=== PATIENT | female | born 1985 | race Caucasian/White ===

== ENCOUNTER 2016-12-03 14:30 | Inpatient (IN) | payer OTHER ==
[2016-12-03 14:42] VITALS: BMI 39.6
[2016-12-03] MEDS ORDERED: Sodium Chloride 0.9% 500 ML IV ONE (17:12)
[2016-12-03 18:02] LABS: BASO # 0.1 K/uL (0.0-0.2); BASO % 0.8 % (0.0-2.0); EOS # 0.1 K/uL (0.0-0.7); EOS % 1.2 % (0.0-4.0); HEMATOCRIT 30.5 % (34.0-47.0); LYMPH # 1.5 K/uL (1.0-4.3); MEAN CELL VOLUME 90.2 fL (81.0-99.0); MEAN CORPUSCULAR HGB CONC 31.1 g/dL (33.0-37.0); MEAN PLATELET VOLUME 8.2 fL (7.2-11.7); MONO # 0.7 K/uL (0.0-0.8); MONO % 6.9 % (0.0-10.0); RED CELL DISTRIBUTION WIDTH 25.4 % (11.5-14.5); WHITE BLOOD COUNT 9.8 K/uL (4.8-10.8)
[2016-12-03] MEDS ORDERED: Sodium Chloride 0.9% 1,000 ML ONE (18:02)
[2016-12-03 18:12] LABS: CHLORIDE 100 mmol/L (98-107); INR 1.5; POTASSIUM 3.5 mmol/L (3.6-5.2); SODIUM 137 mmol/L (132-148)
[2016-12-03 18:14] LABS: AST/SGOT 278 U/L (14-36); BILIRUBIN,TOTAL 4.9 mg/dL (0.2-1.3); CARBON DIOXIDE 27 mmol/L (22-30); GFR AFRICAN-AMERICAN > 60
[2016-12-03 18:15] LABS: ALB/GLOB RATIO 0.6 (1.0-2.1); ALKALINE PHOSPHATASE 516 U/L (38-126); ALT/SGPT 38 U/L (9-52); BLOOD UREA NITROGEN 3 mg/dL (7-17); CALCIUM 7.1 mg/dl (8.6-10.4); GLUCOSE,RANDOM 95 mg/dL (65-105); TOTAL PROTEIN 7.3 g/dL (6.3-8.3)
[2016-12-03 18:16] LABS: ALCOHOL SERUM 144 mg/dl (0-10)
[2016-12-03 19:23] LABS: RBC URINE 14 /hpf (0-3); URINE BACTERIA MOD (<OCC); URINE BILIRUBIN 2+ (NEGATIVE); URINE BLOOD 2+ (NEGATIVE); URINE COLOR Amber (YELLOW); URINE GLUCOSE (UA) 1+ mg/dL (Normal); URINE KETONE TRACE mg/dL (NEGATIVE); URINE PROTEIN 1+ mg/dL (NEGATIVE); WBC URINE 6 /hpf (0-5)
[2016-12-03 19:25] LABS: URINE LEUKOCYTE ESTERASE 1+ Leu/uL (Negative)
[2016-12-03] MEDS ORDERED: Iohexol 240 (50 ml) PO STA (19:55)
[2016-12-03] MEDS ORDERED: Multivitamin (MVI) 10 ML, Thiamine 100 MG, Folic Acid 1 MG in Sodium Chloride 0.9% 1,00... IV STA (19:56)
[2016-12-03] MEDS ORDERED: Iohexol 240 (50 ml) ONE (20:05)
[2016-12-03] MEDS ORDERED: Iohexol 350mg/ml 100 ML ONE (23:00)
--- NOTE | 2016-12-03 23:15 | CT ---
EXAM: CT Abdomen and Pelvis With Intravenous Contrast CLINICAL HISTORY: 31 years old, female; Pain; Abdominal pain; Epigastric; Additional info: Abd pain, alcohol abuse. H/o gastric sleeve? TECHNIQUE: Axial computed tomography images of the abdomen and pelvis with intravenous contrast. This CT exam was performed using one or more of the following dose reduction techniques: automated exposure control, adjustment of the mA and/or kV according to patient size, and/or use of iterative reconstruction technique. Coronal and sagittal reformatted images were created and reviewed. CONTRAST: 100 mL of omnipaque 350 administered intravenously. EXAM DATE/TIME: 12/03/2016 7:55 PM COMPARISON: There are no prior studies for comparison. FINDINGS: Lower thorax: Heart size is normal. There are atelectatic changes at the lung bases. There is patchy airspace disease at the lung bases. ABDOMEN: Liver: The liver is enlarged. There is fatty infiltration of the liver. Gallbladder and bile ducts: Gallbladder is distended. Common bile duct is poorly visualized. Pancreas: unremarkable Spleen: The spleen is enlarged. Adrenals: unremarkable Kidneys and ureters: unremarkable Stomach and bowel: There are postsurgical changes of gastric bypass. There is no obstruction. There is a small bowel intussusception in the mid abdomen without obstruction. There is a small bowel intussusception in the right abdomen without obstruction. There is mild distal small bowel fold thickening and spiculation. Terminal ileum and cecum are incompletely opacified. Appendix is not identified.Colon is incompletely distended which limits evaluation.There is diverticulosis. Appendix: See stomach and bowel PELVIS: Bladder: Bladder is almost empty. Reproductive: Uterus and adnexal structures are unremarkable. ABDOMEN and PELVIS: Intraperitoneal space: There is ascites in the abdomen and pelvis. There is anasarca.There is no There are degenerative changes in the osseus structures. Soft tissues: There is anasarca. Vasculature: unremarkable Lymph nodes: Vascular structures are unremarkable.There are nodular opacities in the retroperitoneum, varices versus nodes. IMPRESSION: Enlarged fatty liver and splenomegaly; ascites possibly due to liver disease; gastric bypass without obstruction; nonobstructing small bowel intussusceptions; possible enteritis; diverticulosis Additional findings as described above.
--- NOTE | 2016-12-04 00:07 | C.PDOC ---
Time Seen by Provider: 12/03/16 16:54 Chief Complaint (Nursing): Abdominal Pain History Per: Patient, Family Onset/Duration Of Symptoms: Days Current Symptoms Are (Timing): Still Present Context: Other (Alcohol abuse) Severity: Moderate Location Of Pain/Discomfort: RUQ, Epigastric, LUQ Quality Of Discomfort: Unable To Describe Associated Symptoms: Nausea Alleviating Factors: None Additional History Per: Prior Records Past Medical History Reviewed: Historical Data, Nursing Documentation, Vital Signs Vital Signs: Last Vital Signs Temp 100.4 F H 12/03/16 21:01 Pulse 107 H 12/03/16 21:01 Resp 22 12/03/16 21:01 BP 107/71 12/03/16 21:01 Pulse Ox 98 12/03/16 21:01 - Medical History PMH: Anemia, Anxiety, Back Problems Surgical History: Tonsillectomy Other Surgeries: Gastric bypass Family History: States: Unknown Family Hx - Social History Hx Tobacco Use: Yes Hx Alcohol Use: Yes Hx Substance Use: No - Immunization History Hx Tetanus Toxoid Vaccination: No Hx Influenza Vaccination: Yes Hx Pneumococcal Vaccination: No Review Of Systems Except As Marked, All Systems Reviewed And Found Negative. Constitutional: Positive for: Malaise Cardiovascular: Positive for: Edema. Negative for: Chest Pain Respiratory: Negative for: Shortness of Breath Gastrointestinal: Positive for: Abdominal Pain. Negative for: Vomiting, Diarrhea Musculoskeletal: Negative for: Neck Pain Skin: Positive for: Jaundice Neurological: Negative for: Weakness, Numbness, Seizures, Altered Mental Status Physical Exam - Physical Exam Appears: Chronically Ill Skin: Warm, Dry, Jaundice Head: Atraumatic Eye(s): bilateral: PERRL, EOMI, Scleral Icterus Neck: Normal ROM, Supple Cardiovascular: Rhythm Regular Respiratory: Normal Breath Sounds, No Accessory Muscle Use Gastrointestinal/Abdominal: Soft, Tenderness (nonspecific upper), Ascites Back: No CVA Tenderness Extremity: Normal ROM, Pedal Edema Neurological/Psych: Oriented x3, Normal Motor, Normal Sensation ED Course And Treatment - Laboratory Results Result Diagrams: 12/03/16 17:56 12/03/16 17:56 Lab Interpretation: Abnormal Interpretation Of Abnormal: Jaundice. Abnormal LFTs. Urine POC: Negative O2 Sat by Pulse Oximetry: 98 Pulse Ox Interpretation: Normal - Radiology CXR: Interpreted by Me, Viewed By Me CXR Interpretation: Yes: No Acute Disease - CT Scan/US CT abd/pelv. Other Rad Studies (CT/US): Read By Radiologist, Radiology Report Reviewed CT/US Interpretation: IMPRESSION: Enlarged fatty liver and splenomegaly; ascites possibly due to. liver disease; gastric bypass without obstruction; nonobstructing small bowel. intussusceptions; possible enteritis; diverticulosis. . Additional findings as described above. Progress - Interventions Interventions:: Observation, Intravenous fluid - Medications Administered Intravenous: Antiemetic, Other (PPI) - Data Reviewed Data Reviewed: Lab, Diagnostic imaging, Old records - Patient Status Patient status: Partially improved - Continuity of Care Discussed patient case with:: Patient, Family-HIPPA compliant, ED Nurse, Covering for PMD - Patient Plan Patient Plan: Admission Disposition Discussed With : Zachary Chung Comment: He accepted pt on his service. Doctor Will See Patient In The: Hospital Counseled Patient/Family Regarding: Studies Performed, Diagnosis - Disposition Disposition: HOSPITALIZED Disposition Time: 00:10 Condition: GUARDED - Clinical Impression Clinical Impression: Ascites, Hepatosplenomegaly, Jaundice, Alcohol abuse, Intussusception of small intestine
[2016-12-04] MEDS ORDERED: Ciprofloxacin 400mg/200ml D5W 400 MG/200 ML BAG IVPB STA (00:55)
[2016-12-04] MEDS ORDERED: Ciprofloxacin 400mg/200ml D5W 400 MG/200 ML BAG IVPB ONE (01:08)
[2016-12-04] MEDS ORDERED: Sodium Chloride 0.9% 1,000 ML IV SCH ×2 (13:00→15:08)
[2016-12-04] MEDS: Ciprofloxacin 400mg/200ml D5W 400 MG/200 ML BAG IVPB SCH (13:15)
--- NOTE | 2016-12-04 15:00 | RAD ---
HISTORY: Fever COMPARISON: None available. TECHNIQUE: Chest, one view. FINDINGS: Examination limited by habitus and hypoinflation. LUNGS: No focal consolidation. Central vascular congestion. Please note that chest x-ray has limited sensitivity for the detection of pulmonary masses. PLEURA: No significant pleural effusion identified. No definite pneumothorax . CARDIOVASCULAR: Heart size appears within normal limits. OSSEOUS STRUCTURES: Degenerative changes of the spine. VISUALIZED UPPER ABDOMEN: Mild elevation of the right hemidiaphragm. OTHER FINDINGS: None. IMPRESSION: Hypoinflation. Central vascular congestion.
--- NOTE | 2016-12-04 15:46 | PCM.PSYCH ---
Initial Psychiatric Evaluation - Initial Psychiatric Evaluation Type of Admission: Voluntary Legal Status: Capacity Chief Complaint (in patient's own words): I came in to get help." History of Present Illness and Precipitating Events: This is a 31 y/o HF admitted at [facility] because of abdominal pain. Today patient was consulted because of history of depression and alcohol abuse. Patient reports of a long history of alcohol abuse and depression. However she denies any history of inpatient psychiatric hospitalization but reports history of follow-up with a psychiatrist. As per the patient she has been drinking more than 5-10 beers on a daily basis. Yesterday she was drinking when she started developing abdominal pain so she came to the hospital to get help. Patient reports withdrawal symptoms including sweating, anxiety and headaches and shakes. However patient denies any feelings of hopelessness or helplessness or worthlessness. Patient denies any auditory or visual hallucinations or any psychotic symptoms. Denies any suicidal ideation or homicidal ideation. Denies any manic symptoms. Denies any other substance abuse. Past medical history None reported Current Medications: Active Medications Generic Name Dose Route Start Last Admin Trade Name Freq PRN Reason Stop Dose Admin Acetaminophen 650 mg 12/04/16 01:27 12/04/16 01:30 Tylenol 325mg Tab PO 650 mg Q6 PRN Administration Fever >100.4 F Chlordiazepoxide 25 mg 12/04/16 12:54 12/04/16 13:14 Librium PO 25 mg Q8 PRN Administration Anxiety Folic Acid 1 mg 12/04/16 13:00 12/04/16 13:14 Folic Acid PO 1 mg DAILY GERONIMO Administration Ciprofloxacin 400 mg in 200 mls @ 133 mls/hr 12/04/16 13:00 12/04/16 13:15 Cipro 400mg/200ml Dsw IVPB 133 mls/hr Q12H GERONIMO Administration Sodium Chloride 1,000 mls @ 70 mls/hr 12/04/16 15:08 Sodium Chloride 0.9% IV .[id number] GERONIMO Pantoprazole Sodium 40 mg 12/04/16 10:00 12/04/16 11:32 Protonix Inj IVP 40 mg DAILY GERONIMO Administration Thiamine HCl 100 mg 12/04/16 13:00 12/04/16 13:14 Vitamin B1 Tab PO 100 mg DAILY GERONIMO Administration Past Psychiatric History - Past Psychiatric History Previous Treatment History: Inpatient Pertinent Medical Hx (Current Medical&Sleep Prob, Allergies): Allergies Allergy/AdvReac Type Severity Reaction Status Date / Time Penicillins Allergy Severe ANAPHYLAXIS Verified 12/03/16 14:41 No Known Home Med 12/03/16 Review of Systems - Review of Systems All systems: reviewed and no additional remarkable complaints except - Psychiatric Psychiatric: Anxiety, Depression, Irritability. absent: Auditory Hallucinations , Suicidal Ideation Mental Status Examination - Personal Presentation Personal Presentation: Looks stated age - Affect Affect: Constricted, Depressed - Motor Activity Motor Activity: Calm - Reliability in Providing Information Reliability in Providing Information: Good - Speech Speech: Organized - Mood Mood: Depressed, Anxious - Formal Thought Process Formal Thought Process: No Impairment - Obsessions/Compulsions Obsessions: No Compulsions: No - Cognitive Functions Orientation: Person, Place, Situation, Time Sensorium: Alert Attention/Concentration: Attentive Abstract Thinking: [place] Estimate of Intelligence: Below average Judgement: Imparied, as evidence by: Poor judgement, Intact, as evidence by: Insight regarding need for hospitalization - Risk Risk: Withdrawal, Diminished functioning - Strength & Assets Inventory Strength & Assets Inventory: Family support DSM 5 DX - DSM 5 DSM 5 Diagnosis: Alcohol use disorder severe Alcohol withdrawal uncomplicated Major depressive disorder recurrrent moderate - Recommended/Plan of Treatment Treatment Recommendations and Plan of Treatment: Alcohol use disorder severe CBT Psychoeducation Supportive therapy, individual therapy Use MO for abstinence Alcohol withdrawal uncomplicated CBT Psychoeducation Supportive therapy, individual therapy Atrivan when necessary Atvan taper Start folic acid/thiamine/multivitamin Major depressive disorder recurrrent moderate CBT Psychoeducation Supportive therapy, group therapy, individual therapy Zoloft 50 mg PO Daily Trazodone 50 mg by mouth daily at bedtime
[2016-12-04 16:25] LABS: CHLORIDE 102 mmol/L (98-107); POTASSIUM 3.4 mmol/L (3.6-5.2); SODIUM 135 mmol/L (132-148)
[2016-12-04 16:28] LABS: CARBON DIOXIDE 26 mmol/L (22-30); GFR AFRICAN-AMERICAN > 60
[2016-12-04 16:29] LABS: BLOOD UREA NITROGEN 2 mg/dL (7-17); GLUCOSE,RANDOM 87 mg/dL (65-105)
--- NOTE | 2016-12-04 16:57 | CP.PCM.CON ---
<Rell Hutchinson - Last Filed: 12/04/16 16:51> History of Present Illness - History of Present Illness History of Present Illness: Gen Sx Consult: Dr Padron Pt is a 31F with PMH of gastric bypass and EtOH abuse. Pt presents with a 1month history of vague abdominal pain, 4/10, cramping in nature. Pt states she has had intermittent nausea, but only spits up saliva. Intermittently she will have streaks of blood. Also complains of excessive vaginal bleeding during her menstrual cycle. Pt admits to not taking bariatric vitamins regularly. Originally admitted for detox for EtOH abuse. CT abd performed due to abdominal pain, and read as concerning for intussussception. Review of Systems - Review of Systems All systems: reviewed and no additional remarkable complaints except (as per hpi ) Past Patient History - Past Medical History & Family History Past Medical History?: Yes - Past Social History Smoking Status: Quit 3 mos - CARDIAC Hx Cardiac Disorders: No - PULMONARY Hx Respiratory Disorders: No - NEUROLOGICAL Hx Neurological Disorder: No - HEENT Hx HEENT Problems: No - RENAL Hx Chronic Kidney Disease: No - ENDOCRINE/METABOLIC Hx Endocrine Disorders: No - HEMATOLOGICAL/ONCOLOGICAL Hx Blood Disorders: Yes Hx Anemia: Yes - INTEGUMENTARY Hx Dermatological Problems: No - MUSCULOSKELETAL/RHEUMATOLOGICAL Hx Musculoskeletal Disorders: No Hx Falls: No - GASTROINTESTINAL Hx Gastrointestinal Disorders: No - GENITOURINARY/GYNECOLOGICAL Hx Genitourinary Disorders: No - PSYCHIATRIC Hx Psychophysiologic Disorder: Yes Hx Anxiety: Yes Hx Substance Use: No - SURGICAL HISTORY Hx Surgeries: Yes Hx Tonsillectomy: Yes - ANESTHESIA Hx Anesthesia: Yes Hx Anesthesia Reactions: No Meds Allergies/Adverse Reactions: Allergies Allergy/AdvReac Type Severity Reaction Status Date / Time Penicillins Allergy Severe ANAPHYLAXIS Verified 12/03/16 14:41 - Medications Medications: Current Medications Folic Acid (Folic Acid) 1 mg PO DAILY [facility] Last Admin: 12/04/16 13:14 Dose: 1 mg Ciprofloxacin (Cipro 400mg/200ml Dsw) 400 mg in 200 mls @ 133 mls/hr IVPB Q12H [facility] Last Admin: 12/04/16 13:15 Dose: 133 mls/hr Sodium Chloride (Sodium Chloride 0.9%) 1,000 mls @ 70 mls/hr IV .[id number] [facility] Lorazepam (Ativan) 1 mg PO Q4H PRN PRN Reason: Symptoms of alcohol withdrawl Lorazepam (Ativan) 1 mg PO Q4 GERONIMO PRN Reason: Taper Stop: 12/09/16 15:59 Pantoprazole Sodium (Protonix Inj) 40 mg IVP DAILY [facility] Last Admin: 12/04/16 11:32 Dose: 40 mg Thiamine HCl (Vitamin B1 Tab) 100 mg PO DAILY [facility] Last Admin: 12/04/16 13:14 Dose: 100 mg Physical Exam - Constitutional Appears: Non-toxic, No Acute Distress - Head Exam Head Exam: NORMOCEPHALIC - ENT Exam ENT Exam: Normal Exam - Respiratory Exam Respiratory Exam: absent: Accessory Muscle Use, Respiratory Distress - Cardiovascular Exam Cardiovascular Exam: REGULAR RHYTHM - GI/Abdominal Exam GI & Abdominal Exam: Normal Bowel Sounds, Soft, Tenderness (LUQ). absent: Distended, Firm, Guarding, Hernia - Neurological Exam Neurological exam: Alert, Oriented x3 - Psychiatric Exam Psychiatric exam: Normal Affect, Normal Mood - Skin Skin Exam: Normal Color, Warm Results - Vital Signs Recent Vital Signs: Last Vital Signs Temp 98.7 F 12/04/16 16:00 Pulse 95 H 12/04/16 16:00 Resp 20 12/04/16 16:00 BP 113/73 12/04/16 16:00 Pulse Ox 99 12/04/16 16:00 - Labs Result Diagrams: 12/03/16 17:56 12/04/16 16:08 Labs: Laboratory Results - last 24 hr 12/04/16 12/04/16 13:57 16:08 Sodium 135 Potassium 3.4 L Chloride 102 Carbon Dioxide 26 Anion Gap 10 BUN 2 L Creatinine 0.5 L Est GFR ( Amer) > 60 Est GFR (Non-Af Amer) > 60 Random Glucose 87 Calcium 7.0 L Ammonia 19 Assessment & Plan - Assessment and Plan (Free Text) Assessment: 31F with gastric bypass and EtOH abuse; surgery consulted eval for intussussception Plan: abdominal exam benign at this time can continue regular diet pt would be poor candidate given cirrhosis intussussception likely incidental finding recommend GI consult for endoscopy r/o esophageal varices will d/w Dr Vito Hutchinson, PGY2 - Date & Time Date: 12/04/16 Time: 17:01 <Peyman Padron - Last Filed: 12/07/16 14:11> Meds - Medications Medications: Current Medications Folic Acid (Folic Acid) 1 mg PO DAILY [facility] Last Admin: 12/07/16 10:17 Dose: 1 mg Ciprofloxacin (Cipro 400mg/200ml Dsw) 400 mg in 200 mls @ 133 mls/hr IVPB Q12H [facility] Last Admin: 12/07/16 12:13 Dose: 133 mls/hr Metronidazole (Flagyl) 500 mg in 100 mls @ 100 mls/hr IVPB Q8H [facility] Last Admin: 12/07/16 11:22 Dose: 100 mls/hr Lorazepam (Ativan) 1 mg PO Q4H PRN PRN Reason: Symptoms of alcohol withdrawl Morphine Sulfate (Morphine) 2 mg IVP Q4 PRN PRN Reason: Pain, moderate (4-7) Last Admin: 12/07/16 01:40 Dose: 2 mg Pantoprazole Sodium (Protonix Inj) 40 mg IVP DAILY [facility] Last Admin: 12/07/16 10:12 Dose: 40 mg Potassium Chloride (Potassium Chloride Oral Soln) 40 meq PO Q4H GERONIMO Stop: 12/07/16 18:01 Sertraline HCl (Zoloft) 50 mg PO DAILY [facility] Last Admin: 12/07/16 10:17 Dose: 50 mg Sucralfate (Carafate Oral Susp) 1 gm PO ACBD [facility] Last Admin: 12/07/16 08:29 Dose: 1 gm Thiamine HCl (Vitamin B1 Tab) 100 mg PO DAILY [facility] Last Admin: 12/07/16 10:17 Dose: 100 mg Results - Vital Signs Recent Vital Signs: Last Vital Signs Temp 98.7 F 12/06/16 23:51 Pulse 97 H 12/06/16 23:51 Resp 20 12/06/16 23:51 BP 104/71 12/06/16 23:51 Pulse Ox 95 12/06/16 23:51 - Labs Result Diagrams: 12/07/16 12:39 12/07/16 12:39 Labs: Laboratory Results - last 24 hr 12/07/16 12/07/16 12:39 12:39 WBC 8.1 RBC 2.69 L Hgb 7.8 L Hct 24.5 L MCV 91.3 MCH 29.0 MCHC 31.7 L RDW 24.3 H Plt Count 214 MPV 8.6 Neut % (Auto) 74.0 Lymph % (Auto) 12.6 L [place] % (Auto) 11.4 H Eos % (Auto) 1.5 Baso % (Auto) 0.5 Neut # 6.0 Lymph # 1.0 [place] # 0.9 H Eos # 0.1 Baso # 0.0 Sodium 131 L Potassium 3.2 L Chloride 99 Carbon Dioxide 26 Anion Gap 9 L BUN < 2 L Creatinine 0.5 L Est GFR ( Amer) > 60 Est GFR (Non-Af Amer) > 60 Random Glucose 86 Calcium 6.6 L Total Bilirubin 3.9 H AST 141 H ALT 35 Alkaline Phosphatase 278 H Total Protein 5.6 L Albumin 1.7 L Globulin 3.8 Albumin/Globulin Ratio 0.4 L Attending/Attestation - Attestation I have personally seen and examined this patient.: Yes I have fully participated in the care of the patient.: Yes I have reviewed all pertinent clinical information: Yes Notes (Text): 12/07/16 14:10 Pt was seen and examined at bedside on 12/04/16 Agree with above note and assessment Pt with cirrhosis and Ascites and Abdominal pain CT scan findings of possible Intussusception Pt has mild abdominal tenderness No clinical evidence of intussusception IV antibiotics GI referral Plan d.w pt in detail Risk and benefit explained in detail.
--- NOTE | 2016-12-04 17:41 | CP.PCM.HP ---
Past Patient History - Past Medical History & Family History Past Medical History?: Yes - Past Social History Smoking Status: Quit 3 mos - CARDIAC Hx Cardiac Disorders: No - PULMONARY Hx Respiratory Disorders: No - NEUROLOGICAL Hx Neurological Disorder: No - HEENT Hx HEENT Problems: No - RENAL Hx Chronic Kidney Disease: No - ENDOCRINE/METABOLIC Hx Endocrine Disorders: No - HEMATOLOGICAL/ONCOLOGICAL Hx Blood Disorders: Yes Hx Anemia: Yes - INTEGUMENTARY Hx Dermatological Problems: No - MUSCULOSKELETAL/RHEUMATOLOGICAL Hx Musculoskeletal Disorders: No Hx Falls: No - GASTROINTESTINAL Hx Gastrointestinal Disorders: No - GENITOURINARY/GYNECOLOGICAL Hx Genitourinary Disorders: No - PSYCHIATRIC Hx Psychophysiologic Disorder: Yes Hx Anxiety: Yes Hx Substance Use: No - SURGICAL HISTORY Hx Surgeries: Yes Hx Tonsillectomy: Yes - ANESTHESIA Hx Anesthesia: Yes Hx Anesthesia Reactions: No Meds Allergies/Adverse Reactions: Allergies Allergy/AdvReac Type Severity Reaction Status Date / Time Penicillins Allergy Severe ANAPHYLAXIS Verified 12/03/16 14:41 Results - Vital Signs Recent Vital Signs: Last Vital Signs Temp 98.7 F 12/04/16 16:00 Pulse 95 H 12/04/16 16:00 Resp 20 12/04/16 16:00 BP 113/73 12/04/16 16:00 Pulse Ox 99 12/04/16 16:00 - Labs Result Diagrams: 12/03/16 17:56 12/04/16 16:08 Labs: Laboratory Results - last 24 hr 12/04/16 12/04/16 13:57 16:08 Sodium 135 Potassium 3.4 L Chloride 102 Carbon Dioxide 26 Anion Gap 10 BUN 2 L Creatinine 0.5 L Est GFR ( Amer) > 60 Est GFR (Non-Af Amer) > 60 Random Glucose 87 Calcium 7.0 L Ammonia 19
[2016-12-04] MEDS ORDERED: Potassium Chloride 20 mEq ER Tab PO ONE ×2 (18:00→20:30)
[2016-12-04] MEDS: metroNIDAZOLE IV 500 mg/100 ml 500 MG/100 ML BAG IVPB SCH (20:26)
[2016-12-05] MEDS: Ciprofloxacin 400mg/200ml D5W 400 MG/200 ML BAG IVPB SCH ×2 (00:29→12:11)
[2016-12-05] MEDS: metroNIDAZOLE IV 500 mg/100 ml 500 MG/100 ML BAG IVPB SCH ×3 (03:06→20:30)
[2016-12-05 08:12] LABS: BASO # 0.1 K/uL (0.0-0.2); BASO % 1.4 % (0.0-2.0); EOS # 0.3 K/uL (0.0-0.7); EOS % 3.3 % (0.0-4.0); HEMATOCRIT 27.2 % (34.0-47.0); LYMPH # 0.9 K/uL (1.0-4.3); LYMPH % 12.2 % (20.0-40.0); MEAN CELL VOLUME 90.2 fL (81.0-99.0); MEAN CORPUSCULAR HEMOGLOBIN 28.4 pg (27.0-31.0); MEAN CORPUSCULAR HGB CONC 31.4 g/dL (33.0-37.0); MEAN PLATELET VOLUME 8.5 fL (7.2-11.7); MONO # 0.5 K/uL (0.0-0.8); RED CELL DISTRIBUTION WIDTH 24.6 % (11.5-14.5); WHITE BLOOD COUNT 7.8 K/uL (4.8-10.8)
[2016-12-05 08:26] LABS: CHLORIDE 98 mmol/L (98-107)
[2016-12-05 08:27] LABS: POTASSIUM 3.1 mmol/L (3.6-5.2); SODIUM 131 mmol/L (132-148)
[2016-12-05 08:29] LABS: ALB/GLOB RATIO 0.4 (1.0-2.1); ALKALINE PHOSPHATASE 344 U/L (38-126); AST/SGOT 149 U/L (14-36); BILIRUBIN,TOTAL 4.2 mg/dL (0.2-1.3); CARBON DIOXIDE 25 mmol/L (22-30); CHOLESTEROL 72 mg/dL (0-199); GFR AFRICAN-AMERICAN > 60; TOTAL PROTEIN 5.9 g/dL (6.3-8.3)
[2016-12-05 08:30] LABS: ALT/SGPT 34 U/L (9-52); CALCIUM 6.7 mg/dl (8.6-10.4); GLUCOSE,RANDOM 90 mg/dL (65-105)
[2016-12-05 08:32] LABS: BLOOD UREA NITROGEN < 2 mg/dL (7-17)
[2016-12-05] MEDS: Potassium Chloride 20 mEq ER Tab PO SCH ×2 (11:15→13:42)
[2016-12-05] MEDS ORDERED: Phytonadione 10 mg/ml Inj (Adult) SC STA (11:31)
--- NOTE | 2016-12-05 13:24 | PN ---
DATE: 12/05/2016 LOCATION: 371, bed B. This is a 31-year-old female seen and examined in round today, seen on 12/04/16 for GI consultation a s requested by the admitting MD. The patient was admitted with underlying diagnosis of possible intu ssusception with a complaint of intermittent period of abdominal pain, generalized weakness and malai se with abnormal CAT scan of the abdomen and the pelvis. No reported nausea or vomiting and no repor stephon active bleeding. The entire chart is reviewed including, but not limited to most recent lab and radiology study results, current and the previous medication lists, current and the previous medical events as well as allergies to medication list and today's labs showed low hemoglobin of 8.6, hematoc rit 27.2 with normal platelet count and subsequent drop of sodium to 131, low potassium 3.1 with decr eased BUN and creatinine as well as low calcium of 6.7 with total bilirubin elevated to 4.2, increase d AST to 149, but normal ALT indicative of possible alcoholic liver disease with alkaline phosphatase 334 with albumin 1.8, total protein low at 5.7. Alcohol serum level was excessively increased to 144. PHYSICAL EXAMINATION: GENERAL: A 31-year-old female, appears to be restless and agitated. VITAL SIGNS: Afebrile with pulse of 104, blood pressure 108/68 with respiratory rate 20-22. HEENT: Showed pale, dry oral mucoid membrane with bilateral icteric sclerae. LUNGS: Few scattered crepitation, decreased air entry at bases. HEART: Positive S1 and S2 with increased rate. ABDOMEN: Soft with mild generalized tenderness. No mass or organomegaly. No rebound tenderness or guarding, with mild distention with excessive hyperactive bowel sounds. RECTAL: The patient refused. EXTREMITIES: With mild edematous changes. No clubbing or cyanosis. NEUROLOGIC: No reported new neurologic deficits, sensory or motor. IMPRESSION: 1. Abnormal CAT scan of the abdomen and pelvis with possible intussusception. 2. Alcoholic liver disease. 3. Abnormal liver function tests with jaundice secondary to above as well as fatty infiltrate of the liver. 4. Known history of status post gastric bypass surgery. 5. Known history of severe anxiety syndrome with chronic lower back pain syndrome. 6. Anemia, to rule out gastrointestinal bleeding, upper versus lower. 7. Electrolyte imbalance with hyponatremia, hypokalemia as well as hypocalcemia. 8. Malnutrition with severe hypoalbuminemia and hypoproteinemia. SUGGESTION: 1. Agree with your plan. 2. The patient will need albumin IV. 3. Correct any underlying coagulopathy. Surgical followup and close observation to follow. 4. Observe the patient for possible ____ DT with Ativan and/or Valium IV. 5. I prefer to transfer the patient at this point to the intensive care unit for close observation. 6. Flat and upright abdominal x-ray. 7. Further recommendation to follow and vitamin K subQ to be ordered. The patient also may benefit from endoscopic evaluation of the GI tract only when the patient is more stable clinically. Again, c lose observation with surgical followup should be kept in mind. Jeremy Reed MD cc: 14 TT: 12/05/2016 13:23:28 Confirmation # [id number] Dictation # [id number]
--- NOTE | 2016-12-05 14:40 | CP.PCM.PN ---
<Rell Hutchinson - Last Filed: 12/05/16 14:37> Subjective - Date & Time of Evaluation Date of Evaluation: 12/05/16 Time of Evaluation: 07:15 - Subjective Subjective: Gen Sx: Dr padron Pt S&E. NAEO. Resting comfortably. Denies pain at this time. Tolerating regular diet. Denies n/v, f/c. Having bowel movements Objective - Vital Signs/Intake and Output Vital Signs (last 24 hours): Temp Pulse Resp BP Pulse Ox 98.9 F 110 H 20 101/66 98 12/05/16 08:06 12/05/16 08:06 12/05/16 08:06 12/05/16 08:06 12/05/16 08:06 Intake and Output: 12/05/16 12/05/16 06:59 18:59 Intake Total 250 350 Balance 250 350 - Medications Medications: Current Medications Folic Acid (Folic Acid) 1 mg PO DAILY [facility] Last Admin: 12/05/16 11:13 Dose: 1 mg Ciprofloxacin (Cipro 400mg/200ml Dsw) 400 mg in 200 mls @ 133 mls/hr IVPB Q12H [facility] Last Admin: 12/05/16 12:11 Dose: 133 mls/hr Metronidazole (Flagyl) 500 mg in 100 mls @ 100 mls/hr IVPB Q8H [facility] Last Admin: 12/05/16 12:12 Dose: 100 mls/hr Lorazepam (Ativan) 1 mg PO Q4H PRN PRN Reason: Symptoms of alcohol withdrawl Lorazepam (Ativan) 1 mg PO Q4 [facility] PRN Reason: Taper Stop: 12/09/16 15:59 Last Admin: 12/05/16 12:09 Dose: 1 mg Morphine Sulfate (Morphine) 2 mg IVP Q4 PRN PRN Reason: Pain, moderate (4-7) Last Admin: 12/05/16 00:38 Dose: 2 mg Pantoprazole Sodium (Protonix Inj) 40 mg IVP DAILY [facility] Last Admin: 12/05/16 11:13 Dose: 40 mg Thiamine HCl (Vitamin B1 Tab) 100 mg PO DAILY [facility] Last Admin: 12/05/16 11:13 Dose: 100 mg - Labs Labs: 12/05/16 08:06 12/05/16 08:06 PT 16.9 SECONDS (9.7-12.2) H 12/03/16 17:56 INR 1.5 12/03/16 17:56 APTT 46 SECONDS (21-34) H 12/03/16 17:56 - Constitutional Appears: Non-toxic, No Acute Distress - Respiratory Exam Respiratory Exam: absent: Accessory Muscle Use, Respiratory Distress - Cardiovascular Exam Cardiovascular Exam: REGULAR RHYTHM - GI/Abdominal Exam GI & Abdominal Exam: Soft, Normal Bowel Sounds. 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 If symptoms persistent would recommend gastrograffin enema Recommend upper GI endoscopy to r/o varices anemia likely 2/2 to prolonged menstrual period d/w Dr Vito Hutchinson, PGY2 <Peyman Padron B - Last Filed: 12/07/16 14:16> Objective - Vital Signs/Intake and Output Vital Signs (last 24 hours): Temp Pulse Resp BP Pulse Ox 98.7 F 97 H 20 104/71 95 12/06/16 23:51 12/06/16 23:51 12/06/16 23:51 12/06/16 23:51 12/06/16 23:51 Intake and Output: 12/07/16 12/07/16 06:59 18:59 Intake Total 450 590 Balance 450 590 - Medications Medications: Current Medications Folic Acid (Folic Acid) 1 mg PO DAILY [facility] Last Admin: 12/07/16 10:17 Dose: 1 mg Ciprofloxacin (Cipro 400mg/200ml Dsw) 400 mg in 200 mls @ 133 mls/hr IVPB Q12H [facility] Last Admin: 12/07/16 12:13 Dose: 133 mls/hr Metronidazole (Flagyl) 500 mg in 100 mls @ 100 mls/hr IVPB Q8H [facility] Last Admin: 12/07/16 11:22 Dose: 100 mls/hr Lorazepam (Ativan) 1 mg PO Q4H PRN PRN Reason: Symptoms of alcohol withdrawl Morphine Sulfate (Morphine) 2 mg IVP Q4 PRN PRN Reason: Pain, moderate (4-7) Last Admin: 12/07/16 01:40 Dose: 2 mg Pantoprazole Sodium (Protonix Inj) 40 mg IVP DAILY [facility] Last Admin: 12/07/16 10:12 Dose: 40 mg Potassium Chloride (Potassium Chloride Oral Soln) 40 meq PO Q4H [facility] Stop: 12/07/16 18:01 Sertraline HCl (Zoloft) 50 mg PO DAILY [facility] Last Admin: 12/07/16 10:17 Dose: 50 mg Sucralfate (Carafate Oral Susp) 1 gm PO ACBD [facility] Last Admin: 12/07/16 08:29 Dose: 1 gm Thiamine HCl (Vitamin B1 Tab) 100 mg PO DAILY [facility] Last Admin: 12/07/16 10:17 Dose: 100 mg - Labs Labs: 12/07/16 12:39 12/07/16 12:39 PT 16.9 SECONDS (9.7-12.2) H 12/03/16 17:56 INR 1.5 12/03/16 17:56 APTT 46 SECONDS (21-34) H 12/03/16 17:56 Attending/Attestation - Attestation I have personally seen and examined this patient.: Yes I have fully participated in the care of the patient.: Yes I have reviewed all pertinent clinical information, including history, physical exam and plan: Yes Notes (Text): 12/07/16 14:15 Pt was seen and examined at bedside on 12/05/16 Agree with above note and assessment Pt with Cirrhosis and Ascites No clinical evidence of Intussusception We will f/u after EGD Plan d.w pt in detail Risk and benefit explained in detail
--- NOTE | 2016-12-05 16:37 | CP.PCM.PN ---
Subjective - Date & Time of Evaluation Date of Evaluation: 12/05/16 Time of Evaluation: 16:36 Objective - Vital Signs/Intake and Output Vital Signs (last 24 hours): Temp Pulse Resp BP Pulse Ox 98.9 F 110 H 20 101/66 98 12/05/16 08:06 12/05/16 08:06 12/05/16 08:06 12/05/16 08:06 12/05/16 08:06 Intake and Output: 12/05/16 12/05/16 06:59 18:59 Intake Total 250 350 Balance 250 350 - Medications Medications: Current Medications Folic Acid (Folic Acid) 1 mg PO DAILY [facility] Last Admin: 12/05/16 11:13 Dose: 1 mg Ciprofloxacin (Cipro 400mg/200ml Dsw) 400 mg in 200 mls @ 133 mls/hr IVPB Q12H [facility] Last Admin: 12/05/16 12:11 Dose: 133 mls/hr Metronidazole (Flagyl) 500 mg in 100 mls @ 100 mls/hr IVPB Q8H [facility] Last Admin: 12/05/16 12:12 Dose: 100 mls/hr Lorazepam (Ativan) 1 mg PO Q4H PRN PRN Reason: Symptoms of alcohol withdrawl Lorazepam (Ativan) 1 mg PO Q6 [facility] PRN Reason: Taper Stop: 12/09/16 15:59 Last Admin: 12/05/16 12:09 Dose: 1 mg Morphine Sulfate (Morphine) 2 mg IVP Q4 PRN PRN Reason: Pain, moderate (4-7) Last Admin: 12/05/16 00:38 Dose: 2 mg Pantoprazole Sodium (Protonix Inj) 40 mg IVP DAILY [facility] Last Admin: 12/05/16 11:13 Dose: 40 mg Thiamine HCl (Vitamin B1 Tab) 100 mg PO DAILY [facility] Last Admin: 12/05/16 11:13 Dose: 100 mg - Labs Labs: 12/05/16 08:06 12/05/16 08:06 PT 16.9 SECONDS (9.7-12.2) H 12/03/16 17:56 INR 1.5 12/03/16 17:56 APTT 46 SECONDS (21-34) H 12/03/16 17:56
[2016-12-06] MEDS: Ciprofloxacin 400mg/200ml D5W 400 MG/200 ML BAG IVPB SCH ×2 (00:09→13:52)
[2016-12-06] MEDS: metroNIDAZOLE IV 500 mg/100 ml 500 MG/100 ML BAG IVPB SCH ×3 (03:07→20:00)
[2016-12-06] MEDS ORDERED: Propofol 10 mg/ml Inj (20 ML) ONE (10:42)
--- NOTE | 2016-12-06 14:20 | CP.PCM.PN ---
<Rell Hutchinson Aracely - Last Filed: 12/06/16 14:15> Subjective - Date & Time of Evaluation Date of Evaluation: 12/06/16 Time of Evaluation: 14:16 - Subjective Subjective: Gen Sx: Dr Padron Pt S&E. CRISTOBALO. Denies pain. Tolerating diet, NPO @[place] for EGD. Having BMs/. Denies n/v, sob, f/c Objective - Vital Signs/Intake and Output Vital Signs (last 24 hours): Temp Pulse Resp BP Pulse Ox 97.8 F 91 H 26 H 107/53 L 100 12/06/16 11:21 12/06/16 11:21 12/06/16 11:21 12/06/16 11:21 12/06/16 11:21 Intake and Output: 12/06/16 12/06/16 06:59 18:59 Intake Total 770 450 Output Total 3 2 Balance 767 448 - Medications Medications: Current Medications Folic Acid (Folic Acid) 1 mg PO DAILY [facility] Last Admin: 12/06/16 10:32 Dose: Not Given Ciprofloxacin (Cipro 400mg/200ml Dsw) 400 mg in 200 mls @ 133 mls/hr IVPB Q12H [facility] Last Admin: 12/06/16 13:52 Dose: 133 mls/hr Metronidazole (Flagyl) 500 mg in 100 mls @ 100 mls/hr IVPB Q8H [facility] Last Admin: 12/06/16 12:23 Dose: 100 mls/hr Lorazepam (Ativan) 1 mg PO Q4H PRN PRN Reason: Symptoms of alcohol withdrawl Lorazepam (Ativan) 1 mg PO Q6 [facility] PRN Reason: Taper Stop: 12/09/16 15:59 Last Admin: 12/06/16 12:22 Dose: 1 mg Morphine Sulfate (Morphine) 2 mg IVP Q4 PRN PRN Reason: Pain, moderate (4-7) Last Admin: 12/06/16 12:31 Dose: 2 mg Pantoprazole Sodium (Protonix Inj) 40 mg IVP DAILY [facility] Last Admin: 12/06/16 10:36 Dose: 40 mg Sertraline HCl (Zoloft) 50 mg PO DAILY [facility] Last Admin: 12/06/16 10:24 Dose: Not Given Sucralfate (Carafate Oral Susp) 1 gm PO ACBD [facility] Thiamine HCl (Vitamin B1 Tab) 100 mg PO DAILY [facility] Last Admin: 12/06/16 10:36 Dose: Not Given - Labs Labs: 12/05/16 08:06 12/05/16 08:06 PT 16.9 SECONDS (9.7-12.2) H 12/03/16 17:56 INR 1.5 12/03/16 17:56 APTT 46 SECONDS (21-34) H 12/03/16 17:56 - Constitutional Appears: Non-toxic, No Acute Distress - Respiratory Exam Respiratory Exam: absent: Respiratory Distress - Cardiovascular Exam Cardiovascular Exam: REGULAR RHYTHM - GI/Abdominal Exam GI & Abdominal Exam: Soft, Normal Bowel Sounds. absent: Distended, Tenderness, Mass - Neurological Exam Neurological Exam: Alert, Awake, Oriented x3 - Psychiatric Exam Psychiatric exam: Normal Affect, Normal Mood - Skin Skin Exam: Normal Color, Warm Assessment and Plan - Assessment and Plan (Free Text) Assessment: 31F with abdominal pain which has resolved Plan: EGD per GI further mgmt per GI and primary Abdominal pain resolved - CT findings likely peristalsis No surgical intervention please reconsult if necessary d/w Dr Vito Hutchinson, PGY2 <Peyman Padron B - Last Filed: 12/07/16 14:22> Objective - Vital Signs/Intake and Output Vital Signs (last 24 hours): Temp Pulse Resp BP Pulse Ox 98.7 F 97 H 20 104/71 95 12/06/16 23:51 12/06/16 23:51 12/06/16 23:51 12/06/16 23:51 12/06/16 23:51 Intake and Output: 12/07/16 12/07/16 06:59 18:59 Intake Total 450 590 Balance 450 590 - Medications Medications: Current Medications Folic Acid (Folic Acid) 1 mg PO DAILY [facility] Last Admin: 12/07/16 10:17 Dose: 1 mg Ciprofloxacin (Cipro 400mg/200ml Dsw) 400 mg in 200 mls @ 133 mls/hr IVPB Q12H [facility] Last Admin: 12/07/16 12:13 Dose: 133 mls/hr Metronidazole (Flagyl) 500 mg in 100 mls @ 100 mls/hr IVPB Q8H [facility] Last Admin: 12/07/16 11:22 Dose: 100 mls/hr Lorazepam (Ativan) 1 mg PO Q4H PRN PRN Reason: Symptoms of alcohol withdrawl Morphine Sulfate (Morphine) 2 mg IVP Q4 PRN PRN Reason: Pain, moderate (4-7) Last Admin: 12/07/16 01:40 Dose: 2 mg Pantoprazole Sodium (Protonix Inj) 40 mg IVP DAILY [facility] Last Admin: 12/07/16 10:12 Dose: 40 mg Potassium Chloride (Potassium Chloride Oral Soln) 40 meq PO Q4H [facility] Stop: 12/07/16 18:01 Sertraline HCl (Zoloft) 50 mg PO DAILY [facility] Last Admin: 12/07/16 10:17 Dose: 50 mg Sucralfate (Carafate Oral Susp) 1 gm PO ACBD [facility] Last Admin: 12/07/16 08:29 Dose: 1 gm Thiamine HCl (Vitamin B1 Tab) 100 mg PO DAILY [facility] Last Admin: 12/07/16 10:17 Dose: 100 mg - Labs Labs: 12/07/16 12:39 12/07/16 12:39 PT 16.9 SECONDS (9.7-12.2) H 12/03/16 17:56 INR 1.5 12/03/16 17:56 APTT 46 SECONDS (21-34) H 12/03/16 17:56 Attending/Attestation - Attestation I have personally seen and examined this patient.: Yes I have fully participated in the care of the patient.: Yes I have reviewed all pertinent clinical information, including history, physical exam and plan: Yes Notes (Text): 12/07/16 14:20 Pt was seen and examined at bedside on 12/06/16 Agree with above note and assessment Pt with resolved abdominal pain EGD is suggestive of Esophagitis and varices Pt can be DC home f.U as out pt. Plan d.w pt in detail Risk and benefit explained in detail
[2016-12-06 16:20] VITALS: RESP 20
[2016-12-06] MEDS: Sucralfate 1 gm/10 ml Oral Susp UD PO SCH (17:13)
--- NOTE | 2016-12-06 18:57 | CP.PCM.PN ---
Subjective - Date & Time of Evaluation Date of Evaluation: 12/06/16 Objective - Vital Signs/Intake and Output Vital Signs (last 24 hours): Temp Pulse Resp BP Pulse Ox 99.0 F 108 H 20 102/57 L 93 L 12/06/16 16:00 12/06/16 16:00 12/06/16 16:00 12/06/16 16:00 12/06/16 16:00 Intake and Output: 12/06/16 12/06/16 06:59 18:59 Intake Total 770 450 Output Total 3 2 Balance 767 448 - Medications Medications: Current Medications Folic Acid (Folic Acid) 1 mg PO DAILY [facility] Last Admin: 12/06/16 10:32 Dose: Not Given Ciprofloxacin (Cipro 400mg/200ml Dsw) 400 mg in 200 mls @ 133 mls/hr IVPB Q12H [facility] Last Admin: 12/06/16 13:52 Dose: 133 mls/hr Metronidazole (Flagyl) 500 mg in 100 mls @ 100 mls/hr IVPB Q8H [facility] Last Admin: 12/06/16 12:23 Dose: 100 mls/hr Lorazepam (Ativan) 1 mg PO Q4H PRN PRN Reason: Symptoms of alcohol withdrawl Lorazepam (Ativan) 1 mg PO Q6 [facility] PRN Reason: Taper Stop: 12/09/16 15:59 Last Admin: 12/06/16 17:13 Dose: 1 mg Morphine Sulfate (Morphine) 2 mg IVP Q4 PRN PRN Reason: Pain, moderate (4-7) Last Admin: 12/06/16 17:19 Dose: 2 mg Pantoprazole Sodium (Protonix Inj) 40 mg IVP DAILY [facility] Last Admin: 12/06/16 10:36 Dose: 40 mg Sertraline HCl (Zoloft) 50 mg PO DAILY [facility] Last Admin: 12/06/16 10:24 Dose: Not Given Sucralfate (Carafate Oral Susp) 1 gm PO ACBD [facility] Last Admin: 12/06/16 17:13 Dose: 1 gm Thiamine HCl (Vitamin B1 Tab) 100 mg PO DAILY [facility] Last Admin: 12/06/16 10:36 Dose: Not Given - Labs Labs: 12/05/16 08:06 12/05/16 08:06 PT 16.9 SECONDS (9.7-12.2) H 12/03/16 17:56 INR 1.5 12/03/16 17:56 APTT 46 SECONDS (21-34) H 12/03/16 17:56
[2016-12-07] MEDS: Ciprofloxacin 400mg/200ml D5W 400 MG/200 ML BAG IVPB SCH ×2 (00:39→12:13)
[2016-12-07] MEDS: metroNIDAZOLE IV 500 mg/100 ml 500 MG/100 ML BAG IVPB SCH ×3 (03:33→19:10)
[2016-12-07] MEDS: Sucralfate 1 gm/10 ml Oral Susp UD PO SCH ×2 (08:29→16:30)
--- NOTE | 2016-12-07 10:45 | PN ---
DATE: 12/07/2016 LOCATION: 371, bed B. HISTORY OF PRESENT ILLNESS: This is a 31-year-old female seen and examined today without significant clinical changes. Awake, alert, oriented, tolerated oral intake. The entire chart is reviewed, including but not limited to most recent lab and radiology study result s, current and previous medication list, current and the previous medical events, and the latest bloo d workup showed hemoglobin of 8.6, hematocrit 27.2 with normal platelet count, but low sodium of 131, potassium 3.1 with decreased BUN and creatinine, as well as low calcium 6.7 with total bilirub in 4.2 and AST of 149, but normal ALT indicative of possible alcohol-induced abnormal liver function test. Her albumin is very low at 1.8 with low total protein 5.6. PHYSICAL EXAMINATION: GENERAL: A 31-year-old female. VITAL SIGNS: Afebrile with heart rate of 96, respiratory rate 20-22, blood pressure 108/74. HEENT: Showed pale, dry oral mucoid membrane. Mild icteric sclerae. LUNGS: Few scattered crepitation, decreased air entry at bases. HEART: Positive S1 and S2 with increased rate. ABDOMEN: Soft with mild distention and slight generalized tenderness. No mass or organomegaly. No rebound tenderness or guarding. RECTAL: The patient refused. EXTREMITIES: With edematous changes. No clubbing or cyanosis. NEUROLOGIC: No new reported neurological deficits, sensory or motor. It has to be mentioned that the patient has evidence of ascites with edematous changes also, mild ___ __ in the upper extremities. IMPRESSION: 1. Abnormal liver function test believed to be secondary to alcohol-induced. 2. Mild ascites. 3. Peptic ulcer disease. 4. Status post gastric bypass surgery. 5. Known history of severe anxiety syndrome. 6. Chronic lower back pain syndrome. 7. Anemia, which could be secondary to above. 8. Electrolyte imbalance. 9. Malnutrition with hypoalbuminemia, hypoproteinemia. SUGGESTION: 1. Agree with your plan. 2. Correct any underlying electrolyte imbalance before discharge home. 3. Albumin IV. 4. Follow up on cancer markers including CEA and CA-125. We will follow up closely with you. Jeremy Reed MD cc: 14 TT: 12/07/2016 10:45:00 Confirmation # [id number] Dictation # [id number] mn
--- NOTE | 2016-12-07 11:19 | CP.PCM.PN ---
Subjective - Date & Time of Evaluation Date of Evaluation: 12/07/16 Time of Evaluation: 11:18 Objective - Vital Signs/Intake and Output Vital Signs (last 24 hours): Temp Pulse Resp BP Pulse Ox 98.7 F 97 H 20 104/71 95 12/06/16 23:51 12/06/16 23:51 12/06/16 23:51 12/06/16 23:51 12/06/16 23:51 Intake and Output: 12/07/16 12/07/16 06:59 18:59 Intake Total 450 590 Balance 450 590 - Medications Medications: Current Medications Folic Acid (Folic Acid) 1 mg PO DAILY [facility] Last Admin: 12/07/16 10:17 Dose: 1 mg Ciprofloxacin (Cipro 400mg/200ml Dsw) 400 mg in 200 mls @ 133 mls/hr IVPB Q12H [facility] Last Admin: 12/07/16 00:39 Dose: 133 mls/hr Metronidazole (Flagyl) 500 mg in 100 mls @ 100 mls/hr IVPB Q8H [facility] Last Admin: 12/07/16 03:33 Dose: 100 mls/hr Lorazepam (Ativan) 1 mg PO Q4H PRN PRN Reason: Symptoms of alcohol withdrawl Lorazepam (Ativan) 1 mg PO Q6 [facility] PRN Reason: Taper Stop: 12/09/16 15:59 Last Admin: 12/07/16 06:06 Dose: 1 mg Morphine Sulfate (Morphine) 2 mg IVP Q4 PRN PRN Reason: Pain, moderate (4-7) Last Admin: 12/07/16 01:40 Dose: 2 mg Pantoprazole Sodium (Protonix Inj) 40 mg IVP DAILY [facility] Last Admin: 12/07/16 10:12 Dose: 40 mg Sertraline HCl (Zoloft) 50 mg PO DAILY [facility] Last Admin: 12/07/16 10:17 Dose: 50 mg Sucralfate (Carafate Oral Susp) 1 gm PO ACBD [facility] Last Admin: 12/07/16 08:29 Dose: 1 gm Thiamine HCl (Vitamin B1 Tab) 100 mg PO DAILY [facility] Last Admin: 12/07/16 10:17 Dose: 100 mg - Labs Labs: 12/05/16 08:06 12/05/16 08:06 PT 16.9 SECONDS (9.7-12.2) H 12/03/16 17:56 INR 1.5 12/03/16 17:56 APTT 46 SECONDS (21-34) H 12/03/16 17:56
[2016-12-07 12:44] LABS: BASO % 0.5 % (0.0-2.0); EOS # 0.1 K/uL (0.0-0.7); EOS % 1.5 % (0.0-4.0); HEMATOCRIT 24.5 % (34.0-47.0); LYMPH % 12.6 % (20.0-40.0); MEAN CELL VOLUME 91.3 fL (81.0-99.0); MEAN CORPUSCULAR HGB CONC 31.7 g/dL (33.0-37.0); MEAN PLATELET VOLUME 8.6 fL (7.2-11.7); MONO # 0.9 K/uL (0.0-0.8); MONO % 11.4 % (0.0-10.0); RED CELL DISTRIBUTION WIDTH 24.3 % (11.5-14.5); WHITE BLOOD COUNT 8.1 K/uL (4.8-10.8)
[2016-12-07 13:03] LABS: CHLORIDE 99 mmol/L (98-107); POTASSIUM 3.2 mmol/L (3.6-5.2); SODIUM 131 mmol/L (132-148)
[2016-12-07 13:05] LABS: AST/SGOT 141 U/L (14-36); BILIRUBIN,TOTAL 3.9 mg/dL (0.2-1.3); CARBON DIOXIDE 26 mmol/L (22-30); GFR AFRICAN-AMERICAN > 60; TOTAL PROTEIN 5.6 g/dL (6.3-8.3)
[2016-12-07 13:06] LABS: ALB/GLOB RATIO 0.4 (1.0-2.1); ALKALINE PHOSPHATASE 278 U/L (38-126); ALT/SGPT 35 U/L (9-52); BLOOD UREA NITROGEN < 2 mg/dL (7-17); CALCIUM 6.6 mg/dl (8.6-10.4); GLUCOSE,RANDOM 86 mg/dL (65-105)
[2016-12-07] MEDS: Potassium Chloride 20 mEq/15 ml LIQ UD PO SCH ×2 (14:22→18:07)
[2016-12-07 16:07] LABS: MAGNESIUM 1.5 mg/dL (1.6-2.3)
[2016-12-08] MEDS: Ciprofloxacin 400mg/200ml D5W 400 MG/200 ML BAG IVPB SCH ×2 (00:36→13:15)
[2016-12-08] MEDS: metroNIDAZOLE IV 500 mg/100 ml 500 MG/100 ML BAG IVPB SCH ×2 (04:15→11:52)
[2016-12-08] MEDS: Sucralfate 1 gm/10 ml Oral Susp UD PO SCH (08:03)
[2016-12-08 08:10] LABS: BASO # 0.1 K/uL (0.0-0.2); BASO % 0.6 % (0.0-2.0); EOS # 0.1 K/uL (0.0-0.7); EOS % 1.4 % (0.0-4.0); HEMATOCRIT 28.1 % (34.0-47.0); LYMPH # 1.2 K/uL (1.0-4.3); LYMPH % 14.1 % (20.0-40.0); MEAN CELL VOLUME 90.7 fL (81.0-99.0); MEAN CORPUSCULAR HEMOGLOBIN 29.1 pg (27.0-31.0); MEAN CORPUSCULAR HGB CONC 32.1 g/dL (33.0-37.0); MEAN PLATELET VOLUME 8.6 fL (7.2-11.7); MONO # 0.8 K/uL (0.0-0.8); MONO % 9.6 % (0.0-10.0); NRBC % 0.1 % (0.0-2.0); RED CELL DISTRIBUTION WIDTH 23.2 % (11.5-14.5); WHITE BLOOD COUNT 8.9 K/uL (4.8-10.8)
[2016-12-08 08:14] VITALS: BP 109/73; PULSE 99; TEMP 97.8; O2SAT 95
[2016-12-08 08:30] LABS: CHLORIDE 104 mmol/L (98-107); POTASSIUM 3.6 mmol/L (3.6-5.2); SODIUM 135 mmol/L (132-148)
[2016-12-08 08:33] LABS: CARBON DIOXIDE 26 mmol/L (22-30); GFR AFRICAN-AMERICAN > 60; GLUCOSE,RANDOM 87 mg/dL (65-105)
[2016-12-08 08:34] LABS: BLOOD UREA NITROGEN < 2 mg/dL (7-17); MAGNESIUM 1.7 mg/dL (1.6-2.3)
--- NOTE | 2016-12-08 10:54 | CON ---
DATE: 12/04/[address] Jeremy Reed to Dr. Zachary Chung. I was called for a GI consultation by the admitting MD. The patient was examined for GI consultation on 12/04/2016 as requested by the admitting medical team. The entire chart is reviewed, including b ut not limited to the most recent lab and radiology study results, current and the previous medicatio n lists, current and the previous medical events, allergies to medications list as well as all the av ailable current and the previous medical records. Case was discussed at length with the admitting hi dical team. HISTORY OF PRESENT ILLNESS: This is a 31-year-old female who was admitted to the hospital with sever e epigastric pain, right upper quadrant pain, left lower quadrant abdominal pain with postprandial ab dominal distension and recent change of bowel movement habit of unclear etiology with persistent naus ea and dyspepsia and episodes of vomiting before being admitted to the hospital. It has to be mentioned that the patient has a known history of alcohol abuse. PAST MEDICAL HISTORY: Including but not limited to: 1. Obesity with status post gastric bypass surgery. 2. Chronic lower back pain syndrome. 3. Severe anxiety syndrome. 4. Peptic ulcer disease. 5. Status post tonsillectomy. 6. Periods of anemia before, as per the patient's statement. FAMILY HISTORY: Unknown. SOCIAL HISTORY: Positive for cigarette smoking as well as excessive alcohol intake at times. CURRENT MEDICATIONS: Medication lists were reviewed. ALLERGY TO MEDICATIONS: Unclear. LABORATORY DATA: After being admitted to the hospital, initial blood workup showed hemoglobin low of 9.5 with hematocrit 30.5 with low potassium 3.5, low BUN and low creatinine. The patient had an abdominal ultrasound as well as CAT scan of the abdomen indicative of enlarged fat ty infiltrate of the liver with splenomegaly as well as ascites with questionable small bowel intussu sception versus severe enteritis. Also, it showed evidence of diverticulosis. PHYSICAL EXAMINATION: GENERAL: A 31-year-old female, appeared to be awake, alert, oriented, complaining of abdominal pain; however, patient stated that she had bowel movement since admission. VITAL SIGNS: The patient has a low-grade temperature of 100.1 with pulse of 102, respiratory rate 20 -22 with blood pressure of 116/74. HEENT: Showed pale, dry oral mucoid membrane. Nonicteric sclerae. LUNGS: Few scattered crepitations, decreased air entry at bases. LYMPH NODES: No lymphadenitis or lymphadenopathy. HEART: Positive S1 and S2 with increased rate. ABDOMEN: Soft with mild distention, obese with generalized tenderness. Bowel sounds are excessively hypoactive. No mass or organomegaly. No rebound tenderness or guarding. RECTAL: The patient refused. EXTREMITIES: Lower extremities edematous changes. NEUROLOGIC: No new reported neurological deficit, sensory or motor. It has to be mentioned that the physical examination showed also a small amount of ascites. Peripheral pulses are present. IMPRESSION: 1. Reexacerbation of peptic ulcer disease. 2. Abnormal CAT scan of the abdomen and pelvis, indicative of possible intussusception, less likely, versus enteritis. 3. Diverticulosis by CAT scan of the abdomen and the pelvis. 4. Anemia, most likely secondary to above. 5. Obesity with status post gastric bypass surgery. 6. Severe anxiety syndrome with chronic lower back pain by history. 7. Status post tonsillectomy by history. SUGGESTION: 1. Agree with your plan. 2. Correct any underlying electrolyte imbalance. 3. Reglan IV. 4. Surgical evaluation and reevaluation. 5. Guaiac all the stools daily x 3. 6. Proton pump inhibitors IV. 7. Endoscopic evaluation of the upper GI tract when the patient is more stable clinically. 8. Thiamine IV. 9. Psychiatric evaluation and reevaluation. 10. Lasix p.o. as well as Aldactone p.o. 11. Further recommendations to follow and hepatitis profile to be ordered. Thank you for letting me participate in your patient's case management. Will follow up closely with you. Jeremy Reed MD cc: 14 TT: 12/08/2016 10:53:37 Confirmation # [id number] Dictation # [id number] chiqui
--- NOTE | 2016-12-08 13:45 | PN ---
DATE: 12/08/2016 LOCATION: 371, bed B. This is a 31-year-old female seen and examined on rounds with intermittent periods of abdominal pain, received blood transfusion as reported. No reported actual nausea or vomiting and no reported hemat emesis. The entire chart is reviewed, including but not limited to the most recent lab and radiology study re sults, current and previous medication lists, current and the previous medical events, is discussed w ith the staff at length . Today's labs showed hemoglobin of 9.0, hematocrit 28.1, but normal white blood cells and normal plate let count with low BUN of less than 2 and low creatinine 0.5 with low calcium 7.0. The patient, charles muro, still has elevated total bilirubin 3.9 with AST 141, but normal ALT with alkaline phosphatase 27 8, very low albumin 1.7, indicative of alcoholic liver disease. PHYSICAL EXAMINATION: GENERAL: A 31-year-old female. VITAL SIGNS: Afebrile with pulse of 96, respiratory rate 20-22, blood pressure of 114/70. HEENT: Showed pale, dry oral mucoid membrane. Nonicteric sclerae. LUNGS: Few scattered crepitations, decreased air entry at bases. HEART: Positive S1, S2 with increased rate. ABDOMEN: Obese, distended with generalized tenderness. No mass or organomegaly. No rebound tendern ess or guarding. RECTAL: The patient refused. EXTREMITIES: Lower extremity edematous changes. No clubbing or cyanosis. NEUROLOGIC: No reported new neurological deficit, sensory or motor, or focal deficits. Peripheral pulses are present. IMPRESSION: 1. Status post gastric bypass surgery. 2. Gastritis. 3. Abnormal liver function test indicative of alcoholic liver disease. 4. Jaundice, most likely secondary to hepatocellular injury. 5. Known history of severe anxiety syndrome. 6. Chronic lower back pain by history. 7. Anemia secondary to above, patient may need more blood transfusion. 8. Electrolyte imbalance. 9. Malnutrition with severe hypoalbuminemia. SUGGESTION: 1. Continue current management. 2. IV albumin. 3. Peripheral hyperalimentation. 4. Correct any underlying electrolyte imbalance. 5. One more unit of blood transfusion due to the patient's severe anemia; however, repeat stool for occult blood should be kept in mind and if it tends to be positive, then colonoscopy to be scheduled. 6. Cancer markers including CEA. Thank you for letting me participate in your patient's case management. Further recommendations to caroline adames. Jeremy Reed MD cc: 14 TT: 12/08/2016 13:44:36 Confirmation # [id number] Dictation # [id number] rn
--- NOTE | 2016-12-08 17:22 | CP.PCM.PN ---
Subjective - Date & Time of Evaluation Date of Evaluation: 12/08/16 Time of Evaluation: 14:40 - Subjective Subjective: Pt seen and examined today, denies any abdominal pain, AN/V/D , tremors , tolerating diet without issues s/p EGD- gastritis ( see full report for details ) hgb improved after PRBC TRANSFUSION Objective - Vital Signs/Intake and Output Vital Signs (last 24 hours): Temp Pulse Resp BP Pulse Ox 97.8 F 99 H 20 109/73 95 12/08/16 08:13 12/08/16 08:13 12/08/16 08:13 12/08/16 08:13 12/08/16 08:13 Intake and Output: 12/08/16 12/08/16 06:59 18:59 Intake Total 2044 Balance 2044 - Labs Labs: 12/08/16 07:51 12/08/16 07:51 PT 16.9 SECONDS (9.7-12.2) H 12/03/16 17:56 INR 1.5 12/03/16 17:56 APTT 46 SECONDS (21-34) H 12/03/16 17:56 Assessment and Plan - Assessment and Plan (Free Text) Assessment: 31 Ascites, Hepatosplenomegaly, Jaundice, Alcohol withdrawl s/p paracentesis s/p EGD hgb improved after transfusion - 9 today D/W Dr. Chung, cleared for discharge home today and f/u with Dr. Hunt office in 1 week discharge plan dscussed with patient and at bed lisandro e, who understands and agree with plan Pt instructed to returns to ED if symptoms returns
== END 2016-12-08 15:40 | disposition home or self-care (01) | DRG 750 ==
LOC: C.ER 14:30 → C.3T 12-04 00:11
PROVIDERS: ADMIT Internal Medicine Critical Care Medicine; ATTEND Internal Medicine Critical Care Medicine
PROC: GZ56ZZZ Individual Psychotherapy, Supportive (ICD-10-PCS; 2016-12-04)
PROC: 0DB68ZX Excision of Stomach, Via Natural or Artificial Opening Endoscopic, Diagnostic (ICD-10-PCS; principal; 2016-12-06 10:44)
DX: F10.230 Alcohol dependence with withdrawal, uncomplicated (principal); E87.6 Hypokalemia; R18.8 Other ascites; K74.60 Unspecified cirrhosis of liver; F33.1 Major depressive disorder, recurrent, moderate; E66.01 Morbid (severe) obesity due to excess calories; R16.2 Hepatomegaly with splenomegaly, not elsewhere classified; K27.9 Peptic ulcer, site unspecified, unspecified as acute or chronic, without hemorrhage or perforation; F17.210 Nicotine dependence, cigarettes, uncomplicated; F41.9 Anxiety disorder, unspecified; G89.29 Other chronic pain; K29.70 Gastritis, unspecified, without bleeding; K57.90 Diverticulosis of intestine, part unspecified, without perforation or abscess without bleeding; Z98.84 Bariatric surgery status; D64.9 Anemia, unspecified; Z68.37 Body mass index [BMI] 37.0-37.9, adult; F10.229 Alcohol dependence with intoxication, unspecified; Y90.6 Blood alcohol level of 120-199 mg/100 ml; Z87.891 Personal history of nicotine dependence

== ENCOUNTER 2016-12-17 12:24 | Emergency (ER) | payer OTHER ==
[2016-12-17 12:25] VITALS: BMI 39.6
[2016-12-17 12:46] VITALS: O2SAT 99
--- NOTE | 2016-12-17 14:28 | RAD ---
HISTORY: Cough. Edema. COMPARISON: 12/03/2016. TECHNIQUE: Chest PA and lateral FINDINGS: LUNGS: There is bibasilar atelectasis. No focal consolidation. PLEURA: No significant pleural effusion identified. No pneumothorax apparent. CARDIOVASCULAR: Normal. OSSEOUS STRUCTURES: No significant abnormalities. VISUALIZED UPPER ABDOMEN: Normal. OTHER FINDINGS: None. IMPRESSION: No active pulmonary disease.
[2016-12-17 15:22] LABS: RBC URINE 5 /hpf (0-3); URINE BILIRUBIN NEGATIVE (NEGATIVE); URINE BLOOD 2+ (NEGATIVE); URINE COLOR Amber (YELLOW); URINE GLUCOSE (UA) NORMAL (Normal); URINE KETONE NEGATIVE (NEGATIVE); URINE LEUKOCYTE ESTERASE NEG Leu/uL (Negative); URINE PROTEIN NEGATIVE (NEGATIVE); URINE UROBILINOGEN NORMAL mg/dL (0.2-1.0); WBC URINE 2 /hpf (0-5)
[2016-12-17 15:54] LABS: BASO # 0.1 K/uL (0.0-0.2); BASO % 0.6 % (0.0-2.0); EOS # 0.2 K/uL (0.0-0.7); EOS % 2.1 % (0.0-4.0); HEMATOCRIT 29.4 % (34.0-47.0); LYMPH # 1.1 K/uL (1.0-4.3); LYMPH % 11.4 % (20.0-40.0); MEAN CELL VOLUME 90.5 fL (81.0-99.0); MEAN CORPUSCULAR HEMOGLOBIN 28.7 pg (27.0-31.0); MEAN CORPUSCULAR HGB CONC 31.8 g/dL (33.0-37.0); MEAN PLATELET VOLUME 9.1 fL (7.2-11.7); MONO # 0.7 K/uL (0.0-0.8); MONO % 7.7 % (0.0-10.0); NRBC % 0.1 % (0.0-2.0); RED CELL DISTRIBUTION WIDTH 21.4 % (11.5-14.5); WHITE BLOOD COUNT 9.7 K/uL (4.8-10.8)
[2016-12-17 16:01] LABS: INR 1.8
[2016-12-17 16:03] LABS: CHLORIDE 104 mmol/L (98-107); POTASSIUM 3.9 mmol/L (3.6-5.2); SODIUM 135 mmol/L (132-148)
[2016-12-17 16:05] LABS: AST/SGOT 179 U/L (14-36); BILIRUBIN,TOTAL 4.1 mg/dL (0.2-1.3); CARBON DIOXIDE 26 mmol/L (22-30); GFR AFRICAN-AMERICAN > 60
[2016-12-17 16:06] LABS: ALB/GLOB RATIO 0.5 (1.0-2.1); ALKALINE PHOSPHATASE 201 U/L (38-126); ALT/SGPT 28 U/L (9-52); BLOOD UREA NITROGEN 2 mg/dL (7-17); CALCIUM 7.2 mg/dl (8.6-10.4); GLUCOSE,RANDOM 106 mg/dL (65-105); MAGNESIUM 1.8 mg/dL (1.6-2.3); TOTAL PROTEIN 6.4 g/dL (6.3-8.3)
[2016-12-17 16:07] LABS: ALCOHOL SERUM < 10 mg/dl (0-10)
--- NOTE | 2016-12-17 17:43 | US ---
HISTORY: Ascites, Jaundice, abnormal LFTs COMPARISON: CT abdomen and pelvis with contrast performed 12/03/16 TECHNIQUE: Sonographic evaluation of the abdomen. FINDINGS: LIVER: Measures 25.2 cm in sagittal dimension. Echogenic liver may be seen in setting of hepatic parenchymal disease or fatty infiltration. Nodular hepatic contour. No focal hepatic mass identified. The main portal vein appears patent with normal directional flow. No intrahepatic bile duct dilatation. GALLBLADDER: No gallstones. Mild pericholecystic edema/ gallbladder-wall thickening measuring approximately 6 mm. Negative sonographic Zuniga's sign as assessed by the service center specialist. COMMON BILE DUCT: Measures 3 mm. PANCREAS: Not well visualized. RIGHT KIDNEY: Measures 10.9 x 5.1 x 6.2 cm. No obstructing calculus or hydronephrosis identified. LEFT KIDNEY: Measures 12.0 x 4.7 x 5.3 cm. No obstructing calculus or hydronephrosis identified. SPLEEN: Measures approximately 16.8 cm. AORTA: Limited views appear unremarkable. IVC: Limited views appear unremarkable. OTHER FINDINGS: Small ascites. Left pleural effusion. IMPRESSION: Limited study. Hepatomegaly. Echogenic liver may be seen in setting of hepatic parenchymal disease or fatty infiltration. Nodular hepatic contour consistent with cirrhosis ; correlate clinically. Ascites. Splenomegaly. Mild pericholecystic fluid edema/gallbladder-wall thickening. No gallstones are identified. Negative sonographic Zuniga's sign as assessed by the service center specialist. Correlate clinically. Incidental note is made of left-sided pleural effusion.
--- NOTE | 2016-12-17 18:11 | C.PDOC ---
History Of Present Illness Pt c/o edema. Time Seen by Provider: 12/17/16 13:29 Chief Complaint (Nursing): Abdominal Pain History Per: Patient, Family Onset/Duration Of Symptoms: Days Current Symptoms Are (Timing): Still Present Severity: Moderate Context: Liver failure Location: Generalized Quality: Edema Reports Recently: Hospitalized Additional History Per: Prior Records Past Medical History Reviewed: Historical Data, Nursing Documentation, Vital Signs Vital Signs: Last Vital Signs Temp 98.8 F 12/17/16 12:42 Pulse 98 H 12/17/16 12:42 Resp 18 12/17/16 12:42 BP 118/74 12/17/16 12:42 Pulse Ox 99 12/17/16 12:42 - Medical History PMH: Anemia, Anxiety, Arthritis, Back Problems Other PMH: Liver Cirrhosis Surgical History: Tonsillectomy - [facility] Procedures EXCISION OF STOMACH, ENDO, DIAGN (12/04/16) INDIVIDUAL PSYCHOTHERAPY, SUPPORTIVE (12/04/16) Family History: States: Unknown Family Hx - Social History Hx Tobacco Use: Yes Hx Alcohol Use: Yes (Pt states quit since admission) Hx Substance Use: No - Immunization History Hx Tetanus Toxoid Vaccination: No Hx Influenza Vaccination: Yes Hx Pneumococcal Vaccination: No Review Of Systems Except As Marked, All Systems Reviewed And Found Negative. Constitutional: Negative for: Fever Cardiovascular: Positive for: Edema. Negative for: Chest Pain Respiratory: Positive for: Cough. Negative for: Hemoptysis Gastrointestinal: Positive for: Abdominal Pain. Negative for: Vomiting Genitourinary: Negative for: Dysuria Musculoskeletal: Negative for: Neck Pain Skin: Positive for: Jaundice Neurological: Negative for: Weakness, Numbness, Seizures, Altered Mental Status Physical Exam - Physical Exam Appears: No Acute Distress, Chronically Ill Skin: Warm, Dry Head: Atraumatic, Normacephalic Eye(s): bilateral: PERRL, EOMI Neck: Normal ROM, Supple Cardiovascular: Rhythm Regular Respiratory: Normal Breath Sounds, No Accessory Muscle Use Gastrointestinal/Abdominal: Soft, No Tenderness, Ascites Back: No CVA Tenderness Extremity: Normal ROM, Pedal Edema Neurological/Psych: Oriented x3, Normal Motor, Normal Sensation ED Course And Treatment - Laboratory Results Result Diagrams: 12/17/16 15:56 12/17/16 13:43 Lab Interpretation: No Changes Compared To Prior Results Urine POC: Negative O2 Sat by Pulse Oximetry: 99 Pulse Ox Interpretation: Normal - Radiology CXR: Viewed By Me, Read By Radiologist CXR Interpretation: Yes: No Acute Disease - CT Scan/US Abdominal US Other Rad Studies (CT/US): Read By Radiologist, Radiology Report Reviewed CT/US Interpretation: IMPRESSION: Limited study. Hepatomegaly. Echogenic liver may be seen in setting of hepatic parenchymal disease or fatty infiltration. Nodular hepatic contour consistent with cirrhosis ; correlate clinically. Ascites. Splenomegaly. Mild pericholecystic fluid edema/ gallbladder-wall thickening. No gallstones are identified. Negative sonographic Zuniga's sign as assessed by the arcade technician. Correlate clinically. Incidental note is made of left-sided pleural effusion. Progress - Interventions Interventions:: Observation - Medications Administered Intravenous: Other (Albumin) - Data Reviewed Data Reviewed: Lab, Diagnostic imaging, Old records - Patient Status Patient status: Partially improved - Continuity of Care Discussed patient case with:: Patient, Family-HIPPA compliant, ED Nurse - Patient Plan Patient Plan: Discharge, F/U with PCP, Continue present meds Disposition Counseled Patient/Family Regarding: Studies Performed, Diagnosis, Need For Followup, Rx Given - Disposition Referrals: Hunter Hunt DO [Staff Provider] - Disposition: HOME/ ROUTINE Disposition Time: 18:12 Condition: FAIR Additional Instructions: Avoid any alcohol. Follow up with your doctor for further evaluation and treatment. Return to the ER if you develop worsening of symptoms or if you have any other concerns. Prescriptions: traMADol [Ultram] 50 mg PO TID PRN #15 tab PRN Reason: Pain, Moderate (4-7) Instructions: Cirrhosis (ED) - Clinical Impression Clinical Impression: Edema, Liver cirrhosis
[2016-12-17 18:23] VITALS: BP 109/70; PULSE 103; RESP 16; TEMP 99.1
== END 2016-12-17 18:28 | disposition home or self-care (01) ==
LOC: C.ER 12:24
DX: K74.60 Unspecified cirrhosis of liver (principal); R60.9 Edema, unspecified
CPT/HCPCS: 71020; 76700; 80053; 80320; 81001; 83690; 83735; 83880; 84484; 84703; 85025; 85610; 85730; 87086; 96365; 96375; 99284; C9113; J2765; P9047

== ENCOUNTER 2016-12-29 12:02 | Inpatient (IN) | payer OTHER ==
[2016-12-29 12:03] VITALS: BMI 39.6
--- NOTE | 2016-12-29 13:16 | C.PDOC ---
History Of Present Illness 31 yr old female with PMHx of alcohol abuse (quit 4 weeks ago), presents to the ER with complaints of worsening swelling from feet up to the lower abdomen, including the abdomen. Patient states she has been to this ED several times in last few weeks for similar complaints, reports compliance with medicines. Patient reports of pain due to excessive swelling and occasional vomiting and mild SOB. Patient denies fever, chest pain, nausea, weakness or numbness. Time Seen by Provider: 12/29/16 12:16 Chief Complaint (Nursing): Shortness Of Breath History Per: Patient History/Exam Limitations: no limitations Onset/Duration Of Symptoms: Persistent Past Medical History Reviewed: Historical Data, Nursing Documentation, Vital Signs Vital Signs: Last Vital Signs Temp 98.5 F 12/29/16 18:00 Pulse 95 H 12/29/16 18:00 Resp 18 12/29/16 18:00 BP 114/74 12/29/16 18:00 Pulse Ox 98 12/29/16 18:37 - Medical History PMH: Anemia, Anxiety, Arthritis, Back Problems Surgical History: Tonsillectomy - [facility] Procedures EXCISION OF STOMACH, ENDO, DIAGN (12/04/16) INDIVIDUAL PSYCHOTHERAPY, SUPPORTIVE (12/04/16) Family History: States: No Known Family Hx - Social History Hx Tobacco Use: Yes Hx Alcohol Use: No Hx Substance Use: No - Immunization History Hx Tetanus Toxoid Vaccination: No Hx Influenza Vaccination: Yes Hx Pneumococcal Vaccination: No Review Of Systems Constitutional: Negative for: Fever Respiratory: Positive for: Shortness of Breath (Mild) Gastrointestinal: Positive for: Vomiting (occasional). Negative for: Nausea Musculoskeletal: Positive for: Other ((+) Swelling from feet to lower back, including the abdomen. ) Neurological: Negative for: Weakness, Numbness Physical Exam - Physical Exam Appears: Non-toxic, No Acute Distress, Other ((+) Swollen face. ) Skin: Warm, Dry, Jaundice Head: Atraumatic, Normacephalic Oral Mucosa: Moist Neck: Normal ROM Chest: Symmetrical, No Tenderness Cardiovascular: Rhythm Regular, No Murmur Respiratory: Decreased Breath Sounds (At the bases, bilateral), No Stridor, No Wheezing Gastrointestinal/Abdominal: Soft, Tenderness (Lower abdomen wall tenderness, indurated skin with edema radiating to flanks. ), No Guarding, No Rebound Back: Other ((+) Edema to the lower back ) Extremity: Pedal Edema (+3 bilateral), No Calf Tenderness, Other ((+) +3 pitting edema to both lower extremity, feet to groin. ) Pulses: Left Dorsalis Pedis: Normal, Right Dorsalis Pedis: Normal Neurological/Psych: Oriented x3, Normal Speech, Normal Cognition ED Course And Treatment - Laboratory Results Result Diagrams: 12/29/16 13:37 12/29/16 13:37 ECG: Interpreted By Me, Viewed By Me ECG Rhythm: Sinus Rhythm Rate From EC (BPM) O2 Sat by Pulse Oximetry: 98 (RA) Pulse Ox Interpretation: Normal - Other Rad CXR X-Ray: Viewed By Me, Read By Radiologist Interpretation: HISTORY: Shortness of breath. Anasarca. COMPARISON: 2016. TECHNIQUE: Chest PA and lateral. FINDINGS: LUNGS: Mild venous congestion. Bilateral hilar prominence. Patchy increased markings at the lung bases; left greater than right. Question trace bilateral pleural effusions. PLEURA: As above. CARDIOVASCULAR: Cardiomegaly. OSSEOUS STRUCTURES: No significant abnormalities. VISUALIZED UPPER ABDOMEN: Normal. OTHER FINDINGS: None. IMPRESSION: Mild venous congestion. Bilateral hilar prominence. Patchy increased markings at the lung bases; left greater than right. Question trace bilateral pleural effusions. Medical Decision Making Medical Decision Making: PLAN: * CXR * EKG * CBC * CMP * BNP * Urinalysis * * 354 pm discussed iwth Dr Chung, who covers for Dr Hunt, will admit to his service. * * 5 pm Will admit to Dr Santino Ritchie, discussed with him. Disposition Discussed With : Edis Ritchie Doctor Will See Patient In The: Hospital - Disposition Disposition: HOSPITALIZED Disposition Time: 17:00 Condition: SERIOUS - Clinical Impression Clinical Impression: Ascites, Liver cirrhosis, Jaundice, Anasarca, Hypokalemia - PA / QUALITY LIAISON / Resident Statement MD/DO has reviewed & agrees with the documentation as recorded. - Scribe Statement The provider has reviewed the documentation as recorded by the Scribe Jackelyn Sesay All medical record entries made by the Scribe were at my direction and personally dictated by me. I have reviewed the chart and agree that the record accurately reflects my personal performance of the history, physical exam, medical decision making, and the department course for this patient. I have also personally directed, reviewed, and agree with the discharge instructions and disposition. Decision To Admit - Pt Status Changed To: Hospital Disposition Of: Inpatient - Admit Certification Admit to Inpatient:: After my assessment, the patient will require hospitalization for at least two midnights. This is because of the severity of symptoms shown, intensity of services needed, and/or the medical risk in this patient being treated as an outpatient. - InPatient: Physician Admission Certification: I certify that this patient requires 2 or more midnights of care for the following reason:: for diuresis, stabilization - . Bed Request Type: Regular Patient Diagnosis: Ascites, Liver cirrhosis, Jaundice, Anasarca, Hypokalemia
[2016-12-29 13:46] LABS: BASO % 0.3 % (0.0-2.0); EOS # 0.2 K/uL (0.0-0.7); EOS % 1.7 % (0.0-4.0); HEMOGLOBIN 9.3 g/dL (11.0-16.0); LYMPH # 1.3 K/uL (1.0-4.3); LYMPH % 13.5 % (20.0-40.0); MEAN CELL VOLUME 90.6 fL (81.0-99.0); MEAN CORPUSCULAR HEMOGLOBIN 28.6 pg (27.0-31.0); MEAN CORPUSCULAR HGB CONC 31.6 g/dL (33.0-37.0); MEAN PLATELET VOLUME 8.3 fL (7.2-11.7); MONO # 0.7 K/uL (0.0-0.8); MONO % 7.5 % (0.0-10.0); NEUT # 7.2 K/uL (1.8-7.0); NRBC % 0.1 % (0.0-2.0); RBC 3.27 Mil/uL (3.80-5.20); RED CELL DISTRIBUTION WIDTH 22.3 % (11.5-14.5); WHITE BLOOD COUNT 9.3 K/uL (4.8-10.8)
[2016-12-29 13:57] LABS: ALBUMIN 2.1 g/dL (3.5-5.0)
[2016-12-29 14:00] LABS: ALB/GLOB RATIO 0.5 (1.0-2.1); AST/SGOT 178 U/L (14-36); BLOOD UREA NITROGEN 5 mg/dL (7-17); GFR AFRICAN-AMERICAN > 60; GFR NON-AFRICAN AMERICAN > 60
[2016-12-29 14:01] LABS: ALT/SGPT 32 U/L (9-52); CALCIUM 6.5 mg/dl (8.6-10.4)
[2016-12-29 14:08] LABS: B-TYPE NATRIURETIC PEPTIDE 151 pg/mL (0-450)
[2016-12-29 14:48] LABS: SQUAMOUS EPITHIAL 25 /hpf (0-5); URINE BILIRUBIN NEGATIVE (NEGATIVE); URINE BLOOD 3+ (NEGATIVE); URINE CLARITY Hazy (Clear); URINE COLOR Amber (YELLOW); URINE GLUCOSE (UA) NORMAL (Normal); URINE LEUKOCYTE ESTERASE NEG Leu/uL (Negative); URINE NITRATE NEGATIVE (NEGATIVE); URINE PROTEIN NEGATIVE (NEGATIVE)
[2016-12-29 15:06] LABS: INR 1.7; PROTHROMBIN TIME 19.6 SECONDS (9.7-12.2)
[2016-12-29] MEDS ORDERED: Potassium Chloride 20 mEq ER Tab PO ONE (15:11)
--- NOTE | 2016-12-29 16:22 | RAD ---
HISTORY: Shortness of breath. Anasarca. COMPARISON: 12/17/2016 TECHNIQUE: Chest PA and lateral FINDINGS: LUNGS: Mild venous congestion. Bilateral hilar prominence. Patchy increased markings at the lung bases; left greater than right. Question trace bilateral pleural effusions. PLEURA: As above. CARDIOVASCULAR: Cardiomegaly. OSSEOUS STRUCTURES: No significant abnormalities. VISUALIZED UPPER ABDOMEN: Normal. OTHER FINDINGS: None. IMPRESSION: Mild venous congestion. Bilateral hilar prominence. Patchy increased markings at the lung bases; left greater than right. Question trace bilateral pleural effusions.
[2016-12-30] MEDS ORDERED: Albumin Human 25% (12.5 gm/50 ml) IV ONE (02:09)
[2016-12-30] MEDS ORDERED: Albumin Human 25% (12.5 gm/50 ml) IV SCH (06:00)
--- NOTE | 2016-12-30 08:11 | CP.PCM.CON ---
<Kaitlin Valencia - Last Filed: 12/30/16 09:12> History of Present Illness - History of Present Illness History of Present Illness: Gastroenterology Fellow/PGY5 Consult Note 31 year old female with history of Gastric bypass 7 years ago in [place], [place] and recently diagnosed alcohol cirrhosis 3 weeks ago presenting with vomiting, swelling, and abdominal pain. Patient describes presenting 3 weeks ago for detox and was diagnosed with cirrhosis with endorsed sobriety and medication compliance since discharge. She notes worsening leg swelling and feeling "8 months " with associated productive intractable cough leading to three clear phlegm vomitus episodes yesterday. She notes receiving one unit of pRBC last visit due to anemia. She admits to heavy menses for the last 1.5 months that has never happened before in the past. Notes irregular bowel habits with hard stools and straining due to low fiber diet. Associated heartburn, indigestion, heartburn, and acid reflux. ER visit 12/17/16 with Ultrasound performed showed no gallstones and no ascites noted. EGD performed last admission on 12/06/16 showed LAGB esophagitis, normal bypass anatomy, and Gastritis. No prior colonoscopy. Family- denies colon cancer, liver cancer, stomach cancer Social- prior 1/2-1 pint vodka daily for 7 years, quit 3 weeks ago; denies tobacco or illicit drug use Surgery- 2 C-sections, BTL, tonsillectomy Review of Systems - Review of Systems Review of Systems: A 12-point review of systems negative except for as above Past Patient History - Infectious Disease Hx of Infectious Diseases: None - Past Medical History & Family History Past Medical History?: Yes - Past Social History Smoking Status: Never Smoked - CARDIAC Hx Cardiac Disorders: No - PULMONARY Hx Respiratory Disorders: No - NEUROLOGICAL Hx Neurological Disorder: No - HEENT Hx HEENT Problems: No - RENAL Hx Chronic Kidney Disease: No - ENDOCRINE/METABOLIC Hx Endocrine Disorders: No - HEMATOLOGICAL/ONCOLOGICAL Hx Blood Disorders: Yes Hx Anemia: Yes - INTEGUMENTARY Hx Dermatological Problems: No - MUSCULOSKELETAL/RHEUMATOLOGICAL Hx Musculoskeletal Disorders: No Hx Falls: No - GASTROINTESTINAL Hx Gastrointestinal Disorders: Yes Other/Comment: Liver Cirrhosis. Generalized Edema - GENITOURINARY/GYNECOLOGICAL Hx Genitourinary Disorders: No - PSYCHIATRIC Hx Psychophysiologic Disorder: No Hx Substance Use: No - SURGICAL HISTORY Hx Surgeries: Yes Hx Section: Yes (x2) Hx Tonsillectomy: Yes - ANESTHESIA Hx Anesthesia: Yes Hx Anesthesia Reactions: No Hx Malignant Hyperthermia: No Has any member of the family had a problem w/ anesthesia?: No Meds Allergies/Adverse Reactions: Allergies Allergy/AdvReac Type Severity Reaction Status Date / Time Penicillins Allergy Severe ANAPHYLAXIS Verified 12/03/16 14:41 - Medications Medications: Current Medications Albumin Human (Albumin Human 25% (12.5 Gm/50 Ml)) 12.5 gm IV Q8H [facility] Last Admin: 12/30/16 06:29 Dose: 12.5 gm Enoxaparin Sodium (Lovenox) 30 mg SC DAILY [facility] Folic Acid (Folic Acid) 1 mg PO DAILY [facility] Furosemide (Lasix) 40 mg IVP DAILY [facility] Metolazone (Zaroxolyn) 5 mg PO DAILY [facility] Pantoprazole Sodium (Protonix Ec Tab) 40 mg PO DAILY [facility] Potassium Chloride (K-Dur 20 Meq Er Tab) 40 meq PO DAILY [facility] Last Admin: 12/29/16 15:12 Dose: 40 meq Sertraline HCl (Zoloft) 50 mg PO DAILY [facility] Thiamine HCl (Vitamin B1 Tab) 100 mg PO DAILY [facility] Tramadol HCl (Ultram) 50 mg PO Q6H PRN PRN Reason: Pain, moderate (4-7) Last Admin: 12/30/16 02:51 Dose: 50 mg Trazodone HCl (Desyrel) 50 mg PO HS [facility] Physical Exam - Constitutional Appears: Non-toxic, No Acute Distress - Head Exam Head Exam: ATRAUMATIC, NORMOCEPHALIC - Eye Exam Eye Exam: EOMI, PERRL Pupil Exam: PERRL. absent: Miosis, Mydriatic - ENT Exam ENT Exam: Mucous Membranes Moist, Normal Oropharynx - Neck Exam Neck exam: Positive for: Full Rom, Normal Inspection - Respiratory Exam Respiratory Exam: Clear to Auscultation Bilateral. absent: Rales, Rhonchi, Wheezes - Cardiovascular Exam Cardiovascular Exam: RRR, +S1, +S2. absent: Gallop, Rubs - GI/Abdominal Exam GI & Abdominal Exam: Distended, Normal Bowel Sounds, Organomegaly, Soft, Tenderness. absent: Firm, Guarding, Rebound, Rigid Additional comments: HSM, distended, diffuse tenderness to palpation - Extremities Exam Extremities exam: Positive for: normal inspection Additional comments: 2-3+ B/L LE pitting edema - Neurological Exam Neurological exam: Alert, Oriented x3 - Psychiatric Exam Psychiatric exam: Normal Affect, Normal Mood - Skin Skin Exam: Dry, Intact, Normal Color, Warm Results - Vital Signs Recent Vital Signs: Last Vital Signs Temp 98.1 F 12/30/16 00:15 Pulse 89 12/30/16 00:15 Resp 20 12/30/16 00:15 BP 110/60 12/30/16 00:15 Pulse Ox 96 12/30/16 00:15 - Labs Result Diagrams: 12/29/16 13:37 12/29/16 13:37 Assessment & Plan - Assessment and Plan (Free Text) Assessment: 31 year old female with history of Gastric bypass 7 years ago in [place], [place] and recently diagnosed alcohol cirrhosis 3 weeks ago presenting with vomiting, swelling, and abdominal pain. Active treatment of anasarca and alcoholic cirrhosis with concern for decompenasation. ER visit 12/17/16 with Ultrasound performed showed no gallstones and no ascites noted. EGD performed last admission on 12/06/16 showed LAGB esophagitis, normal bypass anatomy, and Gastritis. No prior colonoscopy. Plan: >MELD 19 >ordered Ultrasound to evaluate for increased ascites -if present, diagnostic and therapeutic paracentesis with fluid analysis >ordered Hepatitis panel and autoimmune workup >continue Lasix >strict I&Os >daily LFTs, INR >low salt diet >supportive care: anti-emetics, PPI >alcohol cessation counselling >will follow clinical course <Jono Kirkland - Last Filed: 12/30/16 11:00> Meds - Medications Medications: Current Medications Enoxaparin Sodium (Lovenox) 30 mg SC DAILY [facility] Last Admin: 12/30/16 09:50 Dose: 30 mg Folic Acid (Folic Acid) 1 mg PO DAILY [facility] Last Admin: 12/30/16 09:47 Dose: 1 mg Furosemide (Lasix) 40 mg IVP DAILY [facility] Albumin Human (Albumin Human 25% (12.5 Gm/50 Ml)) 50 mls @ 100 mls/hr IV Q8H [facility] Metolazone (Zaroxolyn) 5 mg PO DAILY [facility] Ondansetron HCl (Zofran Inj) 4 mg IVP Q8 PRN PRN Reason: GI distress Pantoprazole Sodium (Protonix Ec Tab) 40 mg PO DAILY [facility] Last Admin: 12/30/16 09:47 Dose: 40 mg Potassium Chloride (Potassium Chloride Oral Soln) 40 meq PO DAILY [facility] Sertraline HCl (Zoloft) 50 mg PO DAILY [facility] Last Admin: 12/30/16 09:50 Dose: 50 mg Thiamine HCl (Vitamin B1 Tab) 100 mg PO DAILY [facility] Last Admin: 12/30/16 09:47 Dose: 100 mg Tramadol HCl (Ultram) 50 mg PO Q6H PRN PRN Reason: Pain, moderate (4-7) Last Admin: 12/30/16 09:47 Dose: 50 mg Trazodone HCl (Desyrel) 50 mg PO HS [facility] Results - Vital Signs Recent Vital Signs: Last Vital Signs Temp 98.2 F 12/30/16 09:31 Pulse 92 H 12/30/16 09:31 Resp 20 12/30/16 09:31 BP 106/65 12/30/16 09:31 Pulse Ox 98 12/30/16 09:31 - Labs Result Diagrams: 12/29/16 13:37 12/29/16 13:37 Attending/Attestation - Attestation I have personally seen and examined this patient.: Yes I have fully participated in the care of the patient.: Yes I have reviewed all pertinent clinical information: Yes Notes (Text): 12/30/16 10:58 31 year old female with h/o Obesity s/p RNY Gastric bypass, recently diagnosed with alcoholic cirrhosis admitted with abdominal pain and edema. 1. Alcoholic cirrhosis 2. Ascites Plan: -Recommend US to assess if ascites is significant enough for paracentesis -evaluation for other chronic liver diseases was ordered -low sodium diet -continue diuretics -alcohol abstinence
[2016-12-30] MEDS: Pantoprazole 40 mg EC Tab PO SCH (09:47)
[2016-12-30] MEDS: Enoxaparin 30 mg Syringe SC SCH (09:50)
[2016-12-30] MEDS ORDERED: Potassium Chloride 20 mEq ER Tab PO SCH (10:00)
[2016-12-30] MEDS ORDERED: HYDROmorphone 1 mg/ml ISec IVP PRN (11:05)
[2016-12-30] MEDS: Potassium Chloride 20 mEq/15 ml LIQ UD PO SCH (11:20)
[2016-12-30 11:39] LABS: BASO # 0.1 K/uL (0.0-0.2); BASO % 1.2 % (0.0-2.0); EOS # 0.1 K/uL (0.0-0.7); EOS % 1.4 % (0.0-4.0); HEMOGLOBIN 9.5 g/dL (11.0-16.0); LYMPH # 1.3 K/uL (1.0-4.3); LYMPH % 13.7 % (20.0-40.0); MEAN CELL VOLUME 90.4 fL (81.0-99.0); MEAN CORPUSCULAR HEMOGLOBIN 28.4 pg (27.0-31.0); MEAN CORPUSCULAR HGB CONC 31.4 g/dL (33.0-37.0); MEAN PLATELET VOLUME 8.1 fL (7.2-11.7); MONO # 0.7 K/uL (0.0-0.8); MONO % 6.9 % (0.0-10.0); NEUT # 7.3 K/uL (1.8-7.0); NEUT % 76.8 % (50.0-75.0); RBC 3.34 Mil/uL (3.80-5.20); RED CELL DISTRIBUTION WIDTH 21.6 % (11.5-14.5); WHITE BLOOD COUNT 9.5 K/uL (4.8-10.8)
[2016-12-30 11:43] LABS: INR 1.7; PROTHROMBIN TIME 19.8 SECONDS (9.7-12.2)
[2016-12-30 11:51] LABS: ALBUMIN 2.1 g/dL (3.5-5.0)
[2016-12-30 11:54] LABS: ALB/GLOB RATIO 0.4 (1.0-2.1); ALT/SGPT 37 U/L (9-52); AST/SGOT 201 U/L (14-36); BILIRUBIN,DIRECT 3.3 mg/dL (0.0-0.4); BLOOD UREA NITROGEN 4 mg/dL (7-17); CALCIUM 7.1 mg/dl (8.6-10.4); GFR AFRICAN-AMERICAN > 60; GFR NON-AFRICAN AMERICAN > 60; IRON 33 ug/dL (37-170)
[2016-12-30 11:55] LABS: GAMMA GLUTAMYL TRANSPEPTIDASE 113 U/L (8-78)
[2016-12-30 12:03] LABS: IMMUNOGLOBULIN G 2607.1 mg/dL (700.0-1600.0); IMMUNOGLOBULIN M 371.2 mg/dL (40.0-230.0)
[2016-12-30 12:04] LABS: % IRON SATURATION 16 (20-55); TOTAL IRON BINDING CAPACITY 200 ug/dL (250-450)
[2016-12-30 12:30] LABS: FERRITIN 16.5 ng/mL
[2016-12-30] MEDS: metOLazone 5 MG TAB PO SCH (12:31)
[2016-12-30 12:52] LABS: IMMUNOGLOBULIN A 839.5 mg/dL (70.0-400.0)
[2016-12-30 13:01] LABS: FOLATE 13.9 ng/mL
--- NOTE | 2016-12-30 15:58 | US ---
Abdominal ultrasound History: Cirrhosis. Evaluate for ascites. Comparison: Ultrasound dated 12/17/2016. Technique: Real-time sonography was performed through the abdomen. Findings: Liver: Enlarged. 22.9 centimeters length. Diffuse increased echogenicity of the hepatic parenchymal cortex suggestive for fatty infiltration versus hepatic parenchymal disease. Clinical correlation. Perihepatic ascites noted. Gallbladder: Sludge noted in the gallbladder. Gallbladder wall thickening measuring up to 6.5 millimeters. Associated gallbladder wall edema and trace pericholecystic fluid. Common bile duct measures 5 millimeters, prominent. Visualized portions of pancreas are preserved. Pancreatic tail well visualized. Prominent spleen measuring 13.4 centimeters. Visualized aorta and IVC are preserved. Right kidney: 12.4 x 4.7 x 5.9 centimeters, within normal limits. Left Kidney: 12.0 x 5.5 x 4.4 centimeters, within normal limits. Impression: Enlarged liver with diffuse increased echogenicity of the hepatic parenchymal cortex suggestive for fatty infiltration versus hepatic parenchymal disease. Perihepatic ascites noted. Clinical correlation. Gallbladder sludge with associated prominent wall thickening measuring up to 6.5 millimeters. Associated wall edema and trace pericholecystic fluid. These findings are nonspecific however underlying cholecystitis cannot be excluded. Clinical correlation. Alternatively, correlation with nuclear medicine study may be helpful if clinically indicated. Prominent common bile duct measuring 5 millimeters. Prominent spleen measuring up to 13.4 centimeters. Small amount of abdominal ascites noted.
--- NOTE | 2016-12-30 16:11 | CP.PCM.CON ---
Past Patient History - Infectious Disease Hx of Infectious Diseases: None - Past Medical History & Family History Past Medical History?: Yes - Past Social History Smoking Status: Never Smoked - CARDIAC Hx Cardiac Disorders: No - PULMONARY Hx Respiratory Disorders: No - NEUROLOGICAL Hx Neurological Disorder: No - HEENT Hx HEENT Problems: No - RENAL Hx Chronic Kidney Disease: No - ENDOCRINE/METABOLIC Hx Endocrine Disorders: No - HEMATOLOGICAL/ONCOLOGICAL Hx Blood Disorders: Yes Hx Anemia: Yes - INTEGUMENTARY Hx Dermatological Problems: No - MUSCULOSKELETAL/RHEUMATOLOGICAL Hx Musculoskeletal Disorders: No Hx Falls: No - GASTROINTESTINAL Hx Gastrointestinal Disorders: Yes Other/Comment: Liver Cirrhosis. Generalized Edema - GENITOURINARY/GYNECOLOGICAL Hx Genitourinary Disorders: No - PSYCHIATRIC Hx Psychophysiologic Disorder: No Hx Substance Use: No - SURGICAL HISTORY Hx Surgeries: Yes Hx Section: Yes (x2) Hx Tonsillectomy: Yes - ANESTHESIA Hx Anesthesia: Yes Hx Anesthesia Reactions: No Hx Malignant Hyperthermia: No Has any member of the family had a problem w/ anesthesia?: No Meds Allergies/Adverse Reactions: Allergies Allergy/AdvReac Type Severity Reaction Status Date / Time Penicillins Allergy Severe ANAPHYLAXIS Verified 12/03/16 14:41 - Medications Medications: Current Medications Enoxaparin Sodium (Lovenox) 30 mg SC DAILY [facility] Last Admin: 12/30/16 09:50 Dose: 30 mg Folic Acid (Folic Acid) 1 mg PO DAILY [facility] Last Admin: 12/30/16 09:47 Dose: 1 mg Furosemide (Lasix) 40 mg IVP DAILY [facility] Last Admin: 12/30/16 11:16 Dose: 40 mg Hydromorphone HCl (Dilaudid) 1 mg IVP Q8 PRN PRN Reason: SEVERE PAIN (8-10) Albumin Human (Albumin Human 25% (12.5 Gm/50 Ml)) 50 mls @ 100 mls/hr IV Q8H [facility] Last Admin: 12/30/16 13:35 Dose: 100 mls/hr Metolazone (Zaroxolyn) 5 mg PO DAILY [facility] Last Admin: 12/30/16 12:31 Dose: 5 mg Ondansetron HCl (Zofran Inj) 4 mg IVP Q8 PRN PRN Reason: GI distress Last Admin: 12/30/16 11:14 Dose: 4 mg Pantoprazole Sodium (Protonix Ec Tab) 40 mg PO DAILY [facility] Last Admin: 12/30/16 09:47 Dose: 40 mg Potassium Chloride (Potassium Chloride Oral Soln) 40 meq PO DAILY [facility] Last Admin: 12/30/16 11:20 Dose: 40 meq Sertraline HCl (Zoloft) 50 mg PO DAILY [facility] Last Admin: 12/30/16 09:50 Dose: 50 mg Thiamine HCl (Vitamin B1 Tab) 100 mg PO DAILY [facility] Last Admin: 12/30/16 09:47 Dose: 100 mg Tramadol HCl (Ultram) 50 mg PO Q6H PRN PRN Reason: Pain, moderate (4-7) Last Admin: 12/30/16 09:47 Dose: 50 mg Trazodone HCl (Desyrel) 50 mg PO [facility] Results - Vital Signs Recent Vital Signs: Last Vital Signs Temp 98.2 F 12/30/16 09:31 Pulse 92 H 12/30/16 09:31 Resp 20 12/30/16 09:31 BP 122/73 12/30/16 11:16 Pulse Ox 98 12/30/16 09:31 - Labs Result Diagrams: 12/30/16 11:33 12/30/16 11:33 Labs: Laboratory Results - last 24 hr 12/30/16 12/30/16 12/30/16 11:33 11:33 11:33 WBC 9.5 RBC 3.34 L Hgb 9.5 L Hct 30.2 L MCV 90.4 MCH 28.4 MCHC 31.4 L RDW 21.6 H Plt Count 211 MPV 8.1 Neut % (Auto) 76.8 H Lymph % (Auto) 13.7 L Dare % (Auto) 6.9 Eos % (Auto) 1.4 Baso % (Auto) 1.2 Neut # 7.3 H Lymph # 1.3 Dare # 0.7 Eos # 0.1 Baso # 0.1 PT 19.8 H INR 1.7 Sodium Potassium Chloride Carbon Dioxide Anion Gap BUN Creatinine Est GFR ( Amer) Est GFR (Non-Af Amer) Random Glucose Calcium Iron 33 L TIBC 200 L % Saturation 16 L Ferritin Total Bilirubin Direct Bilirubin GGT AST ALT Alkaline Phosphatase Total Protein Albumin Globulin Albumin/Globulin Ratio Vitamin B12 Folate Alcohol, Quantitative IgG IgA IgM 12/30/16 12/30/16 11:33 11:33 WBC RBC Hgb Hct MCV MCH MCHC RDW Plt Count MPV Neut % (Auto) Lymph % (Auto) Dare % (Auto) Eos % (Auto) Baso % (Auto) Neut # Lymph # Dare # Eos # Baso # PT INR Sodium 135 Potassium 3.0 L Chloride 101 Carbon Dioxide 27 Anion Gap 10 BUN 4 L Creatinine 0.5 L Est GFR ( Amer) > 60 Est GFR (Non-Af Amer) > 60 Random Glucose 96 Calcium 7.1 L Iron TIBC % Saturation Ferritin 16.5 Total Bilirubin 4.3 H Direct Bilirubin 3.3 H GGT 113 H AST 201 H ALT 37 Alkaline Phosphatase 157 H Total Protein 6.7 Albumin 2.1 L Globulin 4.7 H Albumin/Globulin Ratio 0.4 L Vitamin B12 642 Folate 13.9 Alcohol, Quantitative < 10 IgG 2607.1 H IgA 839.5 H IgM 371.2 H
--- NOTE | 2016-12-30 20:59 | CP.PCM.HP ---
Past Patient History - Infectious Disease Hx of Infectious Diseases: None - Past Medical History & Family History Past Medical History?: Yes - Past Social History Smoking Status: Never Smoked - CARDIAC Hx Cardiac Disorders: No - PULMONARY Hx Respiratory Disorders: No - NEUROLOGICAL Hx Neurological Disorder: No - HEENT Hx HEENT Problems: No - RENAL Hx Chronic Kidney Disease: No - ENDOCRINE/METABOLIC Hx Endocrine Disorders: No - HEMATOLOGICAL/ONCOLOGICAL Hx Blood Disorders: Yes Hx Anemia: Yes - INTEGUMENTARY Hx Dermatological Problems: No - MUSCULOSKELETAL/RHEUMATOLOGICAL Hx Musculoskeletal Disorders: No Hx Falls: No - GASTROINTESTINAL Hx Gastrointestinal Disorders: Yes Other/Comment: Liver Cirrhosis. Generalized Edema - GENITOURINARY/GYNECOLOGICAL Hx Genitourinary Disorders: No - PSYCHIATRIC Hx Psychophysiologic Disorder: No Hx Substance Use: No - SURGICAL HISTORY Hx Surgeries: Yes Hx Section: Yes (x2) Hx Tonsillectomy: Yes - ANESTHESIA Hx Anesthesia: Yes Hx Anesthesia Reactions: No Hx Malignant Hyperthermia: No Has any member of the family had a problem w/ anesthesia?: No Meds Allergies/Adverse Reactions: Allergies Allergy/AdvReac Type Severity Reaction Status Date / Time Penicillins Allergy Severe ANAPHYLAXIS Verified 12/03/16 14:41 Physical Exam - Constitutional Appears: Well - Head Exam Head Exam: ATRAUMATIC, NORMAL INSPECTION, NORMOCEPHALIC - Eye Exam Eye Exam: EOMI, Normal appearance, PERRL Pupil Exam: NORMAL ACCOMODATION, PERRL - ENT Exam ENT Exam: Mucous Membranes Moist, Normal Exam - Neck Exam Neck exam: Positive for: Normal Inspection - Respiratory Exam Respiratory Exam: Decreased Breath Sounds - Cardiovascular Exam Cardiovascular Exam: REGULAR RHYTHM, +S1, +S2 - GI/Abdominal Exam GI & Abdominal Exam: Diminished Bowel Sounds, Soft - Rectal Exam Rectal Exam: Deferred Results - Vital Signs Recent Vital Signs: Last Vital Signs Temp 97.8 F 12/30/16 15:00 Pulse 89 12/30/16 15:00 Resp 20 12/30/16 15:00 BP 104/67 12/30/16 15:00 Pulse Ox 99 12/30/16 15:00 - Labs Result Diagrams: 12/30/16 11:33 12/30/16 11:33 Labs: Laboratory Results - last 24 hr 12/30/16 12/30/16 12/30/16 11:33 11:33 11:33 WBC 9.5 RBC 3.34 L Hgb 9.5 L Hct 30.2 L MCV 90.4 MCH 28.4 MCHC 31.4 L RDW 21.6 H Plt Count 211 MPV 8.1 Neut % (Auto) 76.8 H Lymph % (Auto) 13.7 L Wharton % (Auto) 6.9 Eos % (Auto) 1.4 Baso % (Auto) 1.2 Neut # 7.3 H Lymph # 1.3 Wharton # 0.7 Eos # 0.1 Baso # 0.1 PT 19.8 H INR 1.7 Sodium Potassium Chloride Carbon Dioxide Anion Gap BUN Creatinine Est GFR ( Amer) Est GFR (Non-Af Amer) Random Glucose Calcium Iron 33 L TIBC 200 L % Saturation 16 L Ferritin Total Bilirubin Direct Bilirubin GGT AST ALT Alkaline Phosphatase Total Protein Albumin Globulin Albumin/Globulin Ratio Vitamin B12 Folate Alcohol, Quantitative IgG IgA IgM 12/30/16 12/30/16 11:33 11:33 WBC RBC Hgb Hct MCV MCH MCHC RDW Plt Count MPV Neut % (Auto) Lymph % (Auto) Wharton % (Auto) Eos % (Auto) Baso % (Auto) Neut # Lymph # Wharton # Eos # Baso # PT INR Sodium 135 Potassium 3.0 L Chloride 101 Carbon Dioxide 27 Anion Gap 10 BUN 4 L Creatinine 0.5 L Est GFR ( Amer) > 60 Est GFR (Non-Af Amer) > 60 Random Glucose 96 Calcium 7.1 L Iron TIBC % Saturation Ferritin 16.5 Total Bilirubin 4.3 H Direct Bilirubin 3.3 H GGT 113 H AST 201 H ALT 37 Alkaline Phosphatase 157 H Total Protein 6.7 Albumin 2.1 L Globulin 4.7 H Albumin/Globulin Ratio 0.4 L Vitamin B12 642 Folate 13.9 Alcohol, Quantitative < 10 IgG 2607.1 H IgA 839.5 H IgM 371.2 H
[2016-12-30 23:17] LABS: BARBITURATES, UR NEGATIVE (NEGATIVE)
[2016-12-30 23:18] LABS: BENZODIAZEPINES, UR NEGATIVE (NEGATIVE)
[2016-12-30 23:21] LABS: PHENCYCLIDINE, UR NEGATIVE (NEGATIVE)
[2016-12-30 23:22] LABS: OPIATES, UR NEGATIVE (NEGATIVE)
[2016-12-31 06:54] LABS: INR 1.7; PROTHROMBIN TIME 19.7 SECONDS (9.7-12.2)
[2016-12-31 07:23] LABS: ALBUMIN 2.4 g/dL (3.5-5.0)
[2016-12-31 07:26] LABS: ALB/GLOB RATIO 0.5 (1.0-2.1); AST/SGOT 188 U/L (14-36); GFR AFRICAN-AMERICAN > 60; GFR NON-AFRICAN AMERICAN > 60
[2016-12-31 07:27] LABS: ALT/SGPT 31 U/L (9-52); CALCIUM 6.9 mg/dl (8.6-10.4)
[2016-12-31 07:43] LABS: BASO % 0.6 % (0.0-2.0); EOS # 0.1 K/uL (0.0-0.7); HEMOGLOBIN 8.6 g/dL (11.0-16.0); LYMPH % 13.6 % (20.0-40.0); MEAN CELL VOLUME 89.6 fL (81.0-99.0); MEAN CORPUSCULAR HEMOGLOBIN 28.8 pg (27.0-31.0); MEAN CORPUSCULAR HGB CONC 32.1 g/dL (33.0-37.0); MEAN PLATELET VOLUME 8.8 fL (7.2-11.7); MONO # 0.6 K/uL (0.0-0.8); MONO % 8.2 % (0.0-10.0); NEUT # 5.6 K/uL (1.8-7.0); NEUT % 75.6 % (50.0-75.0); NRBC % 0.1 % (0.0-2.0); RED CELL DISTRIBUTION WIDTH 21.4 % (11.5-14.5); WHITE BLOOD COUNT 7.4 K/uL (4.8-10.8)
[2016-12-31 07:50] LABS: BLOOD UREA NITROGEN 2 mg/dL (7-17)
[2016-12-31 08:35] LABS: HEPATITIS B SURFACE AG NEGATIVE (NEGATIVE)
[2016-12-31 08:40] LABS: HEPATITIS A IGM NEGATIVE (NEGATIVE)
[2016-12-31 08:41] LABS: HEPATITIS B CORE AB NEGATIVE (NEGATIVE)
[2016-12-31 08:50] LABS: HEPATITIS C ANTIBODY NEGATIVE (NEGATIVE)
--- NOTE | 2016-12-31 09:12 | CP.PCM.PN ---
Addendum entered and electronically signed by Shawna Hussein DO 12/31/16 11:32: Will add Lactulose daily to help with mild confusion and encourage at least 2 BM daily. Original Note: <Shawna Hussein - Last Filed: 12/31/16 11:21> Subjective - Date & Time of Evaluation Date of Evaluation: 12/31/16 Time of Evaluation: 07:30 - Subjective Subjective: GI Fellow PGY4 Progress Note Pt seen and evaluated at bedside. Pt complaining of diffuse mild abdominal pain , denies fevers, chills, nausea, vomiting, and is tolerating diet. Pt reports abdominal and LE swelling slightly improved since admission. Pt denies alcohol use since 3 weeks ago when she was diagnosed with cirrhosis. Pt reports menorrhagia with current DVT prophylaxis. ROS: A 12pt ROS was obtained and was negative except as mentioned above. Objective - Vital Signs/Intake and Output Vital Signs (last 24 hours): Temp Pulse Resp BP Pulse Ox 98.2 F 79 20 117/75 97 12/30/16 23:30 12/30/16 23:30 12/30/16 23:30 12/30/16 23:30 12/30/16 23:30 Intake and Output: 12/31/16 12/31/16 06:59 18:59 Intake Total 290 Balance 290 - Medications Medications: Current Medications Enoxaparin Sodium (Lovenox) 30 mg SC DAILY [facility] Last Admin: 12/30/16 09:50 Dose: 30 mg Folic Acid (Folic Acid) 1 mg PO DAILY [facility] Last Admin: 12/30/16 09:47 Dose: 1 mg Furosemide (Lasix) 40 mg IVP DAILY [facility] Last Admin: 12/30/16 11:16 Dose: 40 mg Hydromorphone HCl (Dilaudid) 1 mg IVP Q8 PRN PRN Reason: SEVERE PAIN (8-10) Albumin Human (Albumin Human 25% (12.5 Gm/50 Ml)) 50 mls @ 100 mls/hr IV Q8H [facility] Last Admin: 12/31/16 05:14 Dose: 100 mls/hr Potassium Chloride (Potassium Chloride 10 Meq/100 Ml) 10 meq in 100 mls @ 100 mls/hr IVPB ONCE ONE Stop: 12/31/16 09:56 Metolazone (Zaroxolyn) 5 mg PO DAILY [facility] Last Admin: 12/30/16 12:31 Dose: 5 mg Ondansetron HCl (Zofran Inj) 4 mg IVP Q8 PRN PRN Reason: GI distress Last Admin: 12/30/16 11:14 Dose: 4 mg Pantoprazole Sodium (Protonix Ec Tab) 40 mg PO DAILY [facility] Last Admin: 12/30/16 09:47 Dose: 40 mg Potassium Chloride (Potassium Chloride Oral Soln) 40 meq PO DAILY [facility] Last Admin: 12/30/16 11:20 Dose: 40 meq Sertraline HCl (Zoloft) 50 mg PO DAILY [facility] Last Admin: 12/30/16 09:50 Dose: 50 mg Thiamine HCl (Vitamin B1 Tab) 100 mg PO DAILY [facility] Last Admin: 12/30/16 09:47 Dose: 100 mg Tramadol HCl (Ultram) 50 mg PO Q6H PRN PRN Reason: Pain, moderate (4-7) Last Admin: 12/30/16 09:47 Dose: 50 mg Trazodone HCl (Desyrel) 50 mg PO HS [facility] Last Admin: 12/30/16 21:05 Dose: 50 mg - Labs Labs: 12/31/16 06:28 12/31/16 06:28 PT 19.7 SECONDS (9.7-12.2) H 12/31/16 06:28 INR 1.7 12/31/16 06:28 APTT 48 SECONDS (21-34) H 12/29/16 14:29 - Constitutional Appears: Well, No Acute Distress - Head Exam Head Exam: ATRAUMATIC, NORMAL INSPECTION, NORMOCEPHALIC - Eye Exam Eye Exam: EOMI, Scleral icterus Pupil Exam: PERRL - ENT Exam ENT Exam: Mucous Membranes Moist, Normal Exam - Neck Exam Neck Exam: Full ROM - Respiratory Exam Respiratory Exam: Clear to Ausculation Bilateral, NORMAL BREATHING PATTERN - Cardiovascular Exam Cardiovascular Exam: REGULAR RHYTHM, +S1, +S2 - GI/Abdominal Exam GI & Abdominal Exam: Soft, Normal Bowel Sounds Additional comments: obese, mild TTP diffuse - Rectal Exam Rectal Exam: Deferred - Extremities Exam Extremities Exam: Pedal Edema Additional comments: 2+ pitting edema BL LE - Back Exam Back Exam: vertebral tenderness - Neurological Exam Neurological Exam: Alert, Oriented x3 - Psychiatric Exam Psychiatric exam: Normal Affect, Normal Mood - Skin Skin Exam: Dry, Intact, Normal Color Assessment and Plan - Assessment and Plan (Free Text) Assessment: 31 yF with pmhx of gastric bypass, alcohol abuse, recently diagnosed 3wks ago with alcoholic cirrhosis. Pt pw worsening abdominal pain and ascities and LE edema. ER visit 12/17/16 with Ultrasound performed showed no gallstones and no ascites. EGD performed last admission on 12/06/16 showed LAGB esophagitis, normal bypass anatomy, and gastritis. No prior colonoscopy. 1. Alcoholic cirrhosis -decompensated 2. Alcoholic Hepatitis 3. Ascities 4. Hx alcohol abuse Plan: -MELD 22 today from 19, Child [place] Class C-Decompensated Cirrhosis -Alcoholic Hepatitis Maddrey's Discriminant Function for Alcoholic Hepatitis is 38.7-will consider starting prednisolone 40mg daily for 28 days with taper after CT -Ultrasound which shows small ascities, will order CT A/P with IV contrast, repeat US with dupplex -Hepatitis panel negative and autoimmune workup pending -Continue Lasix-recommend lasix 40mg daily and add spironolactone 100mg daily and discontinue metalazone -strict I&Os -daily LFTs, INR -low salt diet, high protein 20g, 2,500 calorie diet -supportive care: anti-emetics, PPI -alcohol cessation counselling -will follow clinical course <Lilia DAVIS,Kenny - Last Filed: 12/31/16 12:17> Objective - Vital Signs/Intake and Output Vital Signs (last 24 hours): Temp Pulse Resp BP Pulse Ox 98.5 F 88 18 106/64 94 L 12/31/16 09:14 12/31/16 09:14 12/31/16 09:14 12/31/16 09:14 12/31/16 09:14 Intake and Output: 12/31/16 12/31/16 06:59 18:59 Intake Total 290 Balance 290 - Medications Medications: Current Medications Enoxaparin Sodium (Lovenox) 30 mg SC DAILY [facility] Last Admin: 12/31/16 11:00 Dose: Not Given Folic Acid (Folic Acid) 1 mg PO DAILY [facility] Last Admin: 12/31/16 09:46 Dose: 1 mg Furosemide (Lasix) 40 mg PO DAILY [facility] Hydromorphone HCl (Dilaudid) 1 mg IVP Q8 PRN PRN Reason: SEVERE PAIN (8-10) Albumin Human (Albumin Human 25% (12.5 Gm/50 Ml)) 50 mls @ 100 mls/hr IV Q8H [facility] Last Admin: 12/31/16 05:14 Dose: 100 mls/hr Lactulose (Enulose) 20 gm PO HS [facility] Ondansetron HCl (Zofran Inj) 4 mg IVP Q8 PRN PRN Reason: GI distress Last Admin: 12/30/16 11:14 Dose: 4 mg Pantoprazole Sodium (Protonix Ec Tab) 40 mg PO DAILY [facility] Last Admin: 12/31/16 09:42 Dose: 40 mg Potassium Chloride (Potassium Chloride Oral Soln) 40 meq PO DAILY [facility] Last Admin: 12/30/16 11:20 Dose: 40 meq Sertraline HCl (Zoloft) 50 mg PO DAILY [facility] Last Admin: 12/31/16 09:43 Dose: 50 mg Spironolactone (Aldactone) 100 mg PO DAILY [facility] Thiamine HCl (Vitamin B1 Tab) 100 mg PO DAILY [facility] Last Admin: 12/31/16 09:49 Dose: 100 mg Tramadol HCl (Ultram) 50 mg PO Q6H PRN PRN Reason: Pain, moderate (4-7) Last Admin: 12/30/16 09:47 Dose: 50 mg Trazodone HCl (Desyrel) 50 mg PO HS [facility] Last Admin: 12/30/16 21:05 Dose: 50 mg - Labs Labs: 12/31/16 06:28 12/31/16 06:28 PT 19.7 SECONDS (9.7-12.2) H 12/31/16 06:28 INR 1.7 12/31/16 06:28 APTT 48 SECONDS (21-34) H 12/29/16 14:29 Attending/Attestation - Attestation I have personally seen and examined this patient.: Yes I have fully participated in the care of the patient.: Yes I have reviewed all pertinent clinical information, including history, physical exam and plan: Yes Notes (Text): 12/31/16 12:12 Patient seen and examined with GI fellows on rounds this am. I agree with assessment and plan with following exceptions and additions. This is a 31 year old female with h/o Obesity s/p RNY Gastric bypass, recently diagnosed with alcoholic cirrhosis admitted with abdominal pain and worsening LE edema on low dose lasix at home. May have component of alcoholic hepatitis with hyperbilirubinemia. DF is 38.7 with mild HE and coagulopathy. Low ascitic volume on palpation- doubt enough for paracentesis. Needs triple phase Ct scan. Last EGD few weeks ago showing no varices and grade B esophagitis. Low sodium and high protein diet, will give lactulose for sleep wake reversal and word finding difficulty and alcohol cessation. Needs close follow up as outpatient.
[2016-12-31] MEDS: Potassium Chloride 20 mEq/15 ml LIQ UD PO SCH ×2 (09:42→15:17)
[2016-12-31] MEDS: metOLazone 5 MG TAB PO SCH (09:42)
[2016-12-31] MEDS: Pantoprazole 40 mg EC Tab PO SCH (09:42)
[2016-12-31] MEDS ORDERED: Potassium Chloride 20 mEq/15 ml LIQ UD PO SCH (10:00)
[2016-12-31] MEDS: Enoxaparin 30 mg Syringe SC SCH (11:00)
[2016-12-31] MEDS ORDERED: Iodixanol 320 MG/ML 100 ML BOTTLE IV ONE (11:11)
--- NOTE | 2016-12-31 12:20 | CT ---
PROCEDURE: CT Abdomen and Pelvis with and without intravenous contrast HISTORY: Abdominal pain, new dx cirrhosis COMPARISON: None. TECHNIQUE: Axial images of the abdomen were obtained in the pre contrast, arterial and portal venous phases of enhancement. Coronal and sagittal reformats were generated. Contrast dose: 100 mL Visipaque 320 Radiation dose: Total exam DLP = 2818.54 mGy-cm. This CT exam was performed using one or more of the following dose reduction techniques: Automated exposure control, adjustment of the mA and/or kV according to patient size, and/or use of iterative reconstruction technique. FINDINGS: LOWER THORAX: Minimal bilateral pleural effusion. Bilateral lower lobe subsegmental atelectasis. LIVER: Hepatomegaly. The liver measures 23.6 cm craniocaudal. No mass. No biliary ductal dilatation. Heterogeneous diminished attenuation consistent with fatty infiltration. GALLBLADDER AND BILE DUCTS: No calcified gallstones. No mural thickening. There is trace pericholecystic fluid, nonspecific, particularly in the setting of mild ascites. PANCREAS: Unremarkable. No gross lesion or ductal dilatation. SPLEEN: Unremarkable. ADRENALS: Unremarkable. No mass. KIDNEYS AND URETERS: Unremarkable. No hydronephrosis. No solid mass. VASCULATURE: Unremarkable. No aortic aneurysm. BOWEL: Status post gastric bypass surgery. No bowel obstruction. Previously identified areas of small bowel intussusception are not evident though the evaluation is limited in the absence of oral contrast. APPENDIX: Not identified. No secondary findings to suggest acute appendicitis. PERITONEUM: Mild generalized ascites. LYMPH NODES: Unremarkable. No enlarged lymph nodes. BLADDER: Nondistended REPRODUCTIVE: Unremarkable uterus. BONES: No acute fracture. OTHER FINDINGS: None. IMPRESSION: Hepatosplenomegaly. Mild generalized ascites. Status post gastric bypass. No hepatic mass identified. No other significant abnormality
--- NOTE | 2016-12-31 13:19 | CP.PCM.CON ---
History of Present Illness - History of Present Illness History of Present Illness: 31 yo female with pmhx of anemia and alcoholic cirrhosis presented to the ED for increased generalized swelling. Pt also presented with vaginal bleeding x 1.5 months. Patient reports that her periods have always been regular and this has never happened to her in the past. Patient reports that her menses in the first two weeks of her period was heavy, it then stopped for two days and returned. Currently patient is soaking through approximately 5-8 pads a day. She also reports that since yesterday she has been passing medium sized clots every time she goes to urinate. Patient reports feeling dizziness, fatigued, productive cough, edema, mild diffuse abdominal pain. Denies headache, fevers, chills, nausea, vomiting, CP, SOB, urinary symptoms, pelvic pain, dyspareunia. OB Hx: G1: 1998 SAB at 12 weeks G2: 2003 Primary C/S at term, complicated by elevated BPs G3: 2005 Repeat C/S at term, no complications [employer] Hx: LMP: end of October? [facility]ad: 10/regular/4-7 days Denies hx of uterine fibroids, ovarian cysts Denies hx of abnormal pap smears Hx of genital herpes Allergies: Penicillin - anaphylaxis Medical Hx: Anemia, alcoholic cirrhosis Medications: Lasix, Zoloft, Thiamine, Folic acid, Trazodone Surgical Hx: Gastric bypass 7 years ago, C/S x 2, tonsillectomy, BTL Social Hx: Receives IV iron infusions for past 1.5 years; drinks 0.5-1 pint vodka/day x 7 years, quit 3 weeks ago; smoked 1ppd for 17 years, denies drug use Family Hx: denies any hx of SALES [employer]VIEW CL[employer]/breast cancer, reports that Aunt had a hysterectomy but unsure why Review of Systems - Constitutional Constitutional: Fatigue. absent: Chills, Fever - EENT Eyes: absent: Change in Vision Ears: absent: Decreased Hearing Nose/Mouth/Throat: absent: Nasal Congestion - Cardiovascular Cardiovascular: Edema. absent: Chest Pain, Dyspnea, Lightheadedness, Palpitations, Syncope - Respiratory Respiratory: Cough. absent: Dyspnea, Pain on Inspiration - Gastrointestinal Gastrointestinal: Abdominal Pain. absent: Constipation, Diarrhea, Loose Stools , Nausea, Vomiting - Genitourinary Genitourinary: absent: Difficulty Urinating, Dysuria - Reproductive: Female Reproductive:Female: Currently Menstual, Menses >/= 8 Days, Heavy Menses. absent: Pelvic Pain, Vaginal Pruritis - Musculoskeletal Musculoskeletal: absent: Arthralgias, Back Pain, Muscle Weakness, Myalgias - Neurological Neurological: Dizziness. absent: Confusion, Headaches, Loss of Vision, Syncope , Weakness - Psychiatric Psychiatric: absent: Anxiety, Depression, Visual Hallucinations, Tactile Hallucinations - Endocrine Endocrine: absent: Fatigue, Palpitations - Hematologic/Lymphatic Hematologic: absent: Easy Bleeding, Easy Bruising, Lymphadenopathy Past Patient History - Infectious Disease Hx of Infectious Diseases: None - Past Medical History & Family History Past Medical History?: Yes - Past Social History Smoking Status: Never Smoked - CARDIAC Hx Cardiac Disorders: No - PULMONARY Hx Respiratory Disorders: No - NEUROLOGICAL Hx Neurological Disorder: No - HEENT Hx HEENT Problems: No - RENAL Hx Chronic Kidney Disease: No - ENDOCRINE/METABOLIC Hx Endocrine Disorders: No - HEMATOLOGICAL/ONCOLOGICAL Hx Blood Disorders: Yes Hx Anemia: Yes - INTEGUMENTARY Hx Dermatological Problems: No - MUSCULOSKELETAL/RHEUMATOLOGICAL Hx Musculoskeletal Disorders: No Hx Falls: No - GASTROINTESTINAL Hx Gastrointestinal Disorders: Yes Other/Comment: Liver Cirrhosis. Generalized Edema - GENITOURINARY/GYNECOLOGICAL Hx Genitourinary Disorders: No - PSYCHIATRIC Hx Psychophysiologic Disorder: No Hx Substance Use: No - SURGICAL HISTORY Hx Surgeries: Yes Hx Section: Yes (x2) Hx Tonsillectomy: Yes - ANESTHESIA Hx Anesthesia: Yes Hx Anesthesia Reactions: No Hx Malignant Hyperthermia: No Has any member of the family had a problem w/ anesthesia?: No Meds Allergies/Adverse Reactions: Allergies Allergy/AdvReac Type Severity Reaction Status Date / Time Penicillins Allergy Severe ANAPHYLAXIS Verified 12/03/16 14:41 - Medications Medications: Current Medications Enoxaparin Sodium (Lovenox) 30 mg SC DAILY [facility] Last Admin: 12/31/16 11:00 Dose: Not Given Folic Acid (Folic Acid) 1 mg PO DAILY [facility] Last Admin: 12/31/16 09:46 Dose: 1 mg Furosemide (Lasix) 40 mg PO DAILY [facility] Hydromorphone HCl (Dilaudid) 1 mg IVP Q8 PRN PRN Reason: SEVERE PAIN (8-10) Albumin Human (Albumin Human 25% (12.5 Gm/50 Ml)) 50 mls @ 100 mls/hr IV Q8H [facility] Last Admin: 12/31/16 05:14 Dose: 100 mls/hr Lactulose (Enulose) 20 gm PO [facility] Ondansetron HCl (Zofran Inj) 4 mg IVP Q8 PRN PRN Reason: GI distress Last Admin: 12/30/16 11:14 Dose: 4 mg Pantoprazole Sodium (Protonix Ec Tab) 40 mg PO DAILY [facility] Last Admin: 12/31/16 09:42 Dose: 40 mg Potassium Chloride (Potassium Chloride Oral Soln) 40 meq PO DAILY [facility] Last Admin: 12/30/16 11:20 Dose: 40 meq Sertraline HCl (Zoloft) 50 mg PO DAILY [facility] Last Admin: 12/31/16 09:43 Dose: 50 mg Spironolactone (Aldactone) 100 mg PO DAILY [facility] Last Admin: 12/31/16 12:13 Dose: 100 mg Thiamine HCl (Vitamin B1 Tab) 100 mg PO DAILY [facility] Last Admin: 12/31/16 09:49 Dose: 100 mg Tramadol HCl (Ultram) 50 mg PO Q6H PRN PRN Reason: Pain, moderate (4-7) Last Admin: 12/30/16 09:47 Dose: 50 mg Trazodone HCl (Desyrel) 50 mg PO HS [facility] Last Admin: 12/30/16 21:05 Dose: 50 mg Physical Exam - Constitutional Appears: Well, No Acute Distress - Head Exam Head Exam: ATRAUMATIC, NORMAL INSPECTION - Eye Exam Eye Exam: EOMI, Scleral icterus - ENT Exam ENT Exam: Mucous Membranes Moist - Neck Exam Neck exam: Positive for: Full Rom - Respiratory Exam Respiratory Exam: Clear to Auscultation Bilateral, NORMAL BREATHING PATTERN - Cardiovascular Exam Cardiovascular Exam: REGULAR RHYTHM, +S1, +S2 - GI/Abdominal Exam GI & Abdominal Exam: Normal Bowel Sounds, Soft. absent: Guarding, Rebound, Rigid Additional comments: Mild diffuse abdominal tenderness - Exam Speculum exam: Vaginal Bleeding. absent: Cervical Discharge, Laceration Bimanual exam: NORMAL BIMANUAL EXAM. absent: Adnexal, Cervical Motion Tendernes , Uterine Enlargement Additional comments: Minimal blood in vaginal vault - Extremities Exam Extremities exam: Positive for: pedal edema, pedal pulses present - Back Exam Back exam: NORMAL INSPECTION - Neurological Exam Neurological exam: Alert, Oriented x3 - Psychiatric Exam Psychiatric exam: Normal Affect, Normal Mood - Skin Skin Exam: Normal Color, Warm Results - Vital Signs Recent Vital Signs: Last Vital Signs Temp 98.5 F 12/31/16 09:14 Pulse 88 12/31/16 09:14 Resp 18 12/31/16 09:14 BP 106/64 12/31/16 09:14 Pulse Ox 94 L 12/31/16 09:14 - Labs Result Diagrams: 12/31/16 06:28 12/31/16 06:28 Labs: Laboratory Results - last 24 hr 12/30/16 12/30/16 12/30/16 11:33 11:33 23:02 WBC RBC Hgb Hct MCV MCH MCHC RDW Plt Count MPV Neut % (Auto) Lymph % (Auto) Coal % (Auto) Eos % (Auto) Baso % (Auto) Neut # Lymph # Coal # Eos # Baso # PT INR Sodium Potassium Chloride Carbon Dioxide Anion Gap BUN Creatinine Est GFR ( Amer) Est GFR (Non-Af Amer) Random Glucose Calcium Total Bilirubin AST ALT Alkaline Phosphatase Total Protein Albumin Globulin Albumin/Globulin Ratio Urine Opiates Screen Negative Urine Methadone Screen Negative Ur Barbiturates Screen Negative Ur Phencyclidine Scrn Negative Ur Amphetamines Screen Negative U Benzodiazepines Scrn Negative U Oth Cocaine Metabols Negative U Cannabinoids Screen Negative BREN 6 Profile Negative Hepatitis A IgM Ab Negative Hep Bs Antigen Negative Hep B Core IgM Ab Negative Hepatitis C Antibody Negative 12/31/16 12/31/16 12/31/16 06:28 06:28 06:28 WBC 7.4 RBC 3.00 L Hgb 8.6 L Hct 26.9 L MCV 89.6 MCH 28.8 MCHC 32.1 L RDW 21.4 H Plt Count 188 MPV 8.8 Neut % (Auto) 75.6 H Lymph % (Auto) 13.6 L Coal % (Auto) 8.2 Eos % (Auto) 2.0 Baso % (Auto) 0.6 Neut # 5.6 Lymph # 1.0 Coal # 0.6 Eos # 0.1 Baso # 0.0 PT 19.7 H INR 1.7 Sodium 131 L Potassium 3.0 L Chloride 95 L Carbon Dioxide 30 Anion Gap 9 L BUN 2 L Creatinine 0.5 L Est GFR ( Amer) > 60 Est GFR (Non-Af Amer) > 60 Random Glucose 96 Calcium 6.9 L Total Bilirubin 4.2 H AST 188 H ALT 31 Alkaline Phosphatase 144 H Total Protein 6.9 Albumin 2.4 L Globulin 4.5 H Albumin/Globulin Ratio 0.5 L Urine Opiates Screen Urine Methadone Screen Ur Barbiturates Screen Ur Phencyclidine Scrn Ur Amphetamines Screen U Benzodiazepines Scrn U Oth Cocaine Metabols U Cannabinoids Screen BREN 6 Profile Hepatitis A IgM Ab Hep Bs Antigen Hep B Core IgM Ab Hepatitis C Antibody Assessment & Plan (1) Menorrhagia Assessment and Plan: 1. Stable, afebrile 2. F/U am CBC 3. Strict Pad count 4. Will f/u Transvaginal US final read 5. Patient is not a candidate for medical management at time due to liver disease 6. No plan for D+C at time as patient will need to be medically optimized 7. Will continue to monitor Status: Acute (2) Liver cirrhosis Assessment and Plan: 1. Menorrhagia likely 2/2 to liver disease 2. Medical management per primary team Status: Acute
--- NOTE | 2016-12-31 13:32 | CARD ---
APPROVED REPORT EKG Measurement Heart [id number] <Conclusion> Normal sinus rhythm Cannot rule out Anterior infarct, age undetermined Prolonged QT Abnormal ECG
--- NOTE | 2016-12-31 15:12 | CP.PCM.PN ---
Subjective - Date & Time of Evaluation Date of Evaluation: 12/31/16 Time of Evaluation: 12:20 - Subjective Subjective: clinically same Objective - Vital Signs/Intake and Output Vital Signs (last 24 hours): Temp Pulse Resp BP Pulse Ox 98.5 F 88 18 106/64 94 L 12/31/16 09:14 12/31/16 09:14 12/31/16 09:14 12/31/16 09:14 12/31/16 09:14 Intake and Output: 12/31/16 12/31/16 06:59 18:59 Intake Total 290 Balance 290 - Medications Medications: Current Medications Enoxaparin Sodium (Lovenox) 30 mg SC DAILY [facility] Last Admin: 12/31/16 11:00 Dose: Not Given Folic Acid (Folic Acid) 1 mg PO DAILY [facility] Last Admin: 12/31/16 09:46 Dose: 1 mg Furosemide (Lasix) 40 mg PO DAILY [facility] Hydromorphone HCl (Dilaudid) 1 mg IVP Q8 PRN PRN Reason: SEVERE PAIN (8-10) Albumin Human (Albumin Human 25% (12.5 Gm/50 Ml)) 50 mls @ 100 mls/hr IV Q8H [facility] Last Admin: 12/31/16 05:14 Dose: 100 mls/hr Lactulose (Enulose) 20 gm PO BID [facility] Ondansetron HCl (Zofran Inj) 4 mg IVP Q8 PRN PRN Reason: GI distress Last Admin: 12/30/16 11:14 Dose: 4 mg Pantoprazole Sodium (Protonix Ec Tab) 40 mg PO DAILY [facility] Last Admin: 12/31/16 09:42 Dose: 40 mg Potassium Chloride (Potassium Chloride Oral Soln) 40 meq PO DAILY [facility] Last Admin: 12/30/16 11:20 Dose: 40 meq Sertraline HCl (Zoloft) 50 mg PO DAILY [facility] Last Admin: 12/31/16 09:43 Dose: 50 mg Spironolactone (Aldactone) 100 mg PO DAILY [facility] Last Admin: 12/31/16 12:13 Dose: 100 mg Thiamine HCl (Vitamin B1 Tab) 100 mg PO DAILY [facility] Last Admin: 12/31/16 09:49 Dose: 100 mg Tramadol HCl (Ultram) 50 mg PO Q6H PRN PRN Reason: Pain, moderate (4-7) Last Admin: 12/30/16 09:47 Dose: 50 mg Trazodone HCl (Desyrel) 50 mg PO HS [facility] Last Admin: 12/30/16 21:05 Dose: 50 mg - Labs Labs: 12/31/16 06:28 12/31/16 06:28 PT 19.7 SECONDS (9.7-12.2) H 12/31/16 06:28 INR 1.7 12/31/16 06:28 APTT 48 SECONDS (21-34) H 12/29/16 14:29 - Constitutional Appears: Well - Head Exam Head Exam: ATRAUMATIC, NORMAL INSPECTION, NORMOCEPHALIC - Eye Exam Eye Exam: EOMI, Normal appearance, PERRL Pupil Exam: NORMAL ACCOMODATION, PERRL - ENT Exam ENT Exam: Mucous Membranes Moist, Normal Exam - Neck Exam Neck Exam: Full ROM, Normal Inspection. absent: Lymphadenopathy - Respiratory Exam Respiratory Exam: Decreased Breath Sounds - Cardiovascular Exam Cardiovascular Exam: REGULAR RHYTHM, +S1, +S2 - GI/Abdominal Exam GI & Abdominal Exam: Soft, Diminished Bowel Sounds - Rectal Exam Rectal Exam: Deferred
--- NOTE | 2016-12-31 16:28 | US ---
PROCEDURE: Portal blood flow assessment HISTORY: Cirrhosis, evaulate blood flow COMPARISON: December 30, 2016. . TECHNIQUE: Real-time ultrasound scan of the hepatic veins and portal venous system included veins with color flow, spectral waveform analysis. FINDINGS: Hepatomegaly, cirrhotic appearing liver. Hepatopedal blood flow. Fatty infiltration manifest ultrasonographically as increased Patent hepatic veins. No evidence of portal vein or hepatic vein thrombosis. IMPRESSION: Hepato pedal blood flow. Patent hepatic veins. Hepatomegaly/cirrhotic appearing liver with fatty infiltration.
--- NOTE | 2016-12-31 16:31 | US ---
HISTORY: Menorrhagia. LMP October 29, 2016. Ongoing bleeding. COMPARISON: None available. TECHNIQUE: Transabdominal, transvaginal. Real -time technique with 2D, duplex and color Doppler. FINDINGS: UTERUS: Measures 4.6 x 5 x 11.4 cm. Normal in size and appearance. No fibroid or other mass lesion seen. ENDOMETRIUM: Measures 11.5 mm in diameter. Tiny, less than 2 mm cystic structure within the endometrial echo complex. No pole or yolk sac identified. Assessment of gestational age based on sac measurement below threshold for calculation. CERVIX: No cervical abnormality identified. RIGHT OVARY: Measures 2.5 x 2.7 x 2.9 cm. No solid mass. Normal flow. LEFT OVARY: Measures 2.3 x 3.2 x 3.1 cm. No solid mass. Normal flow. FREE FLUID: Incompletely visualized intra-abdominal and pelvic ascites. OTHER FINDINGS: None. IMPRESSION: Tiny cystic structure less than 2 mm. Otherwise unremarkable uterus, endometrial echo complex and adnexa. Incompletely visualized abdominal pelvic ascites.
[2016-12-31 19:57] LABS: ALBUMIN 2.6 g/dL (3.5-5.0)
[2016-12-31 20:00] LABS: ALB/GLOB RATIO 0.6 (1.0-2.1); AST/SGOT 229 U/L (14-36); GFR AFRICAN-AMERICAN > 60; GFR NON-AFRICAN AMERICAN > 60
[2016-12-31 20:01] LABS: ALT/SGPT 43 U/L (9-52); BLOOD UREA NITROGEN < 2 mg/dL (7-17); CALCIUM 7.9 mg/dl (8.6-10.4)
[2016-12-31] MEDS ORDERED: Potassium Chloride 20 mEq ER Tab PO STA (20:07)
[2017-01-01 06:45] LABS: ALBUMIN 2.2 g/dL (3.5-5.0)
[2017-01-01 06:47] LABS: GFR AFRICAN-AMERICAN > 60; GFR NON-AFRICAN AMERICAN > 60
[2017-01-01 06:48] LABS: ALB/GLOB RATIO 0.6 (1.0-2.1); ALT/SGPT 39 U/L (9-52); AST/SGOT 184 U/L (14-36); BLOOD UREA NITROGEN < 2 mg/dL (7-17); CALCIUM 7.8 mg/dl (8.6-10.4)
[2017-01-01 07:42] LABS: FOLATE 16.3 ng/mL
[2017-01-01] MEDS: Pantoprazole 40 mg EC Tab PO SCH (09:16)
[2017-01-01] MEDS: Potassium Chloride 20 mEq/15 ml LIQ UD PO SCH (09:17)
--- NOTE | 2017-01-01 09:36 | CP.PCM.PN ---
<Shawna Hussein - Last Filed: 01/01/17 09:46> Subjective - Date & Time of Evaluation Date of Evaluation: 01/01/17 Time of Evaluation: 07:00 - Subjective Subjective: GI Fellow PGY4 Pt seen and examined at bedside, says she is feeling a little better and tolerating her diet. Slight improvement in LE edema and abdominal pain. Pt only drank half of her lactulose yesterday, pt was educated on the importance of lactulose and at least 2 bm daily to help with mentation. Pt debies fevers, chills, N/V but complaining of continued vaginal bleeding. ROS: A 12pt ROS was obtained and was negative except as mentioned above. Objective - Vital Signs/Intake and Output Vital Signs (last 24 hours): Temp Pulse Resp BP Pulse Ox 98.1 F 88 18 126/72 99 01/01/17 07:15 01/01/17 07:15 01/01/17 07:15 01/01/17 09:16 01/01/17 07:15 Intake and Output: 01/01/17 01/01/17 06:59 18:59 Intake Total 50 Balance 50 - Medications Medications: Current Medications Enoxaparin Sodium (Lovenox) 30 mg SC DAILY [facility] Last Admin: 12/31/16 11:00 Dose: Not Given Folic Acid (Folic Acid) 1 mg PO DAILY [facility] Last Admin: 01/01/17 09:16 Dose: 1 mg Furosemide (Lasix) 40 mg PO DAILY [facility] Last Admin: 01/01/17 09:16 Dose: 40 mg Hydromorphone HCl (Dilaudid) 1 mg IVP Q8 PRN PRN Reason: SEVERE PAIN (8-10) Albumin Human (Albumin Human 25% (12.5 Gm/50 Ml)) 50 mls @ 100 mls/hr IV Q8H [facility] Last Admin: 01/01/17 05:58 Dose: 100 mls/hr Lactulose (Enulose) 20 gm PO BID [facility] Last Admin: 01/01/17 09:23 Dose: 20 gm Ondansetron HCl (Zofran Inj) 4 mg IVP Q8 PRN PRN Reason: GI distress Last Admin: 12/30/16 11:14 Dose: 4 mg Pantoprazole Sodium (Protonix Ec Tab) 40 mg PO DAILY [facility] Last Admin: 01/01/17 09:16 Dose: 40 mg Potassium Chloride (Potassium Chloride Oral Soln) 40 meq PO DAILY [facility] Last Admin: 01/01/17 09:17 Dose: 40 meq Sertraline HCl (Zoloft) 50 mg PO DAILY [facility] Last Admin: 01/01/17 09:16 Dose: 50 mg Spironolactone (Aldactone) 100 mg PO DAILY [facility] Last Admin: 01/01/17 09:18 Dose: 100 mg Thiamine HCl (Vitamin B1 Tab) 100 mg PO DAILY [facility] Last Admin: 01/01/17 09:16 Dose: 100 mg Tramadol HCl (Ultram) 50 mg PO Q6H PRN PRN Reason: Pain, moderate (4-7) Last Admin: 12/30/16 09:47 Dose: 50 mg Trazodone HCl (Desyrel) 50 mg PO HS [facility] Last Admin: 12/31/16 22:19 Dose: 50 mg - Labs Labs: 12/31/16 06:28 01/01/17 06:11 PT 19.7 SECONDS (9.7-12.2) H 12/31/16 06:28 INR 1.7 12/31/16 06:28 APTT 48 SECONDS (21-34) H 12/29/16 14:29 - Constitutional Appears: Well, Non-toxic - Head Exam Head Exam: NORMAL INSPECTION, NORMOCEPHALIC - Eye Exam Eye Exam: EOMI, PERRL, Scleral icterus Pupil Exam: PERRL - ENT Exam ENT Exam: Mucous Membranes Moist, Normal Exam, Normal External Ear Exam - Neck Exam Neck Exam: Normal Inspection - Respiratory Exam Respiratory Exam: Clear to Ausculation Bilateral, NORMAL BREATHING PATTERN. absent: Wheezes - Cardiovascular Exam Cardiovascular Exam: REGULAR RHYTHM, RRR, +S1, +S2 - GI/Abdominal Exam GI & Abdominal Exam: Soft, Normal Bowel Sounds. absent: Guarding, Rigid Additional comments: obese, no ascities appreciated - Extremities Exam Extremities Exam: Full ROM Additional comments: 2+ pitting BL LE edema - Back Exam Back Exam: Full ROM, NORMAL INSPECTION - Neurological Exam Neurological Exam: Alert, Awake, Oriented x3 - Psychiatric Exam Psychiatric exam: Normal Affect, Normal Mood - Skin Skin Exam: Intact, Normal Color, Warm Additional comments: mild jaundice Assessment and Plan - Assessment and Plan (Free Text) Assessment: 31 yF with pmx of gastric bypass, alcohol abuse, recently diagnosed 3wks ago with alcoholic cirrhosis. Pt pw worsening abdominal pain and ascities and LE edema. ER visit 12/17/16 with Ultrasound performed showed no gallstones and no ascites. EGD performed last admission on 12/06/16 showed LAGB esophagitis, normal bypass anatomy, and gastritis. No prior colonoscopy. 1. Alcoholic cirrhosis -decompensated 2. Alcoholic Hepatitis 3. Ascities 4. Hx alcohol abuse Plan: -MELD 20 today from 22 and 19, Child [place] Class C-Decompensated Cirrhosis -Alcoholic Hepatitis Maddrey's Discriminant Function for Alcoholic Hepatitis is 38.2-no plan for prednisolone at this time since TBili is trending down -Ultrasound which shows small ascities and patent portal and hepatic vein, CT A/ P with IV contrast with no hepatic lesions -Hepatitis panel negative and autoimmune panel negative -Continue Lasix-recommend lasix 40mg daily and add spironolactone 100mg daily -Continue Lactulose and titrate to 2-3 BM daily -low salt diet, high protein 20g, 2,500 calorie diet -supportive care: anti-emetics, PPI -alcohol cessation counselling -discussed about the importance of outpt followup for liver cirrhosis and alcohol cessation <Temo Lombardo - Last Filed: 01/01/17 10:56> Objective - Vital Signs/Intake and Output Vital Signs (last 24 hours): Temp Pulse Resp BP Pulse Ox 98.1 F 88 18 126/72 99 01/01/17 07:15 01/01/17 07:15 01/01/17 07:15 01/01/17 09:16 01/01/17 07:15 Intake and Output: 01/01/17 01/01/17 06:59 18:59 Intake Total 50 Balance 50 - Medications Medications: Current Medications Enoxaparin Sodium (Lovenox) 30 mg SC DAILY [facility] Last Admin: 12/31/16 11:00 Dose: Not Given Folic Acid (Folic Acid) 1 mg PO DAILY [facility] Last Admin: 01/01/17 09:16 Dose: 1 mg Furosemide (Lasix) 40 mg PO DAILY [facility] Last Admin: 01/01/17 09:16 Dose: 40 mg Hydromorphone HCl (Dilaudid) 1 mg IVP Q8 PRN PRN Reason: SEVERE PAIN (8-10) Albumin Human (Albumin Human 25% (12.5 Gm/50 Ml)) 50 mls @ 100 mls/hr IV Q8H [facility] Last Admin: 01/01/17 05:58 Dose: 100 mls/hr Lactulose (Enulose) 20 gm PO BID [facility] Last Admin: 01/01/17 09:23 Dose: 20 gm Ondansetron HCl (Zofran Inj) 4 mg IVP Q8 PRN PRN Reason: GI distress Last Admin: 12/30/16 11:14 Dose: 4 mg Pantoprazole Sodium (Protonix Ec Tab) 40 mg PO DAILY [facility] Last Admin: 01/01/17 09:16 Dose: 40 mg Potassium Chloride (Potassium Chloride Oral Soln) 40 meq PO DAILY [facility] Last Admin: 01/01/17 09:17 Dose: 40 meq Sertraline HCl (Zoloft) 50 mg PO DAILY [facility] Last Admin: 01/01/17 09:16 Dose: 50 mg Spironolactone (Aldactone) 100 mg PO DAILY [facility] Last Admin: 01/01/17 09:18 Dose: 100 mg Thiamine HCl (Vitamin B1 Tab) 100 mg PO DAILY [facility] Last Admin: 01/01/17 09:16 Dose: 100 mg Tramadol HCl (Ultram) 50 mg PO Q6H PRN PRN Reason: Pain, moderate (4-7) Last Admin: 12/30/16 09:47 Dose: 50 mg Trazodone HCl (Desyrel) 50 mg PO HS [facility] Last Admin: 12/31/16 22:19 Dose: 50 mg - Labs Labs: 12/31/16 06:28 01/01/17 06:11 PT 19.7 SECONDS (9.7-12.2) H 12/31/16 06:28 INR 1.7 12/31/16 06:28 APTT 48 SECONDS (21-34) H 12/29/16 14:29 Attending/Attestation - Attestation I have personally seen and examined this patient.: Yes I have fully participated in the care of the patient.: Yes I have reviewed all pertinent clinical information, including history, physical exam and plan: Yes Notes (Text): 01/01/17 10:50 I have seen and examined patient with GI fellow. No acute events overnight, she complains of mild RLE swelling. She denies abdominal pain, nausea, vomiting , diarrhea, fever/chills. She is tolerating PO diet without difficulty. Review of vitals from today are normal. ETOH related decompensated cirrhosis Acute alcoholic hepatitis Obesity, s/p gastric bypass - Low sodium diet as tolerated - Patient restarted on diuretic regimen, continue to monitor electrolytes - Continue with lactulose therapy, titrate so patient has 2-3 bowel movements daily - Will defer therapy with steroids given elevated DF due to downtrending bilirubin, likely subdued medication benefit at this point - Awaiting additional autoimmune panel - ETOH cessation counseling. Triple phase liver imaging did not show presence of hepatic mass lesion. - No ongoing GI issues, patient requires additional outpatient follow up. Will sign off case, please reconsult as necessary, thank you.
--- NOTE | 2017-01-01 09:39 | CP.PCM.PN ---
Subjective - Date & Time of Evaluation Date of Evaluation: 01/01/17 Time of Evaluation: 10:45 - Subjective Subjective: PGY 2 Medicine Note- Dr. Keri Ritchie's service Pt seen and examined in no acute distress. Patient's diet improving, Patient denies subjective fevers or chills, nausea, vomiting, diarrhea, chest pain, hadaches or palpitations at this time. Objective - Vital Signs/Intake and Output Vital Signs (last 24 hours): Temp Pulse Resp BP Pulse Ox 98.1 F 88 18 126/72 99 01/01/17 07:15 01/01/17 07:15 01/01/17 07:15 01/01/17 09:16 01/01/17 07:15 Intake and Output: 01/01/17 01/01/17 06:59 18:59 Intake Total 50 Balance 50 - Medications Medications: Current Medications Enoxaparin Sodium (Lovenox) 30 mg SC DAILY [facility] Last Admin: 12/31/16 11:00 Dose: Not Given Folic Acid (Folic Acid) 1 mg PO DAILY [facility] Last Admin: 01/01/17 09:16 Dose: 1 mg Furosemide (Lasix) 40 mg PO DAILY [facility] Last Admin: 01/01/17 09:16 Dose: 40 mg Hydromorphone HCl (Dilaudid) 1 mg IVP Q8 PRN PRN Reason: SEVERE PAIN (8-10) Albumin Human (Albumin Human 25% (12.5 Gm/50 Ml)) 50 mls @ 100 mls/hr IV Q8H [facility] Last Admin: 01/01/17 05:58 Dose: 100 mls/hr Lactulose (Enulose) 20 gm PO BID [facility] Last Admin: 01/01/17 09:23 Dose: 20 gm Ondansetron HCl (Zofran Inj) 4 mg IVP Q8 PRN PRN Reason: GI distress Last Admin: 12/30/16 11:14 Dose: 4 mg Pantoprazole Sodium (Protonix Ec Tab) 40 mg PO DAILY [facility] Last Admin: 01/01/17 09:16 Dose: 40 mg Potassium Chloride (Potassium Chloride Oral Soln) 40 meq PO DAILY [facility] Last Admin: 01/01/17 09:17 Dose: 40 meq Sertraline HCl (Zoloft) 50 mg PO DAILY [facility] Last Admin: 01/01/17 09:16 Dose: 50 mg Spironolactone (Aldactone) 100 mg PO DAILY [facility] Last Admin: 01/01/17 09:18 Dose: 100 mg Thiamine HCl (Vitamin B1 Tab) 100 mg PO DAILY [facility] Last Admin: 01/01/17 09:16 Dose: 100 mg Tramadol HCl (Ultram) 50 mg PO Q6H PRN PRN Reason: Pain, moderate (4-7) Last Admin: 12/30/16 09:47 Dose: 50 mg Trazodone HCl (Desyrel) 50 mg PO [facility] Last Admin: 12/31/16 22:19 Dose: 50 mg - Labs Labs: 12/31/16 06:28 01/01/17 06:11 PT 19.7 SECONDS (9.7-12.2) H 12/31/16 06:28 INR 1.7 12/31/16 06:28 APTT 48 SECONDS (21-34) H 12/29/16 14:29 - Constitutional Appears: Non-toxic, No Acute Distress - Head Exam Head Exam: ATRAUMATIC, NORMAL INSPECTION, NORMOCEPHALIC - Eye Exam Eye Exam: EOMI, Normal appearance, PERRL Pupil Exam: NORMAL ACCOMODATION - ENT Exam ENT Exam: Mucous Membranes Moist - Neck Exam Neck Exam: Full ROM - Respiratory Exam Respiratory Exam: NORMAL BREATHING PATTERN. absent: Wheezes - Cardiovascular Exam Cardiovascular Exam: +S1, +S2 - GI/Abdominal Exam GI & Abdominal Exam: Soft, Normal Bowel Sounds - Extremities Exam Extremities Exam: Full ROM, Normal Capillary Refill, Pedal Edema - Back Exam Back Exam: Full ROM - Neurological Exam Neurological Exam: Alert, Awake, CN II-XII Intact, Oriented x3 - Psychiatric Exam Psychiatric exam: Flat Affect - Skin Skin Exam: Dry, Normal Color, Warm Assessment and Plan - Assessment and Plan (Free Text) Assessment: Cirrhosis with ascites Ultrasound which shows small ascites and patent portal and hepatic vein, CT A/P with IV contrast with no hepatic lesions Cont Low Sodium diet GI recommendations noted. Hepatitis Hepatitis panel negative and autoimmune panel negative Triple phase liver imaging did not show presence of hepatic mass lesion. Patient requires additional outpatient follow up per GI Vaginal bleeding F/U transvaginal U/S- tiny cystic structure less than 2 mm; otherwise unremarkable uterus; incompletely visualized abdominal pelvic ascites Patient not candidate for medical management due to ongoing hepatic sequelae OBGYN evaluation- F/U recommendations Hx of Alcohol Abuse Counseled on cessation and risks of continued use. Prophylactic Measure Protonix 40 mg PO daily Lovenox 30SC daily Management per Dr. Keri Ritchie Patient will likely be discharged in the AM.
--- NOTE | 2017-01-01 11:43 | CP.PCM.PN ---
Subjective - Date & Time of Evaluation Date of Evaluation: 01/01/17 Time of Evaluation: 12:40 - Subjective Subjective: clinically same Objective - Vital Signs/Intake and Output Vital Signs (last 24 hours): Temp Pulse Resp BP Pulse Ox 98.1 F 88 18 126/72 99 01/01/17 07:15 01/01/17 07:15 01/01/17 07:15 01/01/17 09:16 01/01/17 07:15 Intake and Output: 01/01/17 01/01/17 06:59 18:59 Intake Total 50 Balance 50 - Medications Medications: Current Medications Enoxaparin Sodium (Lovenox) 30 mg SC DAILY [facility] Last Admin: 12/31/16 11:00 Dose: Not Given Folic Acid (Folic Acid) 1 mg PO DAILY [facility] Last Admin: 01/01/17 09:16 Dose: 1 mg Furosemide (Lasix) 40 mg PO DAILY [facility] Last Admin: 01/01/17 09:16 Dose: 40 mg Hydromorphone HCl (Dilaudid) 1 mg IVP Q8 PRN PRN Reason: SEVERE PAIN (8-10) Albumin Human (Albumin Human 25% (12.5 Gm/50 Ml)) 50 mls @ 100 mls/hr IV Q8H [facility] Last Admin: 01/01/17 05:58 Dose: 100 mls/hr Lactulose (Enulose) 20 gm PO BID [facility] Last Admin: 01/01/17 09:23 Dose: 20 gm Ondansetron HCl (Zofran Inj) 4 mg IVP Q8 PRN PRN Reason: GI distress Last Admin: 12/30/16 11:14 Dose: 4 mg Pantoprazole Sodium (Protonix Ec Tab) 40 mg PO DAILY [facility] Last Admin: 01/01/17 09:16 Dose: 40 mg Potassium Chloride (Potassium Chloride Oral Soln) 40 meq PO DAILY [facility] Last Admin: 01/01/17 09:17 Dose: 40 meq Sertraline HCl (Zoloft) 50 mg PO DAILY [facility] Last Admin: 01/01/17 09:16 Dose: 50 mg Spironolactone (Aldactone) 100 mg PO DAILY [facility] Last Admin: 01/01/17 09:18 Dose: 100 mg Thiamine HCl (Vitamin B1 Tab) 100 mg PO DAILY [facility] Last Admin: 01/01/17 09:16 Dose: 100 mg Tramadol HCl (Ultram) 50 mg PO Q6H PRN PRN Reason: Pain, moderate (4-7) Last Admin: 12/30/16 09:47 Dose: 50 mg Trazodone HCl (Desyrel) 50 mg PO HS [facility] Last Admin: 12/31/16 22:19 Dose: 50 mg - Labs Labs: 12/31/16 06:28 01/01/17 06:11 PT 19.7 SECONDS (9.7-12.2) H 12/31/16 06:28 INR 1.7 12/31/16 06:28 APTT 48 SECONDS (21-34) H 12/29/16 14:29 - Constitutional Appears: Well - Head Exam Head Exam: ATRAUMATIC, NORMAL INSPECTION, NORMOCEPHALIC - Eye Exam Eye Exam: EOMI, Normal appearance, PERRL Pupil Exam: NORMAL ACCOMODATION, PERRL - ENT Exam ENT Exam: Mucous Membranes Moist, Normal Exam - Neck Exam Neck Exam: Full ROM, Normal Inspection. absent: Lymphadenopathy - Respiratory Exam Respiratory Exam: Decreased Breath Sounds - Cardiovascular Exam Cardiovascular Exam: REGULAR RHYTHM, +S1, +S2 - GI/Abdominal Exam GI & Abdominal Exam: Soft, Diminished Bowel Sounds - Rectal Exam Rectal Exam: Deferred
[2017-01-01 11:53] LABS: BASO % 0.4 % (0.0-2.0); EOS # 0.1 K/uL (0.0-0.7); EOS % 1.5 % (0.0-4.0); HEMOGLOBIN 8.3 g/dL (11.0-16.0); LYMPH # 1.1 K/uL (1.0-4.3); LYMPH % 12.9 % (20.0-40.0); MEAN CELL VOLUME 88.7 fL (81.0-99.0); MEAN CORPUSCULAR HGB CONC 32.6 g/dL (33.0-37.0); MEAN PLATELET VOLUME 7.9 fL (7.2-11.7); MONO # 0.8 K/uL (0.0-0.8); MONO % 9.4 % (0.0-10.0); NEUT # 6.5 K/uL (1.8-7.0); NEUT % 75.8 % (50.0-75.0); RBC 2.86 Mil/uL (3.80-5.20); RED CELL DISTRIBUTION WIDTH 21.4 % (11.5-14.5); WHITE BLOOD COUNT 8.6 K/uL (4.8-10.8)
--- NOTE | 2017-01-01 14:33 | CP.PCM.PN ---
Subjective - Date & Time of Evaluation Date of Evaluation: 01/01/17 Time of Evaluation: 14:33 Objective - Vital Signs/Intake and Output Vital Signs (last 24 hours): Temp Pulse Resp BP Pulse Ox 98.1 F 88 18 126/72 99 01/01/17 07:15 01/01/17 07:15 01/01/17 07:15 01/01/17 09:16 01/01/17 07:15 Intake and Output: 01/01/17 01/01/17 06:59 18:59 Intake Total 50 Balance 50 - Medications Medications: Current Medications Enoxaparin Sodium (Lovenox) 30 mg SC DAILY [facility] Last Admin: 12/31/16 11:00 Dose: Not Given Folic Acid (Folic Acid) 1 mg PO DAILY [facility] Last Admin: 01/01/17 09:16 Dose: 1 mg Furosemide (Lasix) 40 mg PO DAILY [facility] Last Admin: 01/01/17 09:16 Dose: 40 mg Hydromorphone HCl (Dilaudid) 1 mg IVP Q8 PRN PRN Reason: SEVERE PAIN (8-10) Albumin Human (Albumin Human 25% (12.5 Gm/50 Ml)) 50 mls @ 100 mls/hr IV Q8H [facility] Last Admin: 01/01/17 13:35 Dose: 100 mls/hr Lactulose (Enulose) 20 gm PO BID [facility] Last Admin: 01/01/17 09:23 Dose: 20 gm Ondansetron HCl (Zofran Inj) 4 mg IVP Q8 PRN PRN Reason: GI distress Last Admin: 12/30/16 11:14 Dose: 4 mg Pantoprazole Sodium (Protonix Ec Tab) 40 mg PO DAILY [facility] Last Admin: 01/01/17 09:16 Dose: 40 mg Potassium Chloride (Potassium Chloride Oral Soln) 40 meq PO DAILY [facility] Last Admin: 01/01/17 09:17 Dose: 40 meq Sertraline HCl (Zoloft) 50 mg PO DAILY [facility] Last Admin: 01/01/17 09:16 Dose: 50 mg Spironolactone (Aldactone) 100 mg PO DAILY [facility] Last Admin: 01/01/17 09:18 Dose: 100 mg Thiamine HCl (Vitamin B1 Tab) 100 mg PO DAILY [facility] Last Admin: 01/01/17 09:16 Dose: 100 mg Tramadol HCl (Ultram) 50 mg PO Q6H PRN PRN Reason: Pain, moderate (4-7) Last Admin: 12/30/16 09:47 Dose: 50 mg Trazodone HCl (Desyrel) 50 mg PO HS [facility] Last Admin: 12/31/16 22:19 Dose: 50 mg - Labs Labs: 01/01/17 11:43 01/01/17 06:11 PT 19.7 SECONDS (9.7-12.2) H 12/31/16 06:28 INR 1.7 12/31/16 06:28 APTT 48 SECONDS (21-34) H 12/29/16 14:29
[2017-01-01] MEDS ORDERED: Potassium Chloride 20 mEq ER Tab PO STA (22:23)
[2017-01-02 06:38] LABS: BASO % 0.5 % (0.0-2.0); EOS # 0.1 K/uL (0.0-0.7); EOS % 1.7 % (0.0-4.0); HEMOGLOBIN 7.9 g/dL (11.0-16.0); LYMPH # 1.2 K/uL (1.0-4.3); LYMPH % 15.3 % (20.0-40.0); MEAN CELL VOLUME 89.4 fL (81.0-99.0); MEAN CORPUSCULAR HEMOGLOBIN 28.9 pg (27.0-31.0); MEAN CORPUSCULAR HGB CONC 32.3 g/dL (33.0-37.0); MEAN PLATELET VOLUME 8.6 fL (7.2-11.7); MONO # 0.7 K/uL (0.0-0.8); MONO % 9.1 % (0.0-10.0); NEUT # 5.6 K/uL (1.8-7.0); NEUT % 73.4 % (50.0-75.0); NRBC % 0.1 % (0.0-2.0); RBC 2.74 Mil/uL (3.80-5.20); RED CELL DISTRIBUTION WIDTH 20.9 % (11.5-14.5); WHITE BLOOD COUNT 7.6 K/uL (4.8-10.8)
[2017-01-02 06:48] LABS: ALBUMIN 2.7 g/dL (3.5-5.0)
[2017-01-02 06:51] LABS: ALB/GLOB RATIO 0.6 (1.0-2.1); AST/SGOT 186 U/L (14-36); GFR AFRICAN-AMERICAN > 60; GFR NON-AFRICAN AMERICAN > 60
[2017-01-02 06:52] LABS: ALT/SGPT 32 U/L (9-52); CALCIUM 8.1 mg/dl (8.6-10.4); MAGNESIUM 1.5 mg/dL (1.6-2.3)
[2017-01-02 06:56] LABS: BLOOD UREA NITROGEN < 2 mg/dL (7-17)
[2017-01-02 09:02] VITALS: RESP 18
[2017-01-02] MEDS: Pantoprazole 40 mg EC Tab PO SCH (09:44)
[2017-01-02] MEDS: Potassium Chloride 20 mEq/15 ml LIQ UD PO SCH (09:45)
[2017-01-02] MEDS ORDERED: Magnesium Oxide 400 mg Tab UD PO STA (10:08)
--- NOTE | 2017-01-02 13:43 | CP.PCM.PN ---
Subjective - Date & Time of Evaluation Date of Evaluation: 01/02/17 Time of Evaluation: 13:41 - Subjective Subjective: PGY2 progress note for Dr. Ritchie 31 year old female with past medical history of ETOH abuse with liver cirrhosis was admitted for diffuse swelling. Pt is seen and examined at bedside. No acute events overnight. Patient denies having any CP, SOB, abd pain, N/V/D/C, f /c. Patient is tolerating diet. 12 point ROS are negative except for the above mentioned. Objective - Vital Signs/Intake and Output Vital Signs (last 24 hours): Temp Pulse Resp BP Pulse Ox 98.6 F 89 18 120/73 95 01/02/17 09:02 01/02/17 09:18 01/02/17 09:02 01/02/17 09:44 01/02/17 09:02 Intake and Output: 01/02/17 01/02/17 06:59 18:59 Intake Total 290 Balance 290 - Medications Medications: Current Medications Enoxaparin Sodium (Lovenox) 30 mg SC DAILY [facility] Last Admin: 12/31/16 11:00 Dose: Not Given Folic Acid (Folic Acid) 1 mg PO DAILY [facility] Last Admin: 01/02/17 09:45 Dose: 1 mg Furosemide (Lasix) 40 mg PO DAILY [facility] Last Admin: 01/02/17 09:44 Dose: 40 mg Hydromorphone HCl (Dilaudid) 1 mg IVP Q8 PRN PRN Reason: SEVERE PAIN (8-10) Albumin Human (Albumin Human 25% (12.5 Gm/50 Ml)) 50 mls @ 100 mls/hr IV Q8H [facility] Last Admin: 01/02/17 05:45 Dose: 100 mls/hr Lactulose (Enulose) 20 gm PO BID [facility] Last Admin: 01/02/17 09:45 Dose: 20 gm Ondansetron HCl (Zofran Inj) 4 mg IVP Q8 PRN PRN Reason: GI distress Last Admin: 12/30/16 11:14 Dose: 4 mg Pantoprazole Sodium (Protonix Ec Tab) 40 mg PO DAILY [facility] Last Admin: 01/02/17 09:44 Dose: 40 mg Potassium Chloride (Potassium Chloride Oral Soln) 40 meq PO DAILY [facility] Last Admin: 01/02/17 09:45 Dose: 40 meq Sertraline HCl (Zoloft) 50 mg PO DAILY [facility] Last Admin: 01/02/17 09:44 Dose: 50 mg Spironolactone (Aldactone) 100 mg PO DAILY [facility] Last Admin: 01/02/17 09:44 Dose: 100 mg Thiamine HCl (Vitamin B1 Tab) 100 mg PO DAILY [facility] Last Admin: 01/02/17 10:54 Dose: 100 mg Tramadol HCl (Ultram) 50 mg PO Q6H PRN PRN Reason: Pain, moderate (4-7) Last Admin: 12/30/16 09:47 Dose: 50 mg Trazodone HCl (Desyrel) 50 mg PO HS [facility] Last Admin: 01/01/17 21:34 Dose: 50 mg - Labs Labs: 01/02/17 06:08 01/02/17 06:08 PT 19.7 SECONDS (9.7-12.2) H 12/31/16 06:28 INR 1.7 12/31/16 06:28 APTT 48 SECONDS (21-34) H 12/29/16 14:29 - Constitutional Appears: Non-toxic, No Acute Distress - Head Exam Head Exam: ATRAUMATIC - ENT Exam ENT Exam: Mucous Membranes Moist - Respiratory Exam Respiratory Exam: Clear to Ausculation Bilateral, NORMAL BREATHING PATTERN. absent: Accessory Muscle Use, Rales, Rhonchi, Wheezes, Respiratory Distress - Cardiovascular Exam Cardiovascular Exam: REGULAR RHYTHM, +S1, +S2. absent: Gallop, Rubs, Murmur - GI/Abdominal Exam GI & Abdominal Exam: Soft, Normal Bowel Sounds. absent: Distended, Firm, Guarding, Rigid, Tenderness, Organomegaly - Extremities Exam Extremities Exam: Pedal Edema (1+ edema B/L). absent: Tenderness - Neurological Exam Neurological Exam: Alert, Awake, Oriented x3 - Psychiatric Exam Psychiatric exam: Normal Affect, Normal Mood - Skin Skin Exam: Dry, Intact, Normal Color, Warm Assessment and Plan - Assessment and Plan (Free Text) Assessment: Assessment: Cirrhosis with ascites Ultrasound which shows small ascites and patent portal and hepatic vein, CT A/P with IV contrast with no hepatic lesions Cont Low Sodium diet, high protein Patient is on lactulose with goal of 2-3 BMs daily Lasixs and spirnolactone daily Hepatitis Hepatitis panel negative and autoimmune panel negative Triple phase liver imaging did not show presence of hepatic mass lesion. Patient requires additional outpatient follow up per GI Vaginal bleeding F/U transvaginal U/S- tiny cystic structure less than 2 mm; otherwise unremarkable uterus; incompletely visualized abdominal pelvic ascites Patient not candidate for medical management due to ongoing hepatic sequelae OBGYN evaluation- F/U recommendations Hx of Alcohol Abuse Counseled on cessation and risks of continued use. Shortness of breath Symptoms have improved CXR on admission showed mild venous congestion Prophylactic Measure Protonix 40 mg PO daily Lovenox 30SC daily Orders and management per Dr. Ritchie Patient is cleared for discharge home as per Dr. Ritchie. Patient is to follow up with PMD within 1 week of discharge. Patient is to follow up with GI specialist upon discharge. Patient is discharged with the following mediations: Folic acid 1 mg po qd, Lasix 40 mg po qd, Lactulose 20 mg po TID, Protonix 40 mg po qd, Zoloft 50 mg po qd 5 tabs, Aldactone 100 mg po qd, Thiamine 100 mg po qd, Trazadone 50 mg po HS 5 tabs, Multivitamin po qd. Patient was counselled on ETOH abuse. Patient is to maintain a low salt diet, high in protein. If symptoms worsen, please return to ED.
--- NOTE | 2017-01-02 14:18 | CP.PCM.PN ---
Subjective - Date & Time of Evaluation Date of Evaluation: 01/02/17 Time of Evaluation: 14:18 Objective - Vital Signs/Intake and Output Vital Signs (last 24 hours): Temp Pulse Resp BP Pulse Ox 98.6 F 89 18 120/73 95 01/02/17 09:02 01/02/17 09:18 01/02/17 09:02 01/02/17 09:44 01/02/17 09:02 Intake and Output: 01/02/17 01/02/17 06:59 18:59 Intake Total 290 Balance 290 - Medications Medications: Current Medications Enoxaparin Sodium (Lovenox) 30 mg SC DAILY [facility] Last Admin: 12/31/16 11:00 Dose: Not Given Folic Acid (Folic Acid) 1 mg PO DAILY [facility] Last Admin: 01/02/17 09:45 Dose: 1 mg Furosemide (Lasix) 40 mg PO DAILY [facility] Last Admin: 01/02/17 09:44 Dose: 40 mg Hydromorphone HCl (Dilaudid) 1 mg IVP Q8 PRN PRN Reason: SEVERE PAIN (8-10) Albumin Human (Albumin Human 25% (12.5 Gm/50 Ml)) 50 mls @ 100 mls/hr IV Q8H [facility] Last Admin: 01/02/17 05:45 Dose: 100 mls/hr Lactulose (Enulose) 20 gm PO BID [facility] Last Admin: 01/02/17 09:45 Dose: 20 gm Ondansetron HCl (Zofran Inj) 4 mg IVP Q8 PRN PRN Reason: GI distress Last Admin: 12/30/16 11:14 Dose: 4 mg Pantoprazole Sodium (Protonix Ec Tab) 40 mg PO DAILY [facility] Last Admin: 01/02/17 09:44 Dose: 40 mg Potassium Chloride (Potassium Chloride Oral Soln) 40 meq PO DAILY [facility] Last Admin: 01/02/17 09:45 Dose: 40 meq Sertraline HCl (Zoloft) 50 mg PO DAILY [facility] Last Admin: 01/02/17 09:44 Dose: 50 mg Spironolactone (Aldactone) 100 mg PO DAILY [facility] Last Admin: 01/02/17 09:44 Dose: 100 mg Thiamine HCl (Vitamin B1 Tab) 100 mg PO DAILY [facility] Last Admin: 01/02/17 10:54 Dose: 100 mg Tramadol HCl (Ultram) 50 mg PO Q6H PRN PRN Reason: Pain, moderate (4-7) Last Admin: 12/30/16 09:47 Dose: 50 mg Trazodone HCl (Desyrel) 50 mg PO HS [facility] Last Admin: 01/01/17 21:34 Dose: 50 mg - Labs Labs: 01/02/17 06:08 01/02/17 06:08 PT 19.7 SECONDS (9.7-12.2) H 12/31/16 06:28 INR 1.7 12/31/16 06:28 APTT 48 SECONDS (21-34) H 12/29/16 14:29
--- NOTE | 2017-01-02 15:47 | CP.PCM.PN ---
Subjective - Date & Time of Evaluation Date of Evaluation: 01/02/17 Time of Evaluation: 13:00 - Subjective Subjective: Patient seen and examined at bedside. Per nursing no acute events overnight. Patient is doing well, no complaints at this time. Patient reports that the vaginal bleeding has lessened but she is still passing clots. Tolerating diet. Denies headache, dizziness, CP, SOB, abdominal pain, urinary symptoms. Objective - Vital Signs/Intake and Output Vital Signs (last 24 hours): Temp Pulse Resp BP Pulse Ox 98.6 F 89 18 120/73 95 01/02/17 09:02 01/02/17 09:18 01/02/17 09:02 01/02/17 09:44 01/02/17 09:02 Intake and Output: 01/02/17 01/02/17 06:59 18:59 Intake Total 290 Balance 290 - Medications Medications: Current Medications Enoxaparin Sodium (Lovenox) 30 mg SC DAILY [facility] Last Admin: 12/31/16 11:00 Dose: Not Given Folic Acid (Folic Acid) 1 mg PO DAILY [facility] Last Admin: 01/02/17 09:45 Dose: 1 mg Furosemide (Lasix) 40 mg PO DAILY [facility] Last Admin: 01/02/17 09:44 Dose: 40 mg Hydromorphone HCl (Dilaudid) 1 mg IVP Q8 PRN PRN Reason: SEVERE PAIN (8-10) Albumin Human (Albumin Human 25% (12.5 Gm/50 Ml)) 50 mls @ 100 mls/hr IV Q8H [facility] Last Admin: 01/02/17 14:45 Dose: 100 mls/hr Lactulose (Enulose) 20 gm PO BID [facility] Last Admin: 01/02/17 09:45 Dose: 20 gm Ondansetron HCl (Zofran Inj) 4 mg IVP Q8 PRN PRN Reason: GI distress Last Admin: 12/30/16 11:14 Dose: 4 mg Pantoprazole Sodium (Protonix Ec Tab) 40 mg PO DAILY [facility] Last Admin: 01/02/17 09:44 Dose: 40 mg Potassium Chloride (Potassium Chloride Oral Soln) 40 meq PO DAILY [facility] Last Admin: 01/02/17 09:45 Dose: 40 meq Sertraline HCl (Zoloft) 50 mg PO DAILY [facility] Last Admin: 01/02/17 09:44 Dose: 50 mg Spironolactone (Aldactone) 100 mg PO DAILY [facility] Last Admin: 01/02/17 09:44 Dose: 100 mg Thiamine HCl (Vitamin B1 Tab) 100 mg PO DAILY [facility] Last Admin: 01/02/17 10:54 Dose: 100 mg Tramadol HCl (Ultram) 50 mg PO Q6H PRN PRN Reason: Pain, moderate (4-7) Last Admin: 12/30/16 09:47 Dose: 50 mg Trazodone HCl (Desyrel) 50 mg PO HS [facility] Last Admin: 01/01/17 21:34 Dose: 50 mg - Labs Labs: 01/02/17 06:08 01/02/17 06:08 PT 19.7 SECONDS (9.7-12.2) H 12/31/16 06:28 INR 1.7 12/31/16 06:28 APTT 48 SECONDS (21-34) H 12/29/16 14:29 - Constitutional Appears: Non-toxic, No Acute Distress - Head Exam Head Exam: ATRAUMATIC, NORMAL INSPECTION - Eye Exam Eye Exam: EOMI, Scleral icterus Pupil Exam: NORMAL ACCOMODATION - ENT Exam ENT Exam: Mucous Membranes Moist - Neck Exam Neck Exam: Full ROM - Respiratory Exam Respiratory Exam: Clear to Ausculation Bilateral, NORMAL BREATHING PATTERN - Cardiovascular Exam Cardiovascular Exam: REGULAR RHYTHM, +S1, +S2 - GI/Abdominal Exam GI & Abdominal Exam: Soft, Normal Bowel Sounds - Extremities Exam Extremities Exam: Pedal Edema. absent: Calf Tenderness - Back Exam Back Exam: NORMAL INSPECTION - Neurological Exam Neurological Exam: Alert, Awake, Oriented x3 - Psychiatric Exam Psychiatric exam: Normal Affect, Normal Mood - Skin Skin Exam: Normal Color, Warm Assessment and Plan (1) Menorrhagia Assessment & Plan: 1. Stable, afebrile 2. Hgb 8.3 -> 7.9, asymptomatic 3. Menorrhagia likely 2/2 to liver cirrhosis 4. Medical management contraindicated as patient has liver disease 5. Patient will need to follow up with [facility] as an outpatient 6. No intervention at this time, will sign off Status: Acute (2) Liver cirrhosis Assessment & Plan: 1. Medical management per primary team Status: Acute
[2017-01-02 16:52] VITALS: BP 117/71; PULSE 93; TEMP 98.5; O2SAT 99
== END 2017-01-02 16:50 | disposition home or self-care (01) | DRG 202 ==
LOC: C.ER 12:02 → C.9E 16:00 → C.6T 23:18
PROVIDERS: ADMIT Internal Medicine Nephrology; ATTEND Internal Medicine Nephrology
DX: K70.31 Alcoholic cirrhosis of liver with ascites (principal); K70.11 Alcoholic hepatitis with ascites; D68.9 Coagulation defect, unspecified; E87.6 Hypokalemia; D64.9 Anemia, unspecified; K21.0 Gastro-esophageal reflux disease with esophagitis; K29.70 Gastritis, unspecified, without bleeding; N92.0 Excessive and frequent menstruation with regular cycle; F10.21 Alcohol dependence, in remission; F17.210 Nicotine dependence, cigarettes, uncomplicated; E66.9 Obesity, unspecified; Z68.41 Body mass index [BMI] 40.0-44.9, adult; Z98.84 Bariatric surgery status

== ENCOUNTER 2017-03-29 07:03 | Observation (INO) | payer OTHER ==
[2017-03-29 07:31] VITALS: BMI 37.8
[2017-03-29] MEDS ORDERED: Iohexol 240 (50 ml) PO STA (07:31)
[2017-03-29] MEDS ORDERED: Sodium Chloride 0.9% 1,000 ML IV STA (07:31)
--- NOTE | 2017-03-29 07:55 | C.PDOC ---
History Of Present Illness Patient is a 31 year old female, with past medical history of liver cirrhosis, presents to Emergency Department for evaluation onset of hematemesis associated with abdominal pain that started at 3:00 this morning. Otherwise, patient denies diarrhea, changes in bowel habits, dysuria, hematuria, frequency, flank pain, fever, or chills. Chief Complaint (Nursing): GI Problem History Per: Patient History/Exam Limitations: no limitations Onset/Duration Of Symptoms: Hrs, Sudden Onset Current Symptoms Are (Timing): Still Present Location Of Pain/Discomfort: Diffuse Radiation Of Pain To:: None Quality Of Discomfort: "Pain" Associated Symptoms: Nausea, Vomiting. denies: Fever, Chills, Diarrhea, Loss Of Appetite, Back Pain, Constipation, Urinary Symptoms Exacerbating Factors: None Alleviating Factors: None Recent travel outside of the [place]: No Additional History Per: Patient Abnormal Vaginal Bleeding: No Past Medical History Reviewed: Historical Data, Nursing Documentation, Vital Signs Vital Signs: Last Vital Signs Temp 98.0 F 03/29/17 07:03 Pulse 80 03/29/17 15:15 Resp 16 03/29/17 15:15 BP 111/57 L 03/29/17 15:15 Pulse Ox 100 03/29/17 16:04 - Medical History PMH: Anemia, Anxiety, Arthritis, Asthma, Back Problems Surgical History: Tonsillectomy - [facility] Procedures EXCISION OF STOMACH, ENDO, DIAGN (12/04/16) INDIVIDUAL PSYCHOTHERAPY, SUPPORTIVE (12/04/16) Family History: States: Unknown Family Hx - Social History Hx Tobacco Use: Yes Hx Alcohol Use: Yes (Quit 1 month ago) Hx Substance Use: No - Immunization History Hx Tetanus Toxoid Vaccination: No Hx Influenza Vaccination: Yes Hx Pneumococcal Vaccination: No Review Of Systems Except As Marked, All Systems Reviewed And Found Negative. Constitutional: Negative for: Fever, Chills Cardiovascular: Negative for: Palpitations, Light Headedness Gastrointestinal: Positive for: Nausea, Vomiting, Abdominal Pain, Hematemesis. Negative for: Diarrhea, Constipation, Melena, Hematochezia Genitourinary: Negative for: Dysuria, Frequency, Hematuria, Vaginal Discharge Musculoskeletal: Negative for: Back Pain Neurological: Negative for: Headache, Dizziness Physical Exam - Physical Exam Appears: Non-toxic, No Acute Distress Skin: Warm, Dry, No Rash Head: Atraumatic, Normacephalic Eye(s): bilateral: Normal Inspection Oral Mucosa: Moist Neck: Normal ROM, Supple Chest: Symmetrical Cardiovascular: Rhythm Regular, No Murmur Respiratory: Normal Breath Sounds, No Rales, No Rhonchi, No Wheezing Gastrointestinal/Abdominal: Soft, Tenderness (diffuse), No Guarding, No Rebound Back: No CVA Tenderness Extremity: Normal ROM Neurological/Psych: Oriented x3, Normal Speech, Normal Cognition ED Course And Treatment - Laboratory Results Result Diagrams: 03/29/17 08:29 03/29/17 08:29 O2 Sat by Pulse Oximetry: 100 (on RA) Pulse Ox Interpretation: Normal Progress Note: Blood work, UA, Abd & Pelvis CT ordered and reviewed. Patient was given IV fluids, Zofran IVP, Protonix inj, and Omnipaque PO. On reassessment , patient still has pain and nausea despite multiple doses of analgetics and antiemetics. Case was d/w who covers for patient's PMD . Patient was accepted for observation to med/surg. Disposition - Disposition Disposition: HOSPITALIZED Disposition Time: 16:03 Condition: FAIR - Clinical Impression Clinical Impression: Liver cirrhosis, Intractable abdominal pain, Vomiting - PA / [employer] / Resident Statement MD/DO has reviewed & agrees with the documentation as recorded. - Scribe Statement The provider has reviewed the documentation as recorded by the Scribe Robert Ritchie All medical record entries made by the Chioibsuzanna were at my direction and personally dictated by me. I have reviewed the chart and agree that the record accurately reflects my personal performance of the history, physical exam, medical decision making, and the department course for this patient. I have also personally directed, reviewed, and agree with the discharge instructions and disposition. Decision To Admit - Pt Status Changed To: Hospital Disposition Of: Observation - . Bed Request Type: Regular Admitting Physician: Zachary Chung Patient Diagnosis: Liver cirrhosis, Intractable abdominal pain, Vomiting
[2017-03-29] MEDS ORDERED: Iohexol 240 (50 ml) ONE (08:08)
[2017-03-29 08:21] LABS: RBC URINE 21 /hpf (0-3); URINE BACTERIA RARE (<OCC); URINE BILIRUBIN 1+ (NEGATIVE); URINE BLOOD 3+ (NEGATIVE); URINE COLOR Amber (YELLOW); URINE GLUCOSE (UA) NORMAL (Normal); URINE KETONE NEGATIVE (NEGATIVE); URINE LEUKOCYTE ESTERASE TRACE Leu/uL (Negative); URINE PROTEIN 2+ mg/dL (NEGATIVE); WBC URINE 7 /hpf (0-5)
[2017-03-29 08:36] LABS: EOS % 0.3 % (0.0-4.0); LYMPH # 0.5 K/uL (1.0-4.3); MEAN CORPUSCULAR HEMOGLOBIN 29.6 pg (27.0-31.0); MEAN CORPUSCULAR HGB CONC 34.4 g/dL (33.0-37.0); MEAN PLATELET VOLUME 9.1 fL (7.2-11.7); MONO # 0.4 K/uL (0.0-0.8); NRBC % 0.1 % (0.0-2.0)
[2017-03-29 08:44] LABS: BASO % 0.5 % (0.0-2.0); HEMATOCRIT 34.7 % (34.0-47.0); LYMPH % 11.2 % (20.0-40.0); MEAN CELL VOLUME 86.2 fL (81.0-99.0); MONO % 9.2 % (0.0-10.0); RED CELL DISTRIBUTION WIDTH 20.7 % (11.5-14.5); WHITE BLOOD COUNT 4.4 K/uL (4.8-10.8)
[2017-03-29 08:51] LABS: CHLORIDE 93 mmol/L (98-107)
[2017-03-29 08:52] LABS: POTASSIUM 3.3 mmol/L (3.6-5.2); SODIUM 130 mmol/L (132-148)
[2017-03-29 08:54] LABS: CARBON DIOXIDE 24 mmol/L (22-30); GFR AFRICAN-AMERICAN > 60
[2017-03-29 08:55] LABS: ALB/GLOB RATIO 0.6 (1.0-2.1); ALKALINE PHOSPHATASE 232 U/L (38-126); ALT/SGPT 33 U/L (9-52); AST/SGOT 108 U/L (14-36); BILIRUBIN,TOTAL 3.6 mg/dL (0.2-1.3); BLOOD UREA NITROGEN 5 mg/dL (7-17); CALCIUM 7.4 mg/dl (8.6-10.4); GLUCOSE,RANDOM 83 mg/dL (65-105); TOTAL PROTEIN 8.5 g/dL (6.3-8.3)
[2017-03-29] MEDS ORDERED: Iodixanol 320 MG/ML 100 ML BOTTLE IV ONE (11:01)
--- NOTE | 2017-03-29 11:57 | CT ---
PROCEDURE: CT Abdomen and Pelvis with contrast HISTORY: abd pain, vomiting, h/o liver cirrhosis COMPARISON: Abdomen pelvis CT exam dated 12/31/2016. TECHNIQUE: Contrast dose: Visipaque 320, 100 cc Radiation dose: Total exam DLP = 1016.76 mGy-cm. This CT exam was performed using one or more of the following dose reduction techniques: Automated exposure control, adjustment of the mA and/or kV according to patient size, and/or use of iterative reconstruction technique. FINDINGS: LOWER THORAX: Ground-glass opacity seen the bilateral upper and lower lobes reflecting interstitial pulmonary disease, likely reversal. No alveolitis. No pleural effusion bilaterally. Cardiac size appears stable. LIVER: Diffuse fatty infiltration liver is recurrent or chronic with no definite mass appreciated. The surface of the liver is smooth with no definitive cirrhotic pattern appreciated however . Hepatomegaly persists. No prominent intrahepatic biliary duct dilatation demonstrated. GALLBLADDER AND BILE DUCTS: Gallbladder is distended with mural thickening but no radiodense cholelithiasis. Consider possible cholecystitis nevertheless. PANCREAS: Unremarkable. No gross lesion or ductal dilatation. SPLEEN: Enlarged once again, up to 16 cm. No underlying lesion appreciable. ADRENALS: Unremarkable. No mass. KIDNEYS AND URETERS: Unremarkable. No hydronephrosis. No solid mass. VASCULATURE: Unremarkable. No aortic aneurysm. BOWEL: Thickening is small-bowel loops at the left flank may indicate segmental enteritis however there is no local perienteric reaction appreciated. Mild pelvic ascites is noted however. Large bowel appears grossly unremarkable. APPENDIX: Normal appendix. PERITONEUM: Limited pelvic ascites. LYMPH NODES: Mild lymphadenopathy is appreciated at the gastrohepatic ligament including 2.7 cm lymph node at the midline at 2.3 cm lymph node to the left of midline. BLADDER: Unremarkable. REPRODUCTIVE: A 3 cm left adnexal cysts identified with none on the right. BONES: No acute fracture. OTHER FINDINGS: None. IMPRESSION: 1. Stable hepatomegaly with likely chronic diffuse fatty infiltration liver appreciated without underlying mass noted in the liver. Splenomegaly is again identified up to 16 cm. Portal venous hypertension may be developing the varices are not clearly identified at this time. Portable Doppler ultrasound exam may be useful for greater characterization of the portal venous system. 2. Distended thick-walled gallbladder may indicate cholecystitis though cholelithiasis not appreciated this time. Clinically correlate further. 3. Thickened small bowel the left leg may indicate acute subacute enteritis. 4. 3 cm left adnexal cyst. Follow-up pelvic ultrasound is recommended.
[2017-03-29] MEDS ORDERED: Morphine 4 MG/ML VIAL ONE (13:11)
[2017-03-29] MEDS ORDERED: Potassium Chloride 20 mEq ER Tab PO ONE ×2 (19:15→19:30)
--- NOTE | 2017-03-29 20:40 | CP.PCM.HP ---
Past Patient History - Infectious Disease Hx of Infectious Diseases: None - Past Medical History & Family History Past Medical History?: Yes - Past Social History Smoking Status: Former Smoker - CARDIAC Hx Cardiac Disorders: No - PULMONARY Hx Asthma: Yes - NEUROLOGICAL Hx Neurological Disorder: No - HEENT Hx HEENT Problems: No - RENAL Hx Chronic Kidney Disease: No - ENDOCRINE/METABOLIC Hx Endocrine Disorders: No - HEMATOLOGICAL/ONCOLOGICAL Hx Anemia: Yes - INTEGUMENTARY Hx Dermatological Problems: No - MUSCULOSKELETAL/RHEUMATOLOGICAL Hx Arthritis: Yes - GASTROINTESTINAL Other/Comment: Liver Cirrhosis. Generalized Edema. Patient stated has fluid around spleen - GENITOURINARY/GYNECOLOGICAL Hx Genitourinary Disorders: No - PSYCHIATRIC Hx Anxiety: Yes Hx Substance Use: No - SURGICAL HISTORY Hx Tonsillectomy: Yes - ANESTHESIA Hx Anesthesia: Yes Hx Anesthesia Reactions: No Hx Malignant Hyperthermia: No Meds Allergies/Adverse Reactions: Allergies Allergy/AdvReac Type Severity Reaction Status Date / Time Penicillins Allergy Severe ANAPHYLAXIS Verified 12/03/16 14:41 Results - Vital Signs Recent Vital Signs: Last Vital Signs Temp 98.0 F 03/29/17 07:03 Pulse 80 03/29/17 15:15 Resp 16 03/29/17 15:15 BP 111/57 L 03/29/17 15:15 Pulse Ox 100 03/29/17 18:26 - Labs Result Diagrams: 03/29/17 08:29 03/29/17 08:29 Labs: Laboratory Results - last 24 hr 03/29/17 03/29/17 03/29/17 07:56 07:56 08:29 WBC 4.4 L RBC 4.02 Hgb 11.9 D Hct 34.7 MCV 86.2 MCH 29.6 MCHC 34.4 RDW 20.7 H Plt Count 107 L D MPV 9.1 Neut % (Auto) 78.8 H Lymph % (Auto) 11.2 L [place] % (Auto) 9.2 Eos % (Auto) 0.3 Baso % (Auto) 0.5 Neut # 3.5 Lymph # 0.5 L [place] # 0.4 Eos # 0.0 Baso # 0.0 Differential Comment Sodium Potassium Chloride Carbon Dioxide Anion Gap BUN Creatinine Est GFR ( Amer) Est GFR (Non-Af Amer) Random Glucose Calcium Total Bilirubin AST ALT Alkaline Phosphatase Ammonia Total Protein Albumin Globulin Albumin/Globulin Ratio Lipase Urine Color Charo Urine Clarity Hazy Urine pH 7.0 Ur Specific [place] 1.017 Urine Protein 2+ H Urine Glucose (UA) Normal Urine Ketones Negative Urine Blood 3+ H Urine Nitrate Positive H Urine Bilirubin 1+ H Urine Urobilinogen 4.0 H Ur Leukocyte Esterase Trace Urine WBC (Auto) 7 H Urine RBC (Auto) 21 H Ur Squamous Epith Cells 9 H Urine Bacteria Rare Urine HCG, Qual Negative Urine Opiates Screen Negative Urine Methadone Screen Negative Ur Barbiturates Screen Negative Ur Phencyclidine Scrn Negative Ur Amphetamines Screen Negative U Benzodiazepines Scrn Negative U Oth Cocaine Metabols Negative U Cannabinoids Screen Negative 03/29/17 03/29/17 08:29 08:29 WBC RBC Hgb Hct MCV MCH MCHC RDW Plt Count MPV Neut % (Auto) Lymph % (Auto) [place] % (Auto) Eos % (Auto) Baso % (Auto) Neut # Lymph # [place] # Eos # Baso # Differential Comment Sodium 130 L Potassium 3.3 L Chloride 93 L Carbon Dioxide 24 Anion Gap 17 BUN 5 L Creatinine 0.5 L Est GFR ( Amer) > 60 Est GFR (Non-Af Amer) > 60 Random Glucose 83 Calcium 7.4 L Total Bilirubin 3.6 H AST 108 H ALT 33 Alkaline Phosphatase 232 H Ammonia 35 H D Total Protein 8.5 H Albumin 3.2 L D Globulin 5.3 H Albumin/Globulin Ratio 0.6 L Lipase 231 Urine Color Urine Clarity Urine pH Ur Specific [place] Urine Protein Urine Glucose (UA) Urine Ketones Urine Blood Urine Nitrate Urine Bilirubin Urine Urobilinogen Ur Leukocyte Esterase Urine WBC (Auto) Urine RBC (Auto) Ur Squamous Epith Cells Urine Bacteria Urine HCG, Qual Urine Opiates Screen Urine Methadone Screen Ur Barbiturates Screen Ur Phencyclidine Scrn Ur Amphetamines Screen U Benzodiazepines Scrn U Oth Cocaine Metabols U Cannabinoids Screen
[2017-03-30 01:48] VITALS: RESP 20
[2017-03-30 08:14] LABS: CHLORIDE 96 mmol/L (98-107)
--- NOTE | 2017-03-30 08:14 | CP.PCM.CON ---
<Shawna Hussein - Last Filed: 03/30/17 08:54> History of Present Illness - History of Present Illness History of Present Illness: Gastroenterology Fellow/PGY4 Consult Note This is a 31 year old female with history of Gastric bypass 7 years ago in [place], [place] and recently diagnosed alcohol cirrhosis in November 2016 presenting with nausea, hematemesisx3 started yesterday. Pt reports still having a little nausea but no more hematemesis, denies abdominal pain, diarrhea , fevers or chills. This all started soon after having [employer] burger and fries. She has not followed up with GI as outpt. Pt was just admitted for ascites, abdominal pain in December and was worked up for cirrhosis with hepatitis panel negative, autoimmune panel negative. Imaging study was negative for any lesions. Pt reports she has not drank alcohol in 2months but did have 2 large glasses of wine last week. Associated heartburn, indigestion, heartburn, and acid reflux. Pt says she takes lasix and spironolactone at home and does not take lactulose has goes to BM3-4x daily. EGD performed last admission on showed LAGB esophagitis, normal bypass anatomy, and Gastritis. No prior colonoscopy. ROS: A 12pt ROS was negative except as above. Family- denies colon cancer, liver cancer, stomach cancer Social- prior 1/2-1 pint vodka daily for 7 years, quit 3 weeks ago; denies tobacco or illicit drug use Surgery- 2 C-sections, BTL, tonsillectomy Past Patient History - Infectious Disease Hx of Infectious Diseases: None - Past Medical History & Family History Past Medical History?: Yes - Past Social History Smoking Status: Former Smoker - CARDIAC Hx Cardiac Disorders: No - PULMONARY Hx Asthma: Yes - NEUROLOGICAL Hx Neurological Disorder: No - HEENT Hx HEENT Problems: No - RENAL Hx Chronic Kidney Disease: No - ENDOCRINE/METABOLIC Hx Endocrine Disorders: No - HEMATOLOGICAL/ONCOLOGICAL Hx Anemia: Yes - INTEGUMENTARY Hx Dermatological Problems: No - MUSCULOSKELETAL/RHEUMATOLOGICAL Hx Arthritis: Yes - GASTROINTESTINAL Other/Comment: Liver Cirrhosis. Generalized Edema. Patient stated has fluid around spleen - GENITOURINARY/GYNECOLOGICAL Hx Genitourinary Disorders: No - PSYCHIATRIC Hx Anxiety: Yes Hx Substance Use: No - SURGICAL HISTORY Hx Tonsillectomy: Yes - ANESTHESIA Hx Anesthesia: Yes Hx Anesthesia Reactions: No Hx Malignant Hyperthermia: No Meds Allergies/Adverse Reactions: Allergies Allergy/AdvReac Type Severity Reaction Status Date / Time Penicillins Allergy Severe ANAPHYLAXIS Verified 12/03/16 14:41 - Medications Medications: Current Medications Escitalopram Oxalate (Lexapro) 20 mg PO DAILY [facility] Folic Acid (Folic Acid) 1 mg PO DAILY [facility] Furosemide (Lasix) 40 mg PO DAILY [facility] Heparin Sodium (Porcine) (Heparin) 5,000 units SC Q8 [facility] Last Admin: 03/30/17 06:08 Dose: 5,000 units Multivitamins (Hexavitamin) 1 tab PO DAILY [facility] Ondansetron HCl (Zofran Inj) 4 mg IVP Q6H PRN PRN Reason: nausea and vomiting Last Admin: 03/29/17 22:20 Dose: 4 mg Pantoprazole Sodium (Protonix Inj) 40 mg IVP DAILY [facility] Pneumococcal Polyvalent Vaccine (Pneumovax 23 Vaccine) 0.5 ml IM .ONCE ONE Stop: 03/31/17 10:01 Sertraline HCl (Zoloft) 50 mg PO DAILY [facility] Thiamine HCl (Vitamin B1 Tab) 100 mg PO DAILY [facility] Tramadol HCl (Ultram) 50 mg PO Q8H PRN PRN Reason: abdominal pain Last Admin: 03/30/17 06:13 Dose: 50 mg Trazodone HCl (Desyrel) 50 mg PO HS [facility] Last Admin: 03/29/17 22:20 Dose: 50 mg Physical Exam - Constitutional Appears: Non-toxic, No Acute Distress - Head Exam Head Exam: ATRAUMATIC, NORMAL INSPECTION, NORMOCEPHALIC - Eye Exam Eye Exam: EOMI, Normal appearance, PERRL Pupil Exam: PERRL - ENT Exam ENT Exam: Mucous Membranes Moist, Normal Exam - Neck Exam Neck exam: Positive for: Normal Inspection - Respiratory Exam Respiratory Exam: Clear to Auscultation Bilateral, NORMAL BREATHING PATTERN - Cardiovascular Exam Cardiovascular Exam: REGULAR RHYTHM, RRR, +S1, +S2 - GI/Abdominal Exam GI & Abdominal Exam: Normal Bowel Sounds, Soft. absent: Distended, Organomegaly , Tenderness - Rectal Exam Rectal Exam: Deferred - Extremities Exam Extremities exam: Positive for: normal inspection. Negative for: calf tenderness, pedal edema - Back Exam Back exam: NORMAL INSPECTION - Neurological Exam Neurological exam: Alert, Oriented x3 - Psychiatric Exam Psychiatric exam: Normal Affect, Normal Mood - Skin Skin Exam: Dry, Intact, Normal Color, Warm Results - Vital Signs Recent Vital Signs: Last Vital Signs Temp 97.9 F 03/30/17 00:00 Pulse 81 03/30/17 00:00 Resp 20 03/30/17 00:00 BP 113/70 03/30/17 00:00 Pulse Ox 94 L 03/30/17 00:00 - Labs Result Diagrams: 03/29/17 08:29 03/30/17 07:33 Labs: Laboratory Results - last 24 hr 03/29/17 03/29/17 03/29/17 07:56 07:56 08:29 WBC 4.4 L RBC 4.02 Hgb 11.9 D Hct 34.7 MCV 86.2 MCH 29.6 MCHC 34.4 RDW 20.7 H Plt Count 107 L D MPV 9.1 Neut % (Auto) 78.8 H Lymph % (Auto) 11.2 L [place] % (Auto) 9.2 Eos % (Auto) 0.3 Baso % (Auto) 0.5 Neut # 3.5 Lymph # 0.5 L [place] # 0.4 Eos # 0.0 Baso # 0.0 Differential Comment APTT Sodium Potassium Chloride Carbon Dioxide Anion Gap BUN Creatinine Est GFR ( Amer) Est GFR (Non-Af Amer) Random Glucose Calcium Total Bilirubin AST ALT Alkaline Phosphatase Ammonia Total Protein Albumin Globulin Albumin/Globulin Ratio Lipase Urine Color Charo Urine Clarity Hazy Urine pH 7.0 Ur Specific [place] 1.017 Urine Protein 2+ H Urine Glucose (UA) Normal Urine Ketones Negative Urine Blood 3+ H Urine Nitrate Positive H Urine Bilirubin 1+ H Urine Urobilinogen 4.0 H Ur Leukocyte Esterase Trace Urine WBC (Auto) 7 H Urine RBC (Auto) 21 H Ur Squamous Epith Cells 9 H Urine Bacteria Rare Urine HCG, Qual Negative Urine Opiates Screen Negative Urine Methadone Screen Negative Ur Barbiturates Screen Negative Ur Phencyclidine Scrn Negative Ur Amphetamines Screen Negative U Benzodiazepines Scrn Negative U Oth Cocaine Metabols Negative U Cannabinoids Screen Negative 03/29/17 03/29/17 03/30/17 08:29 08:29 07:33 WBC RBC Hgb Hct MCV MCH MCHC RDW Plt Count MPV Neut % (Auto) Lymph % (Auto) [place] % (Auto) Eos % (Auto) Baso % (Auto) Neut # Lymph # [place] # Eos # Baso # Differential Comment APTT 54 H Sodium 130 L Potassium 3.3 L Chloride 93 L Carbon Dioxide 24 Anion Gap 17 BUN 5 L Creatinine 0.5 L Est GFR ( Amer) > 60 Est GFR (Non-Af Amer) > 60 Random Glucose 83 Calcium 7.4 L Total Bilirubin 3.6 H AST 108 H ALT 33 Alkaline Phosphatase 232 H Ammonia 35 H D Total Protein 8.5 H Albumin 3.2 L D Globulin 5.3 H Albumin/Globulin Ratio 0.6 L Lipase 231 Urine Color Urine Clarity Urine pH Ur Specific [place] Urine Protein Urine Glucose (UA) Urine Ketones Urine Blood Urine Nitrate Urine Bilirubin Urine Urobilinogen Ur Leukocyte Esterase Urine WBC (Auto) Urine RBC (Auto) Ur Squamous Epith Cells Urine Bacteria Urine HCG, Qual Urine Opiates Screen Urine Methadone Screen Ur Barbiturates Screen Ur Phencyclidine Scrn Ur Amphetamines Screen U Benzodiazepines Scrn U Oth Cocaine Metabols U Cannabinoids Screen Assessment & Plan - Assessment and Plan (Free Text) Assessment: 31 yF with pmx of gastric bypass, alcohol abuse, alcoholic cirrhosis. Pt pw nausea, vomiting, and 2-3x hematemesis. EGD performed last admission on 12/06/16 showed LAGB esophagitis, normal bypass anatomy, and gastritis. No prior colonoscopy. 1. Alcoholic cirrhosis 2. Hematemesis 3. Hx alcohol abuse 4. Obesity s/p gastric bypass 5. Gastroenteritis Plan: -No active GI bleed, hemodynamically stable, Hgb stable -No plan for endoscopic evaluation at this time, recent EGD in November, will need EGD in 1yr for variceal screening -Continue Lasix-recommend lasix 40mg daily and add spironolactone 25mg daily -low salt diet, discussed diet change with no fast food -Clinically improving, tolerating breakfast with no nausea or vomiting -supportive care: anti-emetics, PPI -alcohol cessation counselling -discussed about the importance of outpt followup for liver cirrhosis and alcohol cessation -Okay for discharge home with outpt follow up with Dr Rodrigues at [facility] <[employer] - Last Filed: 03/30/17 09:10> Meds - Medications Medications: Current Medications Escitalopram Oxalate (Lexapro) 20 mg PO DAILY [facility] Folic Acid (Folic Acid) 1 mg PO DAILY [facility] Furosemide (Lasix) 40 mg PO DAILY [facility] Heparin Sodium (Porcine) (Heparin) 5,000 units SC Q8 [facility] Last Admin: 03/30/17 06:08 Dose: 5,000 units Multivitamins (Hexavitamin) 1 tab PO DAILY [facility] Ondansetron HCl (Zofran Inj) 4 mg IVP Q6H PRN PRN Reason: nausea and vomiting Last Admin: 03/29/17 22:20 Dose: 4 mg Pantoprazole Sodium (Protonix Inj) 40 mg IVP DAILY [facility] Pneumococcal Polyvalent Vaccine (Pneumovax 23 Vaccine) 0.5 ml IM .ONCE ONE Stop: 03/31/17 10:01 Sertraline HCl (Zoloft) 50 mg PO DAILY [facility] Thiamine HCl (Vitamin B1 Tab) 100 mg PO DAILY [facility] Tramadol HCl (Ultram) 50 mg PO Q8H PRN PRN Reason: abdominal pain Last Admin: 03/30/17 06:13 Dose: 50 mg Trazodone HCl (Desyrel) 50 mg PO HS [facility] Last Admin: 03/29/17 22:20 Dose: 50 mg Results - Vital Signs Recent Vital Signs: Last Vital Signs Temp 98.1 F 03/30/17 08:37 Pulse 79 03/30/17 08:37 Resp 20 03/30/17 08:37 BP 97/62 L 03/30/17 08:37 Pulse Ox 97 03/30/17 08:37 - Labs Result Diagrams: 03/29/17 08:29 03/30/17 07:33 Labs: Laboratory Results - last 24 hr 03/29/17 03/30/17 03/30/17 08:29 07:33 07:33 Differential Comment APTT 54 H Sodium 129 L Potassium 3.4 L Chloride 96 L Carbon Dioxide 26 Anion Gap 10 BUN 5 L Creatinine 0.6 L Est GFR ( Amer) > 60 Est GFR (Non-Af Amer) > 60 Random Glucose 78 Calcium 7.3 L Total Bilirubin 3.7 H AST 100 H ALT 29 Alkaline Phosphatase 187 H Total Protein 7.4 Albumin 2.8 L Globulin 4.7 H Albumin/Globulin Ratio 0.6 L Attending/Attestation - Attestation I have personally seen and examined this patient.: Yes I have fully participated in the care of the patient.: Yes I have reviewed all pertinent clinical information: Yes Notes (Text): 03/30/17 09:04 I have seen and examined patient with GI fellow. Agree with above documentation with the following additions. In brief, this is a 31 year old female with history of obesity s/p gastric bypass, ETOH cirrhosis who presents to hospital with complaint of nausea, abdominal pain, and vomiting which began yesterday with slight blood tinge. Prior to this she was in usual state of health, though does report intermittent vomiting over the past few weeks. She admits to poor dietary habits with excessive salt intake and yesterday prior to symptom onset she was eating [employer] burgers with onion rings. Since arrival to hospital she has not had any recurrent vomiting but describes residual abdominal discomfort. She has reduced amount of ETOH intake, though drank a "few" glasses of wine recently and currently attends ETOH rehab sessions at outside facility. She had a recent EGD in November 2016 which showed erosive esophagitis and gastritis. Obesity s/p gastric bypass ETOH cirrhosis Nausea, vomiting - resolved, likely secondary to gastroenteritis - Low sodium diet as tolerated - Continue with PPI therapy - Anti-emetic therapy PRN - H/H stable, continue to monitor - ETOH cessation counseling provided to patient - No acute planned GI intervention from GI standpoint ok to discharge with subsequent outpatient follow up. Will sign off case, please reconsult as necessary, thank you.
[2017-03-30 08:15] LABS: POTASSIUM 3.4 mmol/L (3.6-5.2); SODIUM 129 mmol/L (132-148)
[2017-03-30 08:17] LABS: ALB/GLOB RATIO 0.6 (1.0-2.1); AST/SGOT 100 U/L (14-36); BILIRUBIN,TOTAL 3.7 mg/dL (0.2-1.3); BLOOD UREA NITROGEN 5 mg/dL (7-17); CARBON DIOXIDE 26 mmol/L (22-30); GFR AFRICAN-AMERICAN > 60; TOTAL PROTEIN 7.4 g/dL (6.3-8.3)
[2017-03-30 08:18] LABS: ALKALINE PHOSPHATASE 187 U/L (38-126); ALT/SGPT 29 U/L (9-52); CALCIUM 7.3 mg/dl (8.6-10.4); GLUCOSE,RANDOM 78 mg/dL (65-105)
--- NOTE | 2017-03-30 09:11 | CP.PCM.PN ---
Subjective - Date & Time of Evaluation Date of Evaluation: 03/30/17 Time of Evaluation: 09:11 Objective - Vital Signs/Intake and Output Vital Signs (last 24 hours): Temp Pulse Resp BP Pulse Ox 98.1 F 79 20 97/62 L 97 03/30/17 08:37 03/30/17 08:37 03/30/17 08:37 03/30/17 08:37 03/30/17 08:37 Intake and Output: 03/30/17 03/30/17 06:59 18:59 Intake Total 540 Balance 540 - Medications Medications: Current Medications Escitalopram Oxalate (Lexapro) 20 mg PO DAILY [facility] Folic Acid (Folic Acid) 1 mg PO DAILY [facility] Furosemide (Lasix) 40 mg PO DAILY [facility] Heparin Sodium (Porcine) (Heparin) 5,000 units SC Q8 [facility] Last Admin: 03/30/17 06:08 Dose: 5,000 units Multivitamins (Hexavitamin) 1 tab PO DAILY [facility] Ondansetron HCl (Zofran Inj) 4 mg IVP Q6H PRN PRN Reason: nausea and vomiting Last Admin: 03/29/17 22:20 Dose: 4 mg Pantoprazole Sodium (Protonix Inj) 40 mg IVP DAILY [facility] Pneumococcal Polyvalent Vaccine (Pneumovax 23 Vaccine) 0.5 ml IM .ONCE ONE Stop: 03/31/17 10:01 Sertraline HCl (Zoloft) 50 mg PO DAILY [facility] Spironolactone (Aldactone) 25 mg PO DAILY [facility] Thiamine HCl (Vitamin B1 Tab) 100 mg PO DAILY [facility] Tramadol HCl (Ultram) 50 mg PO Q8H PRN PRN Reason: abdominal pain Last Admin: 03/30/17 06:13 Dose: 50 mg Trazodone HCl (Desyrel) 50 mg PO HS [facility] Last Admin: 03/29/17 22:20 Dose: 50 mg - Labs Labs: 03/29/17 08:29 03/30/17 07:33 APTT 54 SECONDS (21-34) H 03/30/17 07:33
[2017-03-30] MEDS: Multiple Vitamins Tab PO SCH (10:19)
[2017-03-30] MEDS ORDERED: Potassium Chloride 20 mEq ER Tab PO ONE (13:21)
[2017-03-30] MEDS ORDERED: Potassium Chloride 20 mEq/15 ml LIQ UD PO ONE (14:06)
[2017-03-30 20:04] LABS: HEMATOCRIT 34.1 % (34.0-47.0); MEAN CELL VOLUME 87.6 fL (81.0-99.0); MEAN CORPUSCULAR HEMOGLOBIN 29.5 pg (27.0-31.0); MEAN CORPUSCULAR HGB CONC 33.7 g/dL (33.0-37.0); MEAN PLATELET VOLUME 9.1 fL (7.2-11.7); WHITE BLOOD COUNT 6.7 K/uL (4.8-10.8)
[2017-03-31 09:31] VITALS: BP 135/81; PULSE 76; TEMP 98.5; O2SAT 97
[2017-03-31] MEDS ORDERED: Pneumococcal 23-Valent Vaccine IM ONE (10:00)
[2017-03-31] MEDS: Multiple Vitamins Tab PO SCH (10:52)
[2017-03-31] MEDS ORDERED: Influenza Vaccine 60 mcg/0.5 mL SYR (4YR UP) IM ONE (11:05)
[2017-04-01] MEDS ORDERED: Influenza Vaccine 60 mcg/0.5 mL SYR (4YR UP) IM ONE (10:00)
== END 2017-03-31 13:00 | disposition home or self-care (01) ==
LOC: C.ER 07:03 → C.9E 15:58 → C.3T 16:48
PROVIDERS: ADMIT Internal Medicine Critical Care Medicine; ATTEND Internal Medicine Critical Care Medicine
DX: K74.60 Unspecified cirrhosis of liver (principal); K92.0 Hematemesis; D64.9 Anemia, unspecified; J45.909 Unspecified asthma, uncomplicated; F41.9 Anxiety disorder, unspecified
CPT/HCPCS: 36415; 74177; 80053; 80324; 80345; 80346; 80349; 80353; 80358; 80361; 81001; 82140; 83690; 83992; 84703; 85025; 85027; 85730; 96360; 96374; 99285; C9113; G0378; J1644; J2270; J2405; J2765; J7040; Q9966; Q9967

== ENCOUNTER 2017-09-30 15:56 | Emergency (ER) | payer OTHER ==
[2017-09-30 15:56] VITALS: BMI 34.9
[2017-09-30 17:10] VITALS: O2SAT 100
--- NOTE | 2017-09-30 19:39 | C.PDOC ---
History Of Present Illness 32 year old female presents to the ED for evaluation of non-productive cough that is associated with left-sided pleuritic pain which began around 3 days ago. Patient admits to history of asthma but states her current symptoms feel different. Patient denies fever, chills, shortness of breath, and wheezing. Time Seen by Provider: 09/30/17 18:09 Chief Complaint (Nursing): Cough, Cold, Congestion History Per: Patient History/Exam Limitations: clinical condition Onset/Duration Of Symptoms: Days (3) Current Symptoms Are (Timing): Still Present Quality: "Pain" Additional History Per: Patient Past Medical History Reviewed: Historical Data, Nursing Documentation, Vital Signs Vital Signs: Last Vital Signs Temp 98.2 F 09/30/17 17:08 Pulse 65 09/30/17 17:08 Resp 18 09/30/17 17:08 BP 130/85 09/30/17 17:08 Pulse Ox 100 09/30/17 19:57 - Medical History PMH: Anemia, Anxiety, Arthritis, Asthma, Back Problems, Depression Denies: Chronic Kidney Disease Surgical History: Tonsillectomy - [facility] Procedures EXCISION OF STOMACH, ENDO, DIAGN (12/04/16) INDIVIDUAL PSYCHOTHERAPY, SUPPORTIVE (12/04/16) Family History: States: Unknown Family Hx - Social History Hx Tobacco Use: Yes Hx Alcohol Use: Yes Hx Substance Use: No - Immunization History Hx Tetanus Toxoid Vaccination: No Hx Influenza Vaccination: Yes Hx Pneumococcal Vaccination: No Review Of Systems Constitutional: Negative for: Fever, Chills Cardiovascular: Positive for: Other (left-sided pleuritic pain ) Respiratory: Positive for: Cough. Negative for: Shortness of Breath, Sputum, Wheezing Physical Exam - Physical Exam Appears: Non-toxic, No Acute Distress Skin: Normal Color, Warm, Dry Head: Atraumatic, Normacephalic Eye(s): bilateral: Normal Inspection Oral Mucosa: Moist Neck: Supple Chest: Symmetrical, No Deformity, Tenderness (to left lateral chest wall on palpation ) Cardiovascular: Rhythm Regular, No Murmur Respiratory: Normal Breath Sounds, No Rales, No Rhonchi, No Wheezing Extremity: Normal ROM, Capillary Refill (less than 2 seconds ) Neurological/Psych: Oriented x3, Normal Speech, Normal Cognition ED Course And Treatment ECG: Interpreted By Me, Viewed By Me ECG Rhythm: Sinus Bradycardia Interpretation Of ECG: Sinus Bradycardia at rate 58bpm. Normal axis. No acute ST /T wave changes. Rate From EC O2 Sat by Pulse Oximetry: 100 (on RA) Pulse Ox Interpretation: Normal Progress Note: CXR ordered and reviewed. Patient given Tylenol PO and Flexeril PO. On reassessment, patient is resting comfortably, showing no signs of distress and reports an improvement in her symptoms. Patient is stable for discharge and is advised to f/u with her PMD/clinic within 1-2 days for further evaluation and/or return to the ED if symptoms persist or worsen. Disposition Counseled Patient/Family Regarding: Studies Performed, Diagnosis, Need For Followup, Rx Given - Disposition Referrals: Hunter Hunt DO [Staff Provider] - Disposition: HOME/ ROUTINE Disposition Time: 19:40 Condition: STABLE Additional Instructions: FOLLOW UP WITH YOUR DOCTOR IN 1-2 DAYS USE MEDICATIONS NEEDED RETURN TO ER IF SYMPTOMS WORSEN Prescriptions: Cyclobenzaprine [Flexeril] 10 mg PO BID PRN #15 tab PRN Reason: Muscle Spasm Naproxen 375 mg PO BID PRN #20 tablet PRN Reason: pain Instructions: Chest Pain That Is Not Caused by the Heart (DC) Forms: [employer] (Syriac) Print Language: AFGHAN - Clinical Impression Clinical Impression: Pleuritic chest pain, Non-cardiac chest pain - Scribe Statement The provider has reviewed the documentation as recorded by the Scribe (Marlee Ritchie) Provider Attestation: All medical record entries made by the Scribe were at my direction and personally dictated by me. I have reviewed the chart and agree that the record accurately reflects my personal performance of the history, physical exam, medical decision making, and the department course for this patient. I have also personally directed, reviewed, and agree with the discharge instructions and disposition.
[2017-09-30 20:30] VITALS: BP 103/68; PULSE 57; RESP 20; TEMP 97.9
--- NOTE | 2017-10-01 11:11 | RAD ---
HISTORY: CHEST PAIN COMPARISON: Chest radiographs 12/29/2016. TECHNIQUE: Chest PA and lateral FINDINGS: LUNGS: No active pulmonary disease. Improved history volume identified bilaterally. PLEURA: No significant pleural effusion identified. No pneumothorax apparent. CARDIOVASCULAR: Normal. OSSEOUS STRUCTURES: No significant abnormalities. VISUALIZED UPPER ABDOMEN: Normal. OTHER FINDINGS: None. IMPRESSION: No acute cardiopulmonary findings. Prior potential trace bilateral pleural effusions and patchy density at the bases appears to have resolved as well as bilateral hilar prominence.
--- NOTE | 2017-10-01 17:09 | CARD ---
APPROVED REPORT EKG Measurement Heart [id number] <Conclusion> Sinus bradycardia Otherwise normal ECG
== END 2017-09-30 20:30 | disposition home or self-care (01) ==
LOC: C.ER 15:56
DX: R07.81 Pleurodynia (principal)

== ENCOUNTER 2017-10-01 09:07 | Day surgery (SDC) | payer OTHER ==
[2017-09-30 13:48] VITALS: BMI 34.9
--- NOTE | 2017-10-01 11:21 | CP.SDSHP ---
Same Day Surgery H & P - History Proposed Procedure: EGD Pre-Op Diagnosis: SEE NOTES - Previous Medical/Surgical History Neuro: Other Misc: Other - Allergies Allergies: Allergies Penicillins Allergy (Severe, Verified 10/01/17 10:04) ANAPHYLAXIS - Physical Exam General Appearance: N Vital Signs: Vital Signs 10/01/17 10:15 Temperature 97.5 F L Pulse Rate 63 Respiratory 19 Rate Blood Pressure 124/44 L O2 Sat by Pulse 100 Oximetry Neuro: WNL Heart: WNL Lungs: WNL GI: Other - {Optional Preform as Required} Breast: WNL Abdomen: Other Rectal: Other Integument: WNL : WNL Ortho: Other ENT: WNL - Impression Pt. Evaluated Today:Candidate for Anesthesia & Procedure: Yes - Date & Time Time: 11:21 Short Stay Discharge - Short Stay Discharge Admitting Diagnosis/Reason for Visit: DYSPEPSIA Disposition: HOME/ ROUTINE
[2017-10-01] MEDS ORDERED: Midazolam 2 MG/2 ML VIAL ONE (11:24)
[2017-10-01] MEDS ORDERED: Propofol 10 mg/ml Inj (20 ML) ONE (11:24)
[2017-10-01] MEDS ORDERED: Lidocaine Hydrochloride 5 ML INJ ONE (11:25)
[2017-10-01 12:29] VITALS: RESP 16; TEMP 99.1; O2SAT 99
[2017-10-01 12:34] VITALS: BP 104/50; PULSE 64
== END 2017-10-01 13:00 | disposition home or self-care (01) ==
LOC: C.ENDO 09:07
PROVIDERS: ATTEND Specialist
DX: R10.84 Generalized abdominal pain (principal); R10.13 Epigastric pain; R12 Heartburn; Z98.0 Intestinal bypass and anastomosis status
CPT/HCPCS: 43235; 84703; J2250; J2704

== ENCOUNTER 2017-11-10 03:17 | Emergency (ER) | payer OTHER ==
[2017-11-10 03:17] VITALS: BMI 34.9
[2017-11-10] MEDS ORDERED: Sodium Chloride 0.9% 500 ML IV ONE (04:19)
--- NOTE | 2017-11-10 04:22 | C.PDOC ---
History Of Present Illness 32 year old female presents to the ED c/o diffuse abdominal pain radiating to her back that started last night. Patient is also c/o nausea as well. Patient denies fever, chills, vomiting, diarrhea, dysuria, hematuria, recent travel, sick contacts. Time Seen by Provider: 11/10/17 03:37 Chief Complaint (Nursing): Abdominal Pain History Per: Patient History/Exam Limitations: no limitations Onset/Duration Of Symptoms: Days Location Of Pain/Discomfort: Diffuse Radiation Of Pain To:: Back Quality Of Discomfort: "Pain" Associated Symptoms: Nausea Exacerbating Factors: None Alleviating Factors: None Recent travel outside of the [place]: No Additional History Per: Patient Abnormal Vaginal Bleeding: No Past Medical History Reviewed: Historical Data, Nursing Documentation, Vital Signs Vital Signs: Last Vital Signs Temp 97.8 F 11/10/17 06:40 Pulse 83 11/10/17 06:40 Resp 18 11/10/17 06:40 BP 139/81 11/10/17 06:40 Pulse Ox 97 11/10/17 06:40 - Medical History PMH: Anemia, Anxiety, Arthritis, Asthma, Back Problems, Depression, HTN Denies: Chronic Kidney Disease Surgical History: Tonsillectomy - [facility] Procedures EXCISION OF STOMACH, ENDO, DIAGN (12/04/16) INDIVIDUAL PSYCHOTHERAPY, SUPPORTIVE (12/04/16) Family History: States: Unknown Family Hx - Social History Hx Tobacco Use: Yes Hx Alcohol Use: Yes Hx Substance Use: No - Immunization History Hx Tetanus Toxoid Vaccination: No Hx Influenza Vaccination: Yes Hx Pneumococcal Vaccination: No Review Of Systems Constitutional: Negative for: Fever, Chills Cardiovascular: Negative for: Chest Pain Respiratory: Negative for: Shortness of Breath Gastrointestinal: Positive for: Nausea, Abdominal Pain. Negative for: Vomiting , Diarrhea Musculoskeletal: Positive for: Back Pain Skin: Negative for: Rash Physical Exam - Physical Exam Appears: Non-toxic, No Acute Distress Skin: Normal Color, Warm, Dry Head: Atraumatic, Normacephalic Eye(s): bilateral: Normal Inspection Oral Mucosa: Moist Neck: Normal ROM, Supple Chest: Symmetrical Cardiovascular: Rhythm Regular, No Murmur Respiratory: Normal Breath Sounds, No Rales, No Rhonchi, No Wheezing Gastrointestinal/Abdominal: Soft, Tenderness (diffuse), No Guarding, No Rebound , Other (obese ) Extremity: Normal ROM, No Tenderness, No Swelling Neurological/Psych: Oriented x3, Normal Speech Gait: Steady ED Course And Treatment - Laboratory Results Result Diagrams: 11/10/17 04:43 11/10/17 04:43 O2 Sat by Pulse Oximetry: 98 (On RA) Pulse Ox Interpretation: Normal Progress Note: Plan: - CT abd. - Labs. - IV fluids. - Toradol 30 mg IV. - UA. On reevaluation patient reports pain has improved. Patient still pending CT scan. Disposition - Disposition Disposition Time: 06:53 Condition: STABLE Forms: [employer] (Nigerien) - Clinical Impression Clinical Impression: Abdominal pain - PA / HOPPER ATTENDANT / Resident Statement MD/DO has reviewed & agrees with the documentation as recorded. - Scribe Statement The provider has reviewed the documentation as recorded by the Scribe Pranay Mcrae All medical record entries made by the Scribe were at my direction and personally dictated by me. I have reviewed the chart and agree that the record accurately reflects my personal performance of the history, physical exam, medical decision making, and the department course for this patient. I have also personally directed, reviewed, and agree with the discharge instructions and disposition. Physician Patient Turnover Patient Signed Over To: Farzana Hurst Handoff Comments: Pending CT scan results and dispo
[2017-11-10 04:48] LABS: BASO # 0.1 K/uL (0.0-0.2); BASO % 0.8 % (0.0-2.0); EOS # 0.2 K/uL (0.0-0.7); EOS % 2.8 % (0.0-4.0); HEMOGLOBIN 10.5 g/dL (11.0-16.0); LYMPH # 1.4 K/uL (1.0-4.3); LYMPH % 23.1 % (20.0-40.0); MEAN CELL VOLUME 88.2 fL (81.0-99.0); MEAN CORPUSCULAR HEMOGLOBIN 29.6 pg (27.0-31.0); MEAN CORPUSCULAR HGB CONC 33.5 g/dL (33.0-37.0); MEAN PLATELET VOLUME 8.5 fL (7.2-11.7); MONO # 0.5 K/uL (0.0-0.8); MONO % 8.9 % (0.0-10.0); NEUT # 3.9 K/uL (1.8-7.0); NEUT % 64.4 % (50.0-75.0); RBC 3.54 Mil/uL (3.80-5.20); RED CELL DISTRIBUTION WIDTH 21.2 % (11.5-14.5)
[2017-11-10 05:17] LABS: ALB/GLOB RATIO 0.9 (1.0-2.1); ALBUMIN 3.6 g/dL (3.5-5.0); ALT/SGPT 14 U/L (9-52); AST/SGOT 52 U/L (14-36); BLOOD UREA NITROGEN 5 mg/dL (7-17); GFR AFRICAN-AMERICAN > 60; GFR NON-AFRICAN AMERICAN > 60; LIPASE 260 U/L (23-300)
[2017-11-10] MEDS ORDERED: Iodixanol 320 MG/ML 100 ML BOTTLE IV ONE (06:16)
[2017-11-10 06:26] LABS: SQUAMOUS EPITHIAL 2 /hpf (0-5); URINE BACTERIA RARE (<OCC); URINE BILIRUBIN NEGATIVE (NEGATIVE); URINE BLOOD 1+ (NEGATIVE); URINE CLARITY Hazy (Clear); URINE COLOR Amber (YELLOW); URINE GLUCOSE (UA) NORMAL (Normal); URINE LEUKOCYTE ESTERASE NEG Leu/uL (Negative); URINE PROTEIN NEGATIVE (NEGATIVE)
[2017-11-10 06:54] LABS: HCG,QUALITATIVE URINE NEGATIVE (NEGATIVE)
--- NOTE | 2017-11-10 07:32 | CT ---
EXAM: CT Abdomen and Pelvis With Intravenous Contrast CLINICAL HISTORY: 32 years old, female; Pain; Abdominal pain; Generalized; Prior surgery; Surgery date: 6+ months; Surgery type: Gastric bypass; Additional info: Abd pain , diffuse TECHNIQUE: Axial computed tomography images of the abdomen and pelvis with intravenous contrast. All CT scans at this facility use one or more dose reduction techniques, viz.: automated exposure control; ma/kV adjustment per patient size (including targeted exams where dose is matched to indication; i.e. head); or iterative reconstruction technique. Coronal and sagittal reformatted images were created and reviewed. CONTRAST: 100 mL of visi administered intravenously. COMPARISON: CT - ABD PELVIS PO IV CONTRAST 2017-03-29 11:15 FINDINGS: Lung bases: Unremarkable. No mass. No consolidation. ABDOMEN: Liver: There is a small amount of perihepatic fluid. The liver is enlarged measuring 22.6 cm. The liver is somewhat nodular in contour. Gallbladder and bile ducts: The gallbladder is thick walled. No calcified stones. No ductal dilation. Pancreas: Unremarkable. No mass. No ductal dilation. Spleen: Unremarkable. No splenomegaly. Adrenals: Unremarkable. No mass. Kidneys and ureters: Unremarkable. No solid mass. No hydronephrosis. Stomach and bowel: There has been a gastric stapling and bypass. The cecum in a sitting colon are mildly thick walled. No obstruction. PELVIS: Appendix: No findings to suggest acute appendicitis. Bladder: Unremarkable. No mass. Reproductive: Unremarkable as visualized. ABDOMEN and PELVIS: Intraperitoneal space: Trace pelvic cul-de-sac free fluid. No free air. No significant fluid collection. Retroperitoneal space: The generalized haziness of the manuel hepatis and retroperitoneum at the level of the SMA and celiac axis suggesting edema. Bones/joints: No acute fracture. No dislocation. Soft tissues: Unremarkable. Vasculature: The spleen is enlarged measuring 14.2 cm. There are splenic varices noted which could be secondary to portal hypertension. Lymph nodes: Multiple small subcentimeter retroperitoneal lymph nodes. IMPRESSION: Hepatosplenomegaly with splenic varices suggesting portal hypertension. Somewhat nodular liver contour. Correlate clinically to exclude chronic hepatocellular disease. Trace perihepatic free fluid. Thickwalled gallbladder. Correlate with laboratory values to exclude acute cholecystitis. This can also be associated with chronic hepatocellular disease and other causes. Thick walled cecum and ascending colon could be secondary to mild colitis. This can also be associated with chronic liver disease. Gastric bypass.
--- NOTE | 2017-11-10 09:24 | US ---
HISTORY: Pain epigastric, RUQ, h/o liver cirrhosis COMPARISON: Comparison is made with the previous CT dated 11/10/2017 TECHNIQUE: Sonographic evaluation of the right upper quadrant of the abdomen. FINDINGS: LIVER: Measures 21.36 cm in length. Moderate increased echogenicity of the liver parenchyma. No mass. No intrahepatic bile duct dilatation. GALLBLADDER: Diffuse gallbladder wall thickening measures up to 6.6 millimeter. No definite evidence of gallstones. There is suspicious for sludge ball in the gallbladder. COMMON BILE DUCT: Measures 4.2 mm. No stones. No dilatation. PANCREAS: Unremarkable as visualized. No mass. No ductal dilatation. RIGHT KIDNEY: Measures 11.4 x 5 x 5.8 cm in length. Normal echogenicity. No calculus, mass, or hydronephrosis. AORTA: No aneurysmal dilatation. IVC: Unremarkable. OTHER FINDINGS: Free fluid seen in the upper abdomen. IMPRESSION: Heterogeneous and echogenic liver. Diffuse gallbladder wall thickening. Sludge ball seen in the gallbladder. Trace ascites in the right upper abdomen.
[2017-11-10 10:36] VITALS: BP 101/69; PULSE 69; RESP 17; TEMP 98.5; O2SAT 100
== END 2017-11-10 10:36 | disposition home or self-care (01) ==
LOC: C.ER 03:17
DX: R10.13 Epigastric pain (principal)
CPT/HCPCS: 74177; 76705; 80053; 81001; 83690; 84702; 84703; 85025; 96374; 99285; J1885; J7040; Q9967

== ENCOUNTER 2018-02-04 05:22 | Emergency (ER) | payer OTHER ==
[2018-02-04 05:23] VITALS: BMI 34.9
[2018-02-04] MEDS ORDERED: Sodium Chloride 0.9% 1,000 ML IV ONE (05:41)
--- NOTE | 2018-02-04 05:42 | C.PDOC ---
History Of Present Illness 32 year old female s/p tooth extraction yesterday presents to the ER with a complaint of mouth pain and bleeding, associated with nausea, vomiting, and headache. Patient was prescribed tylenol w/ codeine, ibuprofen, and clindamycin by her dentist. She states she cannot take the ibuprofen due to her gastric bypass, and has not had any relief from the tylenol w/ codeine. Denies fever, chills, or abdominal pain. Time Seen by Provider: 02/04/18 05:36 Chief Complaint (Nursing): Dental Pain History Per: Patient History/Exam Limitations: no limitations Onset/Duration Of Symptoms: Hrs Current Symptoms Are (Timing): Still Present Quality: Positive for: Other (Throbbing) Recent travel outside of the [place]: No Past Medical History Reviewed: Historical Data, Nursing Documentation, Vital Signs Vital Signs: Last Vital Signs Temp 98.8 F 02/04/18 07:19 Pulse 88 02/04/18 07:19 Resp 20 02/04/18 07:19 BP 116/71 02/04/18 07:19 Pulse Ox 99 02/04/18 07:19 - Medical History PMH: Anemia, Anxiety, Arthritis, Asthma, Back Problems, Depression, HTN Denies: Chronic Kidney Disease Surgical History: Tonsillectomy - [facility] Procedures EXCISION OF STOMACH, ENDO, DIAGN (12/04/16) INDIVIDUAL PSYCHOTHERAPY, SUPPORTIVE (12/04/16) Family History: States: Unknown Family Hx - Social History Hx Tobacco Use: Yes Hx Alcohol Use: Yes Hx Substance Use: No - Immunization History Hx Tetanus Toxoid Vaccination: No Hx Influenza Vaccination: Yes Hx Pneumococcal Vaccination: No Review Of Systems Constitutional: Negative for: Fever, Chills ENT: Positive for: Mouth Pain, Other (Dental bleeding) Gastrointestinal: Positive for: Nausea, Vomiting. Negative for: Abdominal Pain Neurological: Positive for: Headache Physical Exam - Physical Exam Appears: Non-toxic Skin: Normal Color, Warm, Dry Head: Atraumatic, Normacephalic Eye(s): bilateral: Normal Inspection Nose: Normal Oral Mucosa: Moist Tongue: Normal Appearing Lips: Normal Appearing Teeth: Other (bilateral lower molars s/p extraction, sutures intact; upper lateral incisor left and right s.p extraction and right site active bleeding) Gingiva: Bleeding (Around upper incisor right) Throat: Normal, No Erythema, No Other (Bleeding) Neck: Normal, Supple, No Other (Swelling) Chest: Symmetrical Cardiovascular: Rhythm Regular Respiratory: Normal Breath Sounds Extremity: Bilateral: Atraumatic, Normal ROM Neurological/Psych: Oriented x3, Normal Speech ED Course And Treatment O2 Sat by Pulse Oximetry: 100 (Room air) Pulse Ox Interpretation: Normal Medical Decision Making Medical Decision Making: Patient given gauze to bite on for hemostasis and continued to bleed. Surgicel applied to site and hemostasis achieved,. IV fluids and zofran administered. On reevaluation, patient reports improvement of symptoms, she is resting comfortably in no acute distress, vitals are stable, will discharge home with instructions to follow up with dentist. Disposition Counseled Patient/Family Regarding: Diagnosis, Need For Followup, Rx Given - Disposition Referrals: Hunter Hunt DO [Staff Provider] - Disposition: HOME/ ROUTINE Disposition Time: 05:42 Condition: STABLE Additional Instructions: Follow up with your Dentist or Oral surgeon Prescriptions: Ondansetron ODT [Zofran ODT] 1 odt PO BID PRN #6 odt PRN Reason: Nausea/Vomiting oxyCODONE/Acetaminophen [Percocet 5/325 mg Tab] 1 ea PO Q6 PRN #8 tab PRN Reason: Pain, Moderate (4-7) Instructions: Tooth Extraction (DC) Forms: [employer] (Georgian) - POA Present On Arrival: None - Clinical Impression Clinical Impression: S/P tooth extraction, Gingival bleeding, Mouth pain - PA / 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 - Scribe Statement The provider has reviewed the documentation as recorded by the Scribsuzanna Chris All medical record entries made by the Chioibsuzanna were at my direction and personally dictated by me. I have reviewed the chart and agree that the record accurately reflects my personal performance of the history, physical exam, medical decision making, and the department course for this patient. I have also personally directed, reviewed, and agree with the discharge instructions and disposition.
[2018-02-04] MEDS ORDERED: Sodium Chloride 0.9% 1,000 ML ONE (05:55)
[2018-02-04 07:20] VITALS: BP 116/71; PULSE 88; RESP 20; TEMP 98.8
[2018-02-04 20:11] VITALS: O2SAT 100
== END 2018-02-04 07:25 | disposition home or self-care (01) ==
LOC: C.ER 05:22
DX: K13.79 Other lesions of oral mucosa (principal); K08.409 Partial loss of teeth, unspecified cause, unspecified class; K06.8 Other specified disorders of gingiva and edentulous alveolar ridge; I10 Essential (primary) hypertension; Z72.0 Tobacco use
CPT/HCPCS: 96361; 96374; 99284; J2405; J7030

== ENCOUNTER 2018-06-29 00:50 | Emergency (ER) | payer OTHER ==
[2018-06-29 00:52] VITALS: BMI 34.9
[2018-06-29] MEDS ORDERED: Sodium Chloride 0.9% 1,000 ML IV ONE (01:25)
--- NOTE | 2018-06-29 01:25 | C.PDOC ---
History Of Present Illness 33 y/o female presents to the ED complaining of heavy vaginal bleeding over the last 6 days. Associated with abdominal cramping for the last 2-3 days. Patient developed nausea and vomiting today and also had a syncopal episode a couple hours prior to arrival. She reports suddenly feeling lightheaded and dizzy, and then lost consciousness and her caught her. There was no trauma. She denies any other injuries. Time Seen by Provider: 06/29/18 01:25 Chief Complaint (Nursing): Female Genitourinary History Per: Patient History/Exam Limitations: no limitations Onset/Duration Of Symptoms: Days Current Symptoms Are (Timing): Still Present Pain Scale Rating Of: 0 Recent travel outside of the [place]: No Additional History Per: Family Past Medical History Reviewed: Historical Data, Nursing Documentation, Vital Signs Vital Signs: Last Vital Signs Temp 99.1 F 06/29/18 01:03 Pulse 85 06/29/18 01:03 Resp 16 06/29/18 01:03 BP 99/61 L 06/29/18 01:03 Pulse Ox 99 06/29/18 01:03 - Medical History PMH: Anemia, Anxiety, Arthritis, Asthma, Back Problems, Depression, HTN Denies: Chronic Kidney Disease Surgical History: Tonsillectomy - [facility] Procedures EXCISION OF STOMACH, ENDO, DIAGN (12/04/16) INDIVIDUAL PSYCHOTHERAPY, SUPPORTIVE (12/04/16) Family History: States: Unknown Family Hx - Social History Hx Tobacco Use: Yes Hx Alcohol Use: Yes Hx Substance Use: No - Immunization History Hx Tetanus Toxoid Vaccination: No Hx Influenza Vaccination: No Hx Pneumococcal Vaccination: No Review Of Systems Constitutional: Negative for: Fever, Chills Eyes: Negative for: Vision Change Cardiovascular: Positive for: Light Headedness. Negative for: Chest Pain Respiratory: Negative for: Shortness of Breath Gastrointestinal: Negative for: Nausea, Vomiting Musculoskeletal: Negative for: Back Pain Skin: Negative for: Lesions Neurological: Positive for: Dizziness, Other (Syncopal episode). Negative for: Weakness, Numbness, Incoordination Physical Exam - Physical Exam Appears: Non-toxic, No Acute Distress Skin: Warm, Dry Head: Normacephalic Eye(s): bilateral: Normal Inspection Oral Mucosa: Dry Neck: Trachea Midline, Supple Chest: Symmetrical Cardiovascular: Rhythm Regular Respiratory: No Rales, No Rhonchi, No Wheezing Gastrointestinal/Abdominal: Soft, Tenderness (diffusely tender to palpation), No Guarding, No Rebound, Other (Heavy vaginal bleeding noted) Back: Normal Inspection Extremity: Normal ROM Extremity: Bilateral: Atraumatic, Normal Color And Temperature Pulses: Left Dorsalis Pedis: Normal, Right Dorsalis Pedis: Normal Neurological/Psych: Oriented x3 Gait: Steady ED Course And Treatment - Laboratory Results Result Diagrams: 06/29/18 02:24 06/29/18 02:24 O2 Sat by Pulse Oximetry: 99 (on RA) Pulse Ox Interpretation: Normal Progress Note: Blood work and urine sent. Patient given IVF hydration, 4 mg IV Zofran, and 20 mg IV Pepcid. transfusing 2 u prbc's. 3:[address] diane- color checker roving or yarn - she will see the patient after pelvic US is done. awaiting [facility] Critical Care Time - Critical Care Note Total Time (in mins): 30 Documented critical care: time excludes all time spent performing seperately billable procedures. Disposition Counseled Patient/Family Regarding: Studies Performed, Diagnosis - Disposition Disposition Time: 01:25 Condition: GUARDED Forms: [employer] (Maldivian) - Clinical Impression Clinical Impression: Severe anemia, Vaginal bleeding - Scribe Statement The provider has reviewed the documentation as recorded by the Sary Koehler Provider Attestation: All medical record entries made by the Chioibsuzanna were at my direction and personally dictated by me. I have reviewed the chart and agree that the record a ccurately reflects my personal performance of the history, physical exam, medical decision making, and the department course for this patient. I have also personally directed, reviewed, and agree with the discharge instructions and disposition. Physician Patient Turnover Patient Signed Over To: Diana Britt Handoff Comments: pending color checker roving or yarn consult
[2018-06-29 02:27] LABS: EOS % 0.6 % (0.0-4.0); LYMPH % 20.1 % (20.0-40.0); MEAN CELL VOLUME 78.3 fL (81.0-99.0); MEAN CORPUSCULAR HEMOGLOBIN 24.6 pg (27.0-31.0); MEAN CORPUSCULAR HGB CONC 31.4 g/dL (33.0-37.0); MEAN PLATELET VOLUME 9.4 fL (7.2-11.7); MONO # 0.3 K/uL (0.0-0.8); MONO % 6.4 % (0.0-10.0); NEUT # 3.5 K/uL (1.8-7.0); NEUT % 71.9 % (50.0-75.0); NRBC % 0.2 % (0.0-2.0); RBC 2.36 Mil/uL (3.80-5.20); RED CELL DISTRIBUTION WIDTH 25.4 % (11.5-14.5); WHITE BLOOD COUNT 4.8 K/uL (4.8-10.8)
[2018-06-29 02:32] LABS: HEMOGLOBIN 5.8 g/dL (11.0-16.0)
[2018-06-29 02:39] LABS: INR 1.8; PROTHROMBIN TIME 19.6 SECONDS (9.7-12.2)
[2018-06-29 02:41] LABS: ALB/GLOB RATIO 0.8 (1.0-2.1); ALBUMIN 2.7 g/dL (3.5-5.0); BLOOD UREA NITROGEN 6 mg/dL (7-17); CALCIUM 6.8 mg/dl (8.6-10.4); GFR NON-AFRICAN AMERICAN > 60
[2018-06-29 02:44] LABS: ALT/SGPT 33 U/L (9-52); AST/SGOT 105 U/L (14-36)
[2018-06-29 07:36] LABS: HCG,QUALITATIVE URINE NEGATIVE (NEGATIVE)
--- NOTE | 2018-06-29 07:57 | CP.PCM.CON ---
History of Present Illness - History of Present Illness History of Present Illness: PT IS 33YO PRESENTS TO THE ER WITH COMPLAINTS OF VAGINAL BLEEDING X 7 DAYS. PT STATES THAT SHE HAS ALWAYS HAD VAGINAL BLEEDING FOR MORE THAN 3 MONTHS. HER LMP: WAS May. SHE STATES THAT SHE HAD BEEN BLEEDING ABOUT TWICE A MONTH FOR 3 MONTHS. TODAY SHE IS ANEMIC 5.8 . SHE HAS A KNOWN HISTORY OF ANEMIA AND WAS SEEING HER PRIMARY PHYSICIAN WHO REFERRED HER TO HEMATOLOGY FOR WEEKLY IRON INFUSION. SHE STATES THAT OVER THE LAST 7 DAYS THE BLEEDING HAS GOTTEN WORSE AND SHE IS PASSING BLOOD CLOTS. SHE WAS ADVISED TO SEE HER SEMAPHORE OPERATOR PHYSICAN BUT WAS NOT ABLE TO FIND ONE THAT IS AFFILIATED WITH HER INSURANCE. POBHX: C/S X 2, TERMINATION X 1 PGYN: NONE PMHX: NONE PSHX: GASTRIC BYPASS 2000 SOCIAL NEGATIVE X 3 MEDS: NONE ALL: NKDA Review of Systems - Constitutional Constitutional: absent: As Per HPI, Anorexia, Chills, Daytime Sleepiness, Excessive Sweating, Fatigue, Fever, Frequent Falls, Headache, Increased Appetite, Lethargy, Malaise, Night Sweats, Snoring, Sleep Apnea, Weight Gain, Weight Loss, Weakness, Other - EENT Ears: absent: As Per HPI, Decreased Hearing, Ear Discharge, Ear Pain, Tinnitus, Abnormal Hearing, Disequilibrium, Dizziness, Other Nose/Mouth/Throat: absent: As Per HPI, Epistaxis, Nasal Congestion, Nasal Discharge, Nasal Obstruction, Nasal Trauma, Nose Pain, Post Nasal Drip, Sinus Pain, Sinus Pressure, Bleeding Gums, Change in Voice, Dental Pain, Dry Mouth, Dysphagia, Halitosis, Hoarsness, Lip Swelling, Mouth Lesions, Mouth Pain, Odynophagia, Sore Throat, Throat Swelling, Tongue Swelling, Facial Pain, Neck Pain, Neck Mass, Other - Breasts Breasts: absent: As Per HPI, Change in Shape, Mass, Pain, Nipple Discharge, Nipple Inversion, Skin Changes, Swelling, Other - Gastrointestinal Gastrointestinal: absent: As Per HPI, Abdominal Pain, Belching, Bloating, Change in Bowel Habits, Change in Stool Character, Coffee Ground Emesis, Constipation, Cramping, Diarrhea, Dyspepsia, Dysphagia, Early Satiety, Excessive Flatus, Fecal Incontinence, Heartburn, Hematemesis, Hematochezia, Loose Stools, Melena, Nausea, Odynophagia, Temesmus, Vomiting, Other - Genitourinary Genitourinary: Other (PT DECLINED VAGINAL/PELVIC EXAM.) - Menstruation Menstruation: absent: As Per HPI, Amenorrhea, Amenorrhea/ Control, Curren tly Menstual, Cycle <21 Days, Cycle >35 Days, Cycle Variable, Menses 1-7 Days, Menses >/= 8 Days, Menses Variable, Cycle > 4 Weeks Between, No Menses for 6 Months, Heavy Menses, Light Menses, Normal Menses, Spotting Between Cycles, S/P Hysterectomy, Menopausal, Post Menopausal, Premenarche, Abnormal Vaginal Bleeding, Dysmenorrhea, Other - Musculoskeletal Musculoskeletal: absent: As Per HPI, Abnormal Gait, Arthralgias, Atrophy, Back Pain, Deformity, Joint Swelling, Limited Range of Motion, Loss of Height, Muscle Cramps, Muscle Weakness, Myalgias, Neck Pain, Numbness, Radiating Pain into Limb, Stiffness, Tingling, Other - Integumentary Integumentary: absent: As Per HPI, Acne, Alopecia, Bleeding Lesions, Change in H air, Change in Nails, Change in Pigmentation, Changing Lesions, Dry Skin, Erythema, Furuncle, Hirsutism, Lesions, New Lesions, Non-Healing Lesions, Photosensitivity, Pruritus, Rash, Skin Pain, Skin Ulcer, Sores, Striae, Swelling, Unusual Bruising, Wounds, Jaundice, Other Past Patient History - Infectious Disease Hx of Infectious Diseases: None - Past Medical History & Family History Past Medical History?: No Past Family History: Reviewed and not pertinent - Past Social History Smoking Status: Never Smoked Chewing Tobacco Use: No Cigar Use: No Alcohol: None Drugs: Denies - CARDIAC Hx Hypertension: Yes - PULMONARY Hx Asthma: Yes - NEUROLOGICAL Hx Neurological Disorder: No Hx Alzheimer's Disease: No HX Cerebrovascular Accident: No Hx Dementia: No Hx Dizziness: No Hx Meningitis: No Hx Migraine: No Hx Paralysis: No Hx Parkinson's Disease: No Hx Seizures: No Hx Syncope: No Hx Transient Ischemic Attacks (TIA): No - HEENT Hx HEENT Problems: No Hx Blind: No Hx Cataracts: No Hx Deafness: No Hx Difficulty Chewing: No Hx Epistaxis: No Hx Glaucoma: No Hx Macular Degeneration: No Hx Sinusitis: No - RENAL Hx Chronic Kidney Disease: No Hx Dialysis: No Hx Kidney Stones: No Hx Neurogenic Bladder: No Hx Pyelonephritis: No Hx Renal (Kidney) Cancer: No - ENDOCRINE/METABOLIC Hx Endocrine Disorders: No - HEMATOLOGICAL/ONCOLOGICAL Hx Anemia: Yes - INTEGUMENTARY Hx Dermatological Problems: No - MUSCULOSKELETAL/RHEUMATOLOGICAL Hx Arthritis: Yes - GASTROINTESTINAL Hx Gastrointestinal Disorders: Yes Hx Fatty Liver Disease: Yes (H/O LIVER CIHRRHOSIS) Other/Comment: Liver Cirrhosis. Generalized Edema. Patient stated has fluid around spleen - GENITOURINARY/GYNECOLOGICAL Hx Genitourinary Disorders: No - PSYCHIATRIC Hx Anxiety: Yes Hx Depression: Yes Hx Substance Use: No - SURGICAL HISTORY Hx Tonsillectomy: Yes - ANESTHESIA Hx Anesthesia: Yes Hx Anesthesia Reactions: No Hx Malignant Hyperthermia: No Meds Allergies/Adverse Reactions: Allergies Allergy/AdvReac Type Severity Reaction Status Date / Time Penicillins Allergy Severe ANAPHYLAXIS Verified 02/04/18 05:30 - Medications Medications: Current Medications Estrogens Conjugated (Premarin Iv) 25 mg IV Q4 STA Stop: 06/29/18 07:49 Physical Exam - Constitutional Appears: Well - Head Exam Head Exam: ATRAUMATIC - Eye Exam Eye Exam: Conjunctival injection - ENT Exam ENT Exam: Mucous Membranes Dry - GI/Abdominal Exam Additional comments: PELVIC EXAM: DEFERRED. - Rectal Exam Rectal Exam: Deferred - Exam External exam: NORMAL EXTERNAL EXAM Speculum exam: NORMAL SPECULUM EXAM Bimanual exam: NORMAL BIMANUAL EXAM - Back Exam Back exam: NORMAL INSPECTION Results - Vital Signs Recent Vital Signs: Last Vital Signs Temp 99 F 06/29/18 07:35 Pulse 114 H 06/29/18 07:35 Resp 16 06/29/18 07:35 BP 119/69 06/29/18 07:35 Pulse Ox 98 06/29/18 07:35 - Labs Result Diagrams: 06/29/18 02:24 06/29/18 02:24 Labs: Laboratory Results - last 24 hr 06/29/18 06/29/18 06/29/18 02:24 02:24 02:24 WBC 4.8 RBC 2.36 L Hgb 5.8 L* D Hct 18.4 L MCV 78.3 L D MCH 24.6 L MCHC 31.4 L RDW 25.4 H Plt Count 74 L D MPV 9.4 Neut % (Auto) 71.9 Lymph % (Auto) 20.1 Holmes % (Auto) 6.4 Eos % (Auto) 0.6 Baso % (Auto) 1.0 Neut # (Auto) 3.5 Lymph # (Auto) 1.0 Holmes # (Auto) 0.3 Eos # (Auto) 0.0 Baso # (Auto) 0.0 Differential Comment PT 19.6 H INR 1.8 APTT 38 H Sodium 133 Potassium 4.3 Chloride 100 Carbon Dioxide 24 Anion Gap 14 BUN 6 L Creatinine 0.5 L Est GFR ( Amer) > 60 Est GFR (Non-Af Amer) > 60 Random Glucose 108 H Calcium 6.8 L Total Bilirubin 2.4 H AST 105 H D ALT 33 Alkaline Phosphatase 154 H D Total Protein 6.1 L Albumin 2.7 L D Globulin 3.5 Albumin/Globulin Ratio 0.8 L Beta HCG, Quant < 2.39 Urine HCG, Qual Blood Type Antibody Screen 06/29/18 06/29/18 02:24 07:09 WBC RBC Hgb Hct MCV MCH MCHC RDW Plt Count MPV Neut % (Auto) Lymph % (Auto) Holmes % (Auto) Eos % (Auto) Baso % (Auto) Neut # (Auto) Lymph # (Auto) Holmes # (Auto) Eos # (Auto) Baso # (Auto) Differential Comment PT INR APTT Sodium Potassium Chloride Carbon Dioxide Anion Gap BUN Creatinine Est GFR ( Amer) Est GFR (Non-Af Amer) Random Glucose Calcium Total Bilirubin AST ALT Alkaline Phosphatase Total Protein Albumin Globulin Albumin/Globulin Ratio Beta HCG, Quant Urine HCG, Qual Negative Blood Type B POSITIVE Antibody Screen Negative - Impressions Impression: 33 YO PRESENTS TODAY FOR ABNORMAL UTERINE BLEEDING -1) VSS: AFEBRILE 2) ANEMIA: HGB 5.8 -> TRANSFUSE BLOOD 3) VAGINAL BLEEDING: PT DEFERRED PELVIC EXAM: - PELVIC SONO: PENDING. -RECOMMENDED IV PREMARIN 25MG Q6 HOURS UNTIL BLEEDING STOPS. - MEDICATION FOR OUTPATIENT: TRANEXAMIC ACID 650 MG. 2 Tab PO TID X 5 DAYS. - FOLLOW UP WITH HER SEMAPHORE OPERATOR PHYSICIAN - IF PELVIC SONO IS NORMAL, DISCHARGE HOME.
[2018-06-29 08:20] LABS: URINE BILIRUBIN NEGATIVE (NEGATIVE); URINE BLOOD 3+ (NEGATIVE); URINE CLARITY Hazy (Clear); URINE COLOR Red (YELLOW); URINE GLUCOSE (UA) NORMAL (Normal); URINE LEUKOCYTE ESTERASE NEG Leu/uL (Negative); URINE PROTEIN 2+ mg/dL (NEGATIVE); URINE UROBILINOGEN NORMAL mg/dL (0.2-1.0)
[2018-06-29 09:19] VITALS: BP 108/70; PULSE 98; RESP 15; TEMP 99.6; O2SAT 100
--- NOTE | 2018-06-29 11:26 | US ---
Date of service: 06/29/2018 HISTORY: heavy vag bleed COMPARISON: Pelvic ultrasound performed 12/31/16 TECHNIQUE: Real-time transabdominal pelvic ultrasound was performed. In addition a transvaginal pelvic ultrasound was necessary to better depict pelvic anatomy. FINDINGS: UTERUS: Measures 8.5 x 4.4 x 4.9 cm. Anteverted ENDOMETRIUM: Measures 0.4 mm in diameter. CERVIX: Unremarkable. RIGHT OVARY: Measures 2.8 x 2.2 x 2.7 cm. Blood flow is demonstrated. LEFT OVARY: Measures 2.6 x 2.5 x 2.6 cm. Blood flow is demonstrated. FREE FLUID: No significant free fluid noted. OTHER FINDINGS: None. IMPRESSION: No acute findings identified. This examination is predicated on a negative test. Correlate clinically. Preliminary impression was provided by [facility].
== END 2018-06-29 10:18 | disposition home or self-care (01) ==
LOC: C.ER 00:50
DX: D64.9 Anemia, unspecified (principal); N93.9 Abnormal uterine and vaginal bleeding, unspecified; I10 Essential (primary) hypertension; Z72.0 Tobacco use
CPT/HCPCS: 36430; 76830; 76856; 80053; 81001; 84702; 84703; 85025; 85610; 85730; 86850; 86900; 86920; 96361; 96374; 96375; 96376; 99285; J1410; J2405; J2765; J7030; P9051

== ENCOUNTER 2018-07-02 10:06 | Inpatient (IN) | payer OTHER ==
[2018-07-02 10:20] VITALS: BMI 35.9
--- NOTE | 2018-07-02 10:40 | C.PDOC ---
History Of Present Illness 33 y/o female comes in complaining of vaginal bleeding and low hemoglobin. Patient was seen here over the weekend and was given blood for low hemoglobin. States she went to a clinic today to get iron infusion but they stated that her hemoglobin was lower than before so she was prompted to come here. Patient denies any abdominal pain, fever, chills, dysuria, or other symptoms. Patient reports weakness and dizziness. Patient states that since 06/24/18, her insurance changed and she currently has no PMD. Time Seen by Provider: 07/02/18 10:13 Chief Complaint (Nursing): Abnormal Labs History Per: Patient History/Exam Limitations: no limitations Onset/Duration Of Symptoms: Days Current Symptoms Are (Timing): Still Present Severity: Mild Reports Recently: Seen In ED Past Medical History Reviewed: Historical Data, Nursing Documentation, Vital Signs Vital Signs: Last Vital Signs Temp 98.6 F 07/02/18 10:11 Pulse 102 H 07/02/18 10:11 Resp 16 07/02/18 10:11 BP 107/67 07/02/18 10:11 Pulse Ox 100 07/02/18 10:11 - Medical History PMH: Anemia, Anxiety, Arthritis, Asthma, Back Problems, Depression, HTN Denies: Alzheimer's Disease, Kidney Stones, Migraine Surgical History: Tonsillectomy, - [facility] Procedures EXCISION OF STOMACH, ENDO, DIAGN (12/04/16) INDIVIDUAL PSYCHOTHERAPY, SUPPORTIVE (12/04/16) Family History: States: No Known Family Hx - Social History Hx Tobacco Use: Yes Hx Alcohol Use: Yes Hx Substance Use: No - Immunization History Hx Tetanus Toxoid Vaccination: No Hx Influenza Vaccination: Yes Hx Pneumococcal Vaccination: No Review Of Systems Except As Marked, All Systems Reviewed And Found Negative. Constitutional: Positive for: Weakness. Negative for: Fever, Chills Cardiovascular: Negative for: Chest Pain Respiratory: Negative for: Shortness of Breath Gastrointestinal: Negative for: Abdominal Pain, Diarrhea Genitourinary: Positive for: Vaginal Bleeding. Negative for: Dysuria Neurological: Positive for: Weakness Physical Exam - Physical Exam Appears: Non-toxic, No Acute Distress Skin: Pale Head: Atraumatic, Normacephalic Eye(s): bilateral: Normal Inspection Oral Mucosa: Moist Throat: Normal Neck: Supple Chest: Symmetrical Cardiovascular: Rhythm Regular, No Murmur Respiratory: Normal Breath Sounds, No Rales, No Rhonchi, No Wheezing Gastrointestinal/Abdominal: Soft, No Tenderness Pelvic: Vaginal Bleeding Extremity: Bilateral: Atraumatic, Normal Color And Temperature, Normal ROM Neurological/Psych: Oriented x3, Normal Speech Gait: Steady ED Course And Treatment - Laboratory Results Result Diagrams: 07/02/18 10:57 07/02/18 10:57 Lab Interpretation: Abnormal O2 Sat by Pulse Oximetry: 100 (RA) Pulse Ox Interpretation: Normal Progress Note: Treated with IVF NSS and ativan PO. 2 Units Blood ordered. Case discussed with [employer]HER signal person who request medical admission and will consult on patient Reassessment Condition: Unchanged - Physician Consult Information Physician Contacted: Elizabeth Garcia Outcome Of Conversation: admit Disposition Discussed With : Elizabeth Garcia Doctor Will See Patient In The: Hospital - Disposition Disposition: HOSPITALIZED Disposition Time: 13:00 Condition: STABLE - POA Present On Arrival: None - Clinical Impression Clinical Impression: Anemia, Vaginal bleeding - PA / CRNP / Resident Statement MD/DO has reviewed & agrees with the documentation as recorded. - Scribe Statement The provider has reviewed the documentation as recorded by the Scribe All medical record entries made by the Scribe were at my direction and personally dictated by me. I have reviewed the chart and agree that the record accurately reflects my personal performance of the history, physical exam, medical decision making, and the department course for this patient. I have also personally directed, reviewed, and agree with the discharge instructions and disposition. Decision To Admit - Pt Status Changed To: Hospital Disposition Of: Inpatient - Admit Certification Admit to Inpatient:: After my assessment, the patient will require hospitalization for at least two midnights. This is because of the severity of symptoms shown, intensity of services needed, and/or the medical risk in this patient being treated as an outpatient. - InPatient: Physician Admission Certification: I certify that this patient requires 2 or more midnights of care for the following reason:: symptomatic anemia. Vaginal bleeding - . Bed Request Type: Regular Admitting Physician: Elizabeth Garcia Patient Diagnosis: Anemia, Vaginal bleeding
[2018-07-02] MEDS ORDERED: Sodium Chloride 0.9% 1,000 ML IV ONE (10:45)
[2018-07-02] MEDS ORDERED: Sodium Chloride 0.9% 1,000 ML ONE ×2 (11:07→12:01)
[2018-07-02 11:15] LABS: BASO % 0.2 % (0.0-2.0); EOS # 0.1 K/uL (0.0-0.7); EOS % 0.9 % (0.0-4.0); LYMPH # 1.3 K/uL (1.0-4.3); LYMPH % 14.9 % (20.0-40.0); MEAN CORPUSCULAR HEMOGLOBIN 27.8 pg (27.0-31.0); MEAN CORPUSCULAR HGB CONC 32.6 g/dL (33.0-37.0); MEAN PLATELET VOLUME 9.6 fL (7.2-11.7); MONO # 0.9 K/uL (0.0-0.8); NEUT # 6.2 K/uL (1.8-7.0); NRBC % 0.5 % (0.0-2.0); RBC 1.74 Mil/uL (3.80-5.20); RED CELL DISTRIBUTION WIDTH 22.9 % (11.5-14.5)
[2018-07-02 11:22] LABS: HEMOGLOBIN 4.9 g/dL (11.0-16.0); MEAN CELL VOLUME 85.5 fL (81.0-99.0); WHITE BLOOD COUNT 8.5 K/uL (4.8-10.8)
[2018-07-02 11:32] LABS: ALB/GLOB RATIO 0.8 (1.0-2.1); ALBUMIN 2.4 g/dL (3.5-5.0); ALT/SGPT 34 U/L (9-52); AST/SGOT 83 U/L (14-36); BLOOD UREA NITROGEN 14 mg/dL (7-17); CALCIUM 6.8 mg/dl (8.6-10.4); GFR NON-AFRICAN AMERICAN > 60
[2018-07-02 12:13] LABS: SQUAMOUS EPITHIAL 1 /hpf (0-5); URINE BACTERIA MANY (<OCC); URINE BILIRUBIN NEGATIVE (NEGATIVE); URINE BLOOD 3+ (NEGATIVE); URINE CLARITY Clear (Clear); URINE GLUCOSE (UA) NORMAL (Normal); URINE LEUKOCYTE ESTERASE NEG Leu/uL (Negative); URINE PROTEIN 2+ mg/dL (NEGATIVE)
[2018-07-02 12:16] LABS: HCG,QUALITATIVE URINE NEGATIVE (NEGATIVE)
[2018-07-02 12:19] LABS: URINE COLOR LIGHT RED (YELLOW)
[2018-07-02] MEDS ORDERED: DiphenhydrAMINE 50 mg/ml Inj IVP STA (13:47)
[2018-07-02] MEDS ORDERED: DiphenhydrAMINE 50 mg/ml Inj ONE (13:56)
--- NOTE | 2018-07-02 15:53 | RAD ---
HISTORY: Code Stroke COMPARISON: Chest x-ray performed 09/30/17 TECHNIQUE: Chest, one view. FINDINGS: Examination limited by habitus. LUNGS: No focal consolidation. Bilateral hilar prominence. Please note that chest x-ray has limited sensitivity for the detection of pulmonary masses. PLEURA: No significant pleural effusion identified. No definite pneumothorax . CARDIOVASCULAR: Heart size appears within normal limits. No significant atherosclerotic calcification present. OSSEOUS STRUCTURES: No acute osseous abnormality identified. VISUALIZED UPPER ABDOMEN: Unremarkable. OTHER FINDINGS: None. IMPRESSION: No focal consolidation. Bilateral hilar prominence.
--- NOTE | 2018-07-02 21:06 | CP.PCM.HP ---
History of Present Illness - History of Present Illness History of Present Illness: pt came in for heavey vaginal bleeding severe aneamia required transfusion Present on Admission - Present on Admission Any Indicators Present on Admission: No Review of Systems - Review of Systems Systems not reviewed;Unavailable: Acuity of Condition - Constitutional Constitutional: Fatigue - EENT Eyes: As Per HPI Ears: As Per HPI Nose/Mouth/Throat: As Per HPI - Breasts Breasts: As Per HPI - Cardiovascular Cardiovascular: As Per HPI - Respiratory Respiratory: As Per HPI - Gastrointestinal Gastrointestinal: As Per HPI - Reproductive: Female Reproductive:Female: As Per HPI Additional comments: menorhgia - Menstruation Menstruation: Heavy Menses - Musculoskeletal Musculoskeletal: As Per HPI, Arthralgias Additional comments: hands hurts - Integumentary Integumentary: As Per HPI - Neurological Neurological: As Per HPI - Psychiatric Psychiatric: As Per HPI - Endocrine Endocrine: As Per HPI - Hematologic/Lymphatic Additional comments: severe aneamia Past Patient History - Infectious Disease Hx of Infectious Diseases: None - Past Medical History & Family History Past Medical History?: No - Past Social History Smoking Status: Never Smoked - CARDIAC Hx Hypertension: Yes - PULMONARY Hx Asthma: Yes - NEUROLOGICAL Hx Alzheimer's Disease: No Hx Migraine: No - HEENT Hx HEENT Problems: No Hx Blind: No Hx Cataracts: No Hx Deafness: No Hx Difficulty Chewing: No Hx Epistaxis: No Hx Glaucoma: No Hx Macular Degeneration: No - RENAL Hx Kidney Stones: No - ENDOCRINE/METABOLIC Hx Endocrine Disorders: No - HEMATOLOGICAL/ONCOLOGICAL Hx Anemia: Yes - INTEGUMENTARY Hx Dermatological Problems: No - MUSCULOSKELETAL/RHEUMATOLOGICAL Hx Arthritis: Yes - GASTROINTESTINAL Hx Gastrointestinal Disorders: Yes Hx Fatty Liver Disease: Yes (H/O LIVER CIHRRHOSIS) Other/Comment: Liver Cirrhosis. Generalized Edema. Patient stated has fluid around spleen - GENITOURINARY/GYNECOLOGICAL Hx Genitourinary Disorders: No - PSYCHIATRIC Hx Anxiety: Yes Hx Depression: Yes Hx Substance Use: No - SURGICAL HISTORY Hx Tonsillectomy: Yes - ANESTHESIA Hx Anesthesia: Yes Hx Anesthesia Reactions: No Hx Malignant Hyperthermia: No Meds Allergies/Adverse Reactions: Allergies Allergy/AdvReac Type Severity Reaction Status Date / Time Penicillins Allergy Severe ANAPHYLAXIS Verified 07/02/18 10:19 Results - Vital Signs Recent Vital Signs: Last Vital Signs Temp 98.6 F 07/02/18 18:15 Pulse 88 07/02/18 18:15 Resp 18 07/02/18 18:15 BP 100/60 07/02/18 18:15 Pulse Ox 97 07/02/18 18:15 - Labs Result Diagrams: 07/02/18 10:57 07/02/18 10:57 Labs: Laboratory Results - last 24 hr 07/02/18 07/02/18 07/02/18 10:57 10:57 10:57 WBC 8.5 D RBC 1.74 L Hgb 4.9 L* Hct 14.9 L MCV 85.5 D MCH 27.8 MCHC 32.6 L RDW 22.9 H Plt Count 140 MPV 9.6 Neut % (Auto) 73.0 Lymph % (Auto) 14.9 L Upton % (Auto) 11.0 H Eos % (Auto) 0.9 Baso % (Auto) 0.2 Neut # (Auto) 6.2 Lymph # (Auto) 1.3 Upton # (Auto) 0.9 H Eos # (Auto) 0.1 Baso # (Auto) 0.0 Smear Path Review Sodium 127 L Potassium 4.0 Chloride 95 L Carbon Dioxide 24 Anion Gap 12 BUN 14 Creatinine 0.6 L Est GFR ( Amer) > 60 Est GFR (Non-Af Amer) > 60 Random Glucose 99 Calcium 6.8 L Total Bilirubin 4.4 H AST 83 H D ALT 34 Alkaline Phosphatase 128 H Total Protein 5.6 L Albumin 2.4 L Globulin 3.2 Albumin/Globulin Ratio 0.8 L Urine Color Urine Clarity Urine pH Ur Specific Delmar Urine Protein Urine Glucose (UA) Urine Ketones Urine Blood Urine Nitrate Urine Bilirubin Urine Urobilinogen Ur Leukocyte Esterase Urine WBC (Auto) Urine RBC (Auto) Ur Squamous Epith Cells Urine Bacteria Urine HCG, Qual Blood Type B POSITIVE Antibody Screen Negative 07/02/18 11:47 WBC RBC Hgb Hct MCV MCH MCHC RDW Plt Count MPV Neut % (Auto) Lymph % (Auto) [place] % (Auto) Eos % (Auto) Baso % (Auto) Neut # (Auto) Lymph # (Auto) [place] # (Auto) Eos # (Auto) Baso # (Auto) Smear Path Review Sodium Potassium Chloride Carbon Dioxide Anion Gap BUN Creatinine Est GFR ( Amer) Est GFR (Non-Af Amer) Random Glucose Calcium Total Bilirubin AST ALT Alkaline Phosphatase Total Protein Albumin Globulin Albumin/Globulin Ratio Urine Color Light red Urine Clarity Clear Urine pH 6.0 Ur Specific [place] 1.008 Urine Protein 2+ H Urine Glucose (UA) Normal Urine Ketones Negative Urine Blood 3+ H Urine Nitrate Positive H Urine Bilirubin Negative Urine Urobilinogen 4.0 H Ur Leukocyte Esterase Neg Urine WBC (Auto) 13 H Urine RBC (Auto) 187 H Ur Squamous Epith Cells 1 Urine Bacteria Many H Urine HCG, Qual Negative Blood Type Antibody Screen Assessment & Plan - Assessment and Plan (Free Text) Assessment: severe aneamia menorhgia Plan: transfusion repeate lab - Date & Time Date: 07/02/18 Time: 21:07
[2018-07-02] MEDS: Ciprofloxacin 400mg/200ml D5W 400 MG/200 ML BAG IVPB SCH (21:50)
[2018-07-03 08:21] LABS: BASO % 0.4 % (0.0-2.0); EOS # 0.1 K/uL (0.0-0.7); EOS % 2.3 % (0.0-4.0); LYMPH # 1.1 K/uL (1.0-4.3); LYMPH % 21.1 % (20.0-40.0); MEAN CELL VOLUME 84.5 fL (81.0-99.0); MEAN CORPUSCULAR HEMOGLOBIN 28.8 pg (27.0-31.0); MEAN CORPUSCULAR HGB CONC 34.1 g/dL (33.0-37.0); MEAN PLATELET VOLUME 9.1 fL (7.2-11.7); MONO # 0.6 K/uL (0.0-0.8); MONO % 11.6 % (0.0-10.0); NEUT # 3.4 K/uL (1.8-7.0); NEUT % 64.6 % (50.0-75.0); NRBC % 0.5 % (0.0-2.0); RBC 2.1 Mil/uL (3.80-5.20); RED CELL DISTRIBUTION WIDTH 19.2 % (11.5-14.5); WHITE BLOOD COUNT 5.3 K/uL (4.8-10.8)
--- NOTE | 2018-07-03 09:03 | CP.PCM.CON ---
History of Present Illness - History of Present Illness History of Present Illness: Bowen Gutierrez DO, PGY-1 Gynecology Consult Note for Dr. Diego 33 year old female, [id number], LMP 06/23/18, with a past medical history of microcytic anemia (2/2 menometorrhagia), asthma, anxiety/depression, arthritis, and HTN who presented to ED for persistent menorrhagia with associated lightheadedness, low back and abdominal cramping since 06/23/2018. Patient states that she was at the clinic for her weekly iron transfusion, during which time she was found to have low hemoglobin, and was told to present to the ED. She was seen on 06/29/2018 for similar complaints; she was given 2 units of PRBC, IV Premarin. Pelvic US showed no fibroids or other concerning masses. She was discharged with Tranexamic Acid and recommended to f/u with card grinder. She expresses that she was unable to fill prescribed provera because it was too expensive. She recently changed insurance and does not have a regular card grinder. Denies history of fibroids, cysts, fever, chills, cough, congestion, N/V/D, CP, SOB, and MEDELLIN. No other acute complaints. Patient states that she developed anemia after her 1st . She has been receiving weekly iron transfusions for the past 5-6 years. 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 Lives at home with son, daughter, and boyfriend. 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 Allergies: penicillin Medications: was previously on gabapentin, tramadol for pain, Xanax 0.25 mg HS PRN for anxiety, trazodone 50 mg HS Review of Systems - Constitutional Constitutional: absent: Chills, Fever - Cardiovascular Cardiovascular: absent: Chest Pain, Dyspnea - Respiratory Respiratory: absent: Cough, Dyspnea - Gastrointestinal Gastrointestinal: absent: Abdominal Pain, Nausea, Vomiting - Reproductive: Female Reproductive:Female: Menses >/= 8 Days, Heavy Menses, Abnormal Vaginal Bleeding. absent: Dyspareunia, Vaginal Discharge, Vaginal Dryness, Vaginal Odor - Menstruation Menstruation: Menses >/= 8 Days, Heavy Menses, Abnormal Vaginal Bleeding, Dysmenorrhea Past Patient History - Infectious Disease Hx of Infectious Diseases: None - Past Medical History & Family History Past Medical History?: No - Past Social History Smoking Status: Never Smoked - CARDIAC Hx Hypertension: Yes - PULMONARY Hx Asthma: Yes - NEUROLOGICAL Hx Alzheimer's Disease: No Hx Migraine: No - HEENT Hx HEENT Problems: No Hx Blind: No Hx Cataracts: No Hx Deafness: No Hx Difficulty Chewing: No Hx Epistaxis: No Hx Glaucoma: No Hx Macular Degeneration: No - RENAL Hx Kidney Stones: No - ENDOCRINE/METABOLIC Hx Endocrine Disorders: No - HEMATOLOGICAL/ONCOLOGICAL Hx Anemia: Yes - INTEGUMENTARY Hx Dermatological Problems: No - MUSCULOSKELETAL/RHEUMATOLOGICAL Hx Arthritis: Yes - GASTROINTESTINAL Hx Gastrointestinal Disorders: Yes Hx Fatty Liver Disease: Yes (H/O LIVER CIHRRHOSIS) Other/Comment: Liver Cirrhosis. Generalized Edema. Patient stated has fluid around spleen - GENITOURINARY/GYNECOLOGICAL Hx Genitourinary Disorders: No - PSYCHIATRIC Hx Anxiety: Yes Hx Depression: Yes Hx Substance Use: No - SURGICAL HISTORY Hx Tonsillectomy: Yes - ANESTHESIA Hx Anesthesia: Yes Hx Anesthesia Reactions: No Hx Malignant Hyperthermia: No Meds Allergies/Adverse Reactions: Allergies Allergy/AdvReac Type Severity Reaction Status Date / Time Penicillins Allergy Severe ANAPHYLAXIS Verified 07/02/18 10:19 - Medications Medications: Current Medications Acetaminophen (Tylenol 325mg Tab) 650 mg PO Q8H PRN PRN Reason: fever >100.0 Last Admin: 07/02/18 15:51 Dose: 650 mg Acetaminophen (Tylenol 325mg Tab) 650 mg PO Q8 PRN PRN Reason: Pain, Mild (1-3) Last Admin: 07/02/18 21:45 Dose: 650 mg Alprazolam (Xanax) 0.25 mg PO HS [facility] Stop: 07/09/18 22:01 Last Admin: 07/02/18 21:44 Dose: 0.25 mg Ferrous Sulfate (Feosol) 325 mg PO DAILY [facility] Ciprofloxacin (Cipro 400mg/200ml Dsw) 400 mg in 200 mls @ 133 mls/hr IVPB Q12H [facility]; Protocol Last Admin: 07/02/18 21:50 Dose: 133 mls/hr Medroxyprogesterone Acetate (Provera) 10 mg PO DAILY [facility] Stop: 07/09/18 10:01 Multivitamins (Hexavitamin) 1 tab PO DAILY [facility] Physical Exam - Constitutional Appears: Non-toxic, No Acute Distress - Head Exam Head Exam: ATRAUMATIC, NORMOCEPHALIC - Eye Exam Eye Exam: EOMI, Normal appearance, PERRL - ENT Exam ENT Exam: Mucous Membranes Moist - Neck Exam Neck exam: Positive for: Full Rom, Normal Inspection - Respiratory Exam Respiratory Exam: Clear to Auscultation Bilateral, NORMAL BREATHING PATTERN. absent: Rales, Rhonchi, Wheezes - Cardiovascular Exam Cardiovascular Exam: REGULAR RHYTHM, RRR, +S1, +S2. absent: Gallop, Rubs, Systolic Murmur - GI/Abdominal Exam GI & Abdominal Exam: Soft. absent: Tenderness - Exam External exam: NORMAL EXTERNAL EXAM. absent: Lacerations, Lesions Speculum exam: NORMAL SPECULUM EXAM Bimanual exam: NORMAL BIMANUAL EXAM - Extremities Exam Extremities exam: Positive for: normal inspection. Negative for: pedal edema - Back Exam Back exam: FULL ROM, NORMAL INSPECTION - Neurological Exam Neurological exam: Alert, Oriented x3 - Psychiatric Exam Psychiatric exam: Normal Affect, Normal Mood Results - Vital Signs Recent Vital Signs: Last Vital Signs Temp 97.7 F 07/03/18 08:18 Pulse 87 07/03/18 08:18 Resp 20 07/03/18 08:18 BP 96/40 L 07/03/18 08:18 Pulse Ox 100 07/03/18 08:18 - Labs Result Diagrams: 07/03/18 07:59 07/02/18 10:57 Labs: Laboratory Results - last 24 hr 07/02/18 07/02/18 07/02/18 10:57 10:57 10:57 WBC 8.5 D RBC 1.74 L Hgb 4.9 L* Hct 14.9 L MCV 85.5 D MCH 27.8 MCHC 32.6 L RDW 22.9 H Plt Count 140 MPV 9.6 Neut % (Auto) 73.0 Lymph % (Auto) 14.9 L [place] % (Auto) 11.0 H Eos % (Auto) 0.9 Baso % (Auto) 0.2 Neut # (Auto) 6.2 Lymph # (Auto) 1.3 [place] # (Auto) 0.9 H Eos # (Auto) 0.1 Baso # (Auto) 0.0 Smear Path Review Sodium 127 L Potassium 4.0 Chloride 95 L Carbon Dioxide 24 Anion Gap 12 BUN 14 Creatinine 0.6 L Est GFR ( Amer) > 60 Est GFR (Non-Af Amer) > 60 Random Glucose 99 Calcium 6.8 L Total Bilirubin 4.4 H AST 83 H D ALT 34 Alkaline Phosphatase 128 H Total Protein 5.6 L Albumin 2.4 L Globulin 3.2 Albumin/Globulin Ratio 0.8 L Urine Color Urine Clarity Urine pH Ur Specific [place] Urine Protein Urine Glucose (UA) Urine Ketones Urine Blood Urine Nitrate Urine Bilirubin Urine Urobilinogen Ur Leukocyte Esterase Urine WBC (Auto) Urine RBC (Auto) Ur Squamous Epith Cells Urine Bacteria Urine HCG, Qual Blood Type B POSITIVE Antibody Screen Negative 07/02/18 07/03/18 11:47 07:59 WBC 5.3 RBC 2.10 L Hgb 6.0 L* Hct 17.7 L MCV 84.5 MCH 28.8 MCHC 34.1 RDW 19.2 H Plt Count 121 L MPV 9.1 Neut % (Auto) 64.6 Lymph % (Auto) 21.1 [place] % (Auto) 11.6 H Eos % (Auto) 2.3 Baso % (Auto) 0.4 Neut # (Auto) 3.4 Lymph # (Auto) 1.1 [place] # (Auto) 0.6 Eos # (Auto) 0.1 Baso # (Auto) 0.0 Smear Path Review Sodium Potassium Chloride Carbon Dioxide Anion Gap BUN Creatinine Est GFR ( Amer) Est GFR (Non-Af Amer) Random Glucose Calcium Total Bilirubin AST ALT Alkaline Phosphatase Total Protein Albumin Globulin Albumin/Globulin Ratio Urine Color Light red Urine Clarity Clear Urine pH 6.0 Ur Specific [place] 1.008 Urine Protein 2+ H Urine Glucose (UA) Normal Urine Ketones Negative Urine Blood 3+ H Urine Nitrate Positive H Urine Bilirubin Negative Urine Urobilinogen 4.0 H Ur Leukocyte Esterase Neg Urine WBC (Auto) 13 H Urine RBC (Auto) 187 H Ur Squamous Epith Cells 1 Urine Bacteria Many H Urine HCG, Qual Negative Blood Type Antibody Screen Assessment & Plan - Assessment and Plan (Free Text) Assessment: 33 yo F [id number] with PMH of microcytic anemia (2/2 menometorrhagia), asthma, anxiety/depression, arthritis, and HTN presented with menometorrhagia and symptoms of light-headedness related to acute blood loss. She was found to have H/H of 4.9/14 on admission. Plan: Acute blood loss anemia 2/2 menometorrhagia She is now s/p 2 u of PRBCs Repeat H/H after transfusion is 12/08.7 Will transfuse another unit of PRBCs and repeat H/H about four hours after Start provera 20 mg as patient is still bleeding Start with one time dose and repeat 20 mg dose if needed, then 10 mg daily thereafter Patient seen, examined, and plan discussed with Dr. Johnathon Gutierrez DO IM Resident PGY-1
[2018-07-03] MEDS: Multiple Vitamins Tab PO SCH (09:47)
[2018-07-03] MEDS: Ciprofloxacin 400mg/200ml D5W 400 MG/200 ML BAG IVPB SCH ×2 (09:50→22:23)
[2018-07-03 16:56] LABS: BASO % 0.6 % (0.0-2.0); EOS # 0.2 K/uL (0.0-0.7); EOS % 2.5 % (0.0-4.0); HEMOGLOBIN 7.6 g/dL (11.0-16.0); LYMPH # 1.6 K/uL (1.0-4.3); LYMPH % 20.8 % (20.0-40.0); MEAN CELL VOLUME 86.1 fL (81.0-99.0); MEAN CORPUSCULAR HEMOGLOBIN 27.7 pg (27.0-31.0); MEAN CORPUSCULAR HGB CONC 32.1 g/dL (33.0-37.0); MEAN PLATELET VOLUME 8.9 fL (7.2-11.7); MONO % 12.2 % (0.0-10.0); NEUT # 5.1 K/uL (1.8-7.0); NEUT % 63.9 % (50.0-75.0); NRBC % 1.4 % (0.0-2.0); RBC 2.75 Mil/uL (3.80-5.20); WHITE BLOOD COUNT 7.9 K/uL (4.8-10.8)
--- NOTE | 2018-07-03 19:38 | CP.PCM.PN ---
Subjective - Date & Time of Evaluation Date of Evaluation: 07/03/18 Time of Evaluation: 19:36 - Subjective Subjective: pt feels weeke still aneamia geting aguiar transfusion Objective - Vital Signs/Intake and Output Vital Signs (last 24 hours): Temp Pulse Resp BP Pulse Ox 100.7 F H 106 H 22 111/53 L 100 07/03/18 16:00 07/03/18 16:00 07/03/18 16:00 07/03/18 16:00 07/03/18 16:00 - Medications Medications: Current Medications Acetaminophen (Tylenol 325mg Tab) 650 mg PO Q8H PRN PRN Reason: fever >100.0 Last Admin: 07/02/18 15:51 Dose: 650 mg Acetaminophen (Tylenol 325mg Tab) 650 mg PO Q8 PRN PRN Reason: Pain, Mild (1-3) Last Admin: 07/03/18 09:48 Dose: 650 mg Alprazolam (Xanax) 0.25 mg PO Q8H PRN PRN Reason: Anxiety Stop: 07/10/18 14:09 Last Admin: 07/03/18 14:47 Dose: 0.25 mg Ferrous Sulfate (Feosol) 325 mg PO DAILY [facility] Last Admin: 07/03/18 09:46 Dose: 325 mg Ciprofloxacin (Cipro 400mg/200ml Dsw) 400 mg in 200 mls @ 133 mls/hr IVPB Q12H [facility]; Protocol Last Admin: 07/03/18 09:50 Dose: 133 mls/hr Medroxyprogesterone Acetate (Provera) 10 mg PO BID [facility] Multivitamins (Hexavitamin) 1 tab PO DAILY [facility] Last Admin: 07/03/18 09:47 Dose: 1 tab Trazodone HCl (Desyrel) 50 mg PO HS [facility] - Labs Labs: 07/03/18 16:45 07/02/18 10:57 - Constitutional Appears: Non-toxic - Head Exam Head Exam: NORMAL INSPECTION - Eye Exam Eye Exam: Normal appearance Pupil Exam: NORMAL ACCOMODATION - ENT Exam ENT Exam: Mucous Membranes Moist - Neck Exam Neck Exam: Normal Inspection - Respiratory Exam Respiratory Exam: Clear to Ausculation Bilateral - Cardiovascular Exam Cardiovascular Exam: REGULAR RHYTHM - GI/Abdominal Exam GI & Abdominal Exam: Normal Bowel Sounds - Extremities Exam Extremities Exam: Normal Inspection - Back Exam Back Exam: NORMAL INSPECTION - Neurological Exam Neurological Exam: Alert, Awake, Oriented x3 - Psychiatric Exam Psychiatric exam: Normal Mood - Skin Skin Exam: Pallor Assessment and Plan - Assessment and Plan (Free Text) Assessment: required transfusion menorhgia Plan: as per orders
--- NOTE | 2018-07-04 10:15 | CP.PCM.PN ---
Subjective - Date & Time of Evaluation Date of Evaluation: 07/04/18 Time of Evaluation: 10:12 - Subjective Subjective: c/o of abdominal pain Objective - Vital Signs/Intake and Output Vital Signs (last 24 hours): Temp Pulse Resp BP Pulse Ox 98.9 F 93 H 20 118/60 100 07/04/18 00:00 07/04/18 00:00 07/04/18 00:00 07/04/18 00:00 07/04/18 00:00 - Medications Medications: Current Medications Acetaminophen (Tylenol 325mg Tab) 650 mg PO Q8H PRN PRN Reason: fever >100.0 Last Admin: 07/02/18 15:51 Dose: 650 mg Acetaminophen (Tylenol 325mg Tab) 650 mg PO Q8 PRN PRN Reason: Pain, Mild (1-3) Last Admin: 07/03/18 09:48 Dose: 650 mg Alprazolam (Xanax) 0.25 mg PO Q8H PRN PRN Reason: Anxiety Stop: 07/10/18 14:09 Last Admin: 07/03/18 14:47 Dose: 0.25 mg Ferrous Sulfate (Feosol) 325 mg PO DAILY [facility] Last Admin: 07/04/18 09:19 Dose: 325 mg Medroxyprogesterone Acetate (Provera) 10 mg PO BID [facility] Last Admin: 07/04/18 09:19 Dose: 10 mg Multivitamins (Hexavitamin) 1 tab PO DAILY [facility] Last Admin: 07/03/18 09:47 Dose: 1 tab Trazodone HCl (Desyrel) 50 mg PO [facility] Last Admin: 07/03/18 22:24 Dose: 50 mg - Labs Labs: 07/03/18 16:45 07/02/18 10:57 - Constitutional Appears: Non-toxic, In Acute Distress - Head Exam Head Exam: ATRAUMATIC - Eye Exam Eye Exam: Normal appearance - ENT Exam ENT Exam: Mucous Membranes Moist - Neck Exam Neck Exam: Full ROM - Respiratory Exam Respiratory Exam: Clear to Ausculation Bilateral - Cardiovascular Exam Cardiovascular Exam: REGULAR RHYTHM - GI/Abdominal Exam GI & Abdominal Exam: Tenderness - Extremities Exam Extremities Exam: Normal Inspection - Back Exam Back Exam: NORMAL INSPECTION - Neurological Exam Neurological Exam: Normal Gait - Psychiatric Exam Psychiatric exam: Normal Affect - Skin Skin Exam: Pallor Assessment and Plan - Assessment and Plan (Free Text) Assessment: ac abdominal pain aneamia menorhgia Plan: as per orders
[2018-07-04 10:30] LABS: BASO % 0.7 % (0.0-2.0); EOS # 0.1 K/uL (0.0-0.7); EOS % 2.6 % (0.0-4.0); HEMOGLOBIN 7.8 g/dL (11.0-16.0); LYMPH % 19.6 % (20.0-40.0); MEAN CELL VOLUME 85.3 fL (81.0-99.0); MEAN CORPUSCULAR HEMOGLOBIN 28.3 pg (27.0-31.0); MEAN CORPUSCULAR HGB CONC 33.1 g/dL (33.0-37.0); MEAN PLATELET VOLUME 8.5 fL (7.2-11.7); MONO # 0.6 K/uL (0.0-0.8); MONO % 12.5 % (0.0-10.0); NEUT # 3.1 K/uL (1.8-7.0); NEUT % 64.6 % (50.0-75.0); NRBC % 0.4 % (0.0-2.0); RBC 2.77 Mil/uL (3.80-5.20); RED CELL DISTRIBUTION WIDTH 18.2 % (11.5-14.5); WHITE BLOOD COUNT 4.9 K/uL (4.8-10.8)
[2018-07-04 11:23] LABS: ALB/GLOB RATIO 0.7 (1.0-2.1); ALBUMIN 2.1 g/dL (3.5-5.0); ALT/SGPT 32 U/L (9-52); AMYLASE 44 U/L (30-110); AST/SGOT 58 U/L (14-36); BLOOD UREA NITROGEN 9 mg/dL (7-17); CALCIUM 6.6 mg/dl (8.6-10.4); GFR NON-AFRICAN AMERICAN > 60; LIPASE 260 U/L (23-300)
--- NOTE | 2018-07-04 12:11 | CT ---
Date of service: 07/04/2018 PROCEDURE: CT Abdomen and Pelvis without intravenous contrast HISTORY: abdominal pain COMPARISON: 11/10/2017 TECHNIQUE: Without contrast.. Contrast dose: 0 Radiation dose: Total exam DLP = 1255.11 mGy-cm. This CT exam was performed using one or more of the following dose reduction techniques: Automated exposure control, adjustment of the mA and/or kV according to patient size, and/or use of iterative reconstruction technique. FINDINGS: LOWER THORAX: No infiltrate. Linear scar/atelectasis in left lower lobe. LIVER: Nodular contour. Heterogeneous attenuation. No discrete mass on this noncontrast examination. Consistent with hepatic cirrhosis. No intrahepatic biliary ductal dilatation. Mild hepatomegaly. GALLBLADDER AND BILE DUCTS: Gallbladder wall diffusely thickened. Nonspecific. Possibly related to hepatic cirrhosis. Tiny dependent calculi versus milk of calcium bile within gallbladder. Pericholecystic fluid in a setting of generalized ascites. Nonspecific PANCREAS: There is hazy increased attenuation of the peripancreatic fat consistent with acute pancreatitis. No pancreatic mass identified on this noncontrast examination. No pancreatic ductal dilatation seen. No discrete peripancreatic fluid collection. SPLEEN: Splenomegaly. The spleen measures up to 15.3 cm greatest dimension. No mass. ADRENALS: Unremarkable. No mass. KIDNEYS AND URETERS: Unremarkable. No hydronephrosis. No solid mass. VASCULATURE: Unremarkable. No aortic aneurysm. No aortic atherosclerotic calcification or mural plaque present. BOWEL: Status post gastric bypass surgery. Gastrojejunostomy and jejunojejunostomy are grossly unremarkable. No free air. No evidence of bowel obstruction. There is fluid seen within the excluded portion of the stomach. APPENDIX: Not identified. No secondary findings to suggest acute appendicitis however. PERITONEUM: Mild ascites. Mildly heterogeneous ascites seen in the pelvis, of uncertain significance. Please note that recent pelvic ultrasound of 06/29/2018 did not demonstrate evidence of ascites. Recommend repeat pelvic ultrasound examination for evaluation of this pelvic ascites fluid. Examination. LYMPH NODES: Unremarkable. No enlarged lymph nodes. BLADDER: Poorly distended. No gross abnormality. REPRODUCTIVE: Unremarkable uterus and ovaries. BONES: No acute fracture. OTHER FINDINGS: None. IMPRESSION: Hepatic cirrhosis. Hepatosplenomegaly. Ascites. Diffusely thickened gallbladder wall with tiny dependent calculi versus milk of calcium bile. Nonspecific. Mild heterogeneity of the ascites fluid seen in the pelvis common nonspecific. Consider correlation with transvaginal pelvic ultrasound. Findings consistent with acute pancreatitis. Please correlate with clinical and laboratory evaluation.
[2018-07-04] MEDS: Multiple Vitamins Tab PO SCH (13:19)
--- NOTE | 2018-07-04 20:09 | CP.PCM.PN ---
Subjective - Date & Time of Evaluation Date of Evaluation: 07/04/18 Time of Evaluation: 18:00 - Subjective Subjective: Pt seen and examined States that her vaginal bleeding has almost stop completely Advised to follow with OBGYN inmediately for definitive treatment of her DUB upon discharge and verbalized understanding Will give Rx for Provera 10 mg po daily upon discharge Aware of repeated H&H after transfusion still low Also aware of Ct Scan performed today and ? Acute Pancreatitis/ on report D/W with Dr. Garcia phone and agree on transfusing a couple of units more and also to consult GI for further evaluation Pt aware of this decisiion and verbalized understanding and agreed. Objective - Vital Signs/Intake and Output Vital Signs (last 24 hours): Temp Pulse Resp BP Pulse Ox 97.7 F 100 H 18 106/55 L 100 07/04/18 16:00 07/04/18 16:00 07/04/18 16:00 07/04/18 16:00 07/04/18 16:00 - Medications Medications: Current Medications Acetaminophen (Tylenol 325mg Tab) 650 mg PO Q8H PRN PRN Reason: fever >100.0 Last Admin: 07/04/18 16:17 Dose: 650 mg Acetaminophen (Tylenol 325mg Tab) 650 mg PO Q8 PRN PRN Reason: Pain, Mild (1-3) Last Admin: 07/03/18 09:48 Dose: 650 mg Alprazolam (Xanax) 0.25 mg PO Q8H PRN PRN Reason: Anxiety Stop: 07/10/18 14:09 Last Admin: 07/03/18 14:47 Dose: 0.25 mg Ferrous Sulfate (Feosol) 325 mg PO DAILY [facility] Last Admin: 07/04/18 09:19 Dose: 325 mg Medroxyprogesterone Acetate (Provera) 10 mg PO BID [facility] Last Admin: 07/04/18 18:08 Dose: 10 mg Multivitamins (Hexavitamin) 1 tab PO DAILY [facility] Last Admin: 07/04/18 13:19 Dose: Not Given Trazodone HCl (Desyrel) 50 mg PO HS [facility] Last Admin: 07/03/18 22:24 Dose: 50 mg - Labs Labs: 07/04/18 10:27 07/04/18 10:27
[2018-07-05] MEDS: Multiple Vitamins Tab PO SCH (09:13)
--- NOTE | 2018-07-05 10:10 | CP.PCM.CON ---
History of Present Illness - History of Present Illness History of Present Illness: GI Service Consult cc: abdominal pain HPI: 33 yr old woman admittted for severe vaginal bleeding with severe anemia. Managed by Recording Engineer. Was to be discharged but began complaining of abdominal pain in upper abdomen. CT scan showed cirrhosis and acute pancreatitis. Lipase/Amylase WNL. Pain resolved with BMs x 3 last night. Daily wine drinker. EGD by Dr Reed in 2016, and again in September 2017- gastritis, gastric bypass surgery, NO varices. Denies symptoms of GI bleeding. Examined with RN present. Past Patient History - Infectious Disease Hx of Infectious Diseases: None - Past Medical History & Family History Past Medical History?: No - Past Social History Smoking Status: Never Smoked Alcohol: > 2 Drinks/Day - CARDIAC Hx Hypertension: Yes - PULMONARY Hx Asthma: Yes - NEUROLOGICAL Hx Alzheimer's Disease: No Hx Migraine: No - HEENT Hx HEENT Problems: No Hx Blind: No Hx Cataracts: No Hx Deafness: No Hx Difficulty Chewing: No Hx Epistaxis: No Hx Glaucoma: No Hx Macular Degeneration: No - RENAL Hx Kidney Stones: No - ENDOCRINE/METABOLIC Hx Endocrine Disorders: No - HEMATOLOGICAL/ONCOLOGICAL Hx Anemia: Yes - INTEGUMENTARY Hx Dermatological Problems: No - MUSCULOSKELETAL/RHEUMATOLOGICAL Hx Arthritis: Yes - GASTROINTESTINAL Hx Gastrointestinal Disorders: Yes Hx Fatty Liver Disease: Yes (H/O LIVER CIHRRHOSIS) Other/Comment: Liver Cirrhosis. Generalized Edema. Patient stated has fluid around spleen - GENITOURINARY/GYNECOLOGICAL Hx Genitourinary Disorders: No - PSYCHIATRIC Hx Anxiety: Yes Hx Depression: Yes Hx Substance Use: No - SURGICAL HISTORY Hx Tonsillectomy: Yes - ANESTHESIA Hx Anesthesia: Yes Hx Anesthesia Reactions: No Hx Malignant Hyperthermia: No Meds Allergies/Adverse Reactions: Allergies Allergy/AdvReac Type Severity Reaction Status Date / Time Penicillins Allergy Severe ANAPHYLAXIS Verified 07/02/18 10:19 - Medications Medications: Current Medications Acetaminophen (Tylenol 325mg Tab) 650 mg PO Q8H PRN PRN Reason: fever >100.0 Last Admin: 07/04/18 16:17 Dose: 650 mg Acetaminophen (Tylenol 325mg Tab) 650 mg PO Q8 PRN PRN Reason: Pain, Mild (1-3) Last Admin: 07/03/18 09:48 Dose: 650 mg Alprazolam (Xanax) 0.25 mg PO Q8H PRN PRN Reason: Anxiety Stop: 07/10/18 14:09 Last Admin: 07/05/18 09:13 Dose: 0.25 mg Ferrous Sulfate (Feosol) 325 mg PO DAILY [facility] Last Admin: 07/05/18 09:13 Dose: 325 mg Medroxyprogesterone Acetate (Provera) 10 mg PO BID [facility] Last Admin: 07/05/18 09:14 Dose: 10 mg Multivitamins (Hexavitamin) 1 tab PO DAILY [facility] Last Admin: 07/05/18 09:13 Dose: 1 tab Trazodone HCl (Desyrel) 50 mg PO HS [facility] Last Admin: 07/03/18 22:24 Dose: 50 mg Physical Exam - Constitutional Appears: Well - Head Exam Head Exam: NORMOCEPHALIC - Eye Exam Eye Exam: Scleral icterus - Respiratory Exam Respiratory Exam: Clear to Auscultation Bilateral - Cardiovascular Exam Cardiovascular Exam: REGULAR RHYTHM - GI/Abdominal Exam GI & Abdominal Exam: Normal Bowel Sounds, Soft. absent: Mass, Tenderness Additional comments: Obese abdomen - Neurological Exam Neurological exam: Alert, Oriented x3 - Psychiatric Exam Psychiatric exam: Normal Affect, Normal Mood Results - Vital Signs Recent Vital Signs: Last Vital Signs Temp 98.1 F 07/05/18 08:06 Pulse 90 07/05/18 08:06 Resp 18 07/05/18 08:06 BP 98/53 L 07/05/18 08:06 Pulse Ox 100 07/05/18 08:06 - Labs Result Diagrams: 07/04/18 10:27 07/04/18 10:27 Labs: Laboratory Results - last 24 hr 07/04/18 07/04/18 10:27 10:27 WBC 4.9 RBC 2.77 L Hgb 7.8 L Hct 23.6 L MCV 85.3 MCH 28.3 MCHC 33.1 RDW 18.2 H Plt Count 124 L D MPV 8.5 Neut % (Auto) 64.6 Lymph % (Auto) 19.6 L [place] % (Auto) 12.5 H Eos % (Auto) 2.6 Baso % (Auto) 0.7 Neut # (Auto) 3.1 Lymph # (Auto) 1.0 [place] # (Auto) 0.6 Eos # (Auto) 0.1 Baso # (Auto) 0.0 Differential Comment Sodium 130 L Potassium 3.2 L Chloride 102 Carbon Dioxide 24 Anion Gap 8 L BUN 9 Creatinine 0.7 Est GFR ( Amer) > 60 Est GFR (Non-Af Amer) > 60 Random Glucose 95 Calcium 6.6 L Total Bilirubin 5.8 H AST 58 H D ALT 32 Alkaline Phosphatase 112 Total Protein 5.1 L Albumin 2.1 L Globulin 3.0 Albumin/Globulin Ratio 0.7 L Amylase 44 Lipase 260 Assessment & Plan (1) Vaginal bleeding Assessment and Plan: now stable Managed by Recording Engineer- Dysfunctional uterine bleeding Status: Acute (2) Abdominal pain Assessment and Plan: Likely alcoholic gastritis. Pain not typical of pancreatitis, and Lipase levels normal. Recommend PPI No need to repeat EGD (done by Dr Reed September 2017) May discharge home Status: Acute (3) Alcohol abuse Assessment and Plan: Urged to cease ETOH drinking, cautioned about morbidity/mortality with continued ETOH use Status: Acute (4) Ascites Assessment and Plan: Small amount. Due to alcoholic cirrhosis. Not enough for paracentesis. Needs outpatient follow up on GI clinic Status: Acute
[2018-07-05] MEDS: Pantoprazole 40 mg EC Tab PO SCH (11:17)
--- NOTE | 2018-07-05 12:18 | CP.PCM.PN ---
Subjective - Date & Time of Evaluation Date of Evaluation: 07/05/18 Time of Evaluation: 12:15 - Subjective Subjective: less abd pain hi jundice scirohsis liver pancreatits aneamia Objective - Vital Signs/Intake and Output Vital Signs (last 24 hours): Temp Pulse Resp BP Pulse Ox 98.1 F 90 18 98/53 L 100 07/05/18 08:06 07/05/18 08:06 07/05/18 08:06 07/05/18 08:06 07/05/18 08:06 - Medications Medications: Current Medications Acetaminophen (Tylenol 325mg Tab) 650 mg PO Q8H PRN PRN Reason: fever >100.0 Last Admin: 07/04/18 16:17 Dose: 650 mg Acetaminophen (Tylenol 325mg Tab) 650 mg PO Q8 PRN PRN Reason: Pain, Mild (1-3) Last Admin: 07/03/18 09:48 Dose: 650 mg Alprazolam (Xanax) 0.25 mg PO Q8H PRN PRN Reason: Anxiety Stop: 07/10/18 14:09 Last Admin: 07/05/18 09:13 Dose: 0.25 mg Ferrous Sulfate (Feosol) 325 mg PO DAILY [facility] Last Admin: 07/05/18 09:13 Dose: 325 mg Medroxyprogesterone Acetate (Provera) 10 mg PO BID [facility] Last Admin: 07/05/18 09:14 Dose: 10 mg Multivitamins (Hexavitamin) 1 tab PO DAILY [facility] Last Admin: 07/05/18 09:13 Dose: 1 tab Pantoprazole Sodium (Protonix Ec Tab) 40 mg PO DAILY [facility] Last Admin: 07/05/18 11:17 Dose: 40 mg Trazodone HCl (Desyrel) 50 mg PO HS [facility] Last Admin: 07/03/18 22:24 Dose: 50 mg - Labs Labs: 07/04/18 10:27 07/04/18 10:27 - Constitutional Appears: Non-toxic - Head Exam Head Exam: ATRAUMATIC - Eye Exam Eye Exam: Normal appearance Pupil Exam: PERRL - GI/Abdominal Exam GI & Abdominal Exam: Tenderness - Rectal Exam Rectal Exam: NORMAL INSPECTION - Extremities Exam Extremities Exam: Normal Capillary Refill - Back Exam Back Exam: NORMAL INSPECTION - Neurological Exam Neurological Exam: Abnormal Gait, Awake, Normal Gait, Oriented x3 - Psychiatric Exam Psychiatric exam: Normal Affect - Skin Skin Exam: Pallor Assessment and Plan - Assessment and Plan (Free Text) Assessment: acpancreatitis liver scirosis ascitis tunice r/o gall stones Plan: as per orders
[2018-07-05] MEDS: Potassium Chloride 10 mEq ER Tab PO SCH ×2 (14:05→15:26)
[2018-07-05] MEDS: Potassium Chloride 20 mEq/15 ml LIQ UD PO SCH (15:23)
--- NOTE | 2018-07-05 16:53 | US ---
Date of service: 07/05/2018 HISTORY: r/o gallstones, r/o cbd obstruction COMPARISON: 11/10/2017 abdominal ultrasound July 04, 2018. CT abdomen and pelvis TECHNIQUE: Sonographic evaluation of the abdomen. FINDINGS: LIVER: Measures 20.2 cm. Hepatopedal blood flow. Fatty infiltration manifest ultrasonographically as increased echogenicity of the liver parenchyma. Cirrhotic appearing liver common nodular contour. GALLBLADDER: Gallbladder wall edema identified similar to findings on recent CT scan. Gallbladder wall polyp or small stone identified measuring 5 x 7 mm. COMMON BILE DUCT: Measures 3.6 mm. No stones. No dilatation. PANCREAS: Unremarkable as visualized. No mass. No ductal dilatation. RIGHT KIDNEY: Measures 4.4 x 11.7cm. Normal echogenicity. No calculus, mass, or hydronephrosis. LEFT KIDNEY: Measures 4.3 x 12.4cm. Normal echogenicity. No calculus, mass, or hydronephrosis. SPLEEN: Splenomegaly. Orthogonal measurements 5.6 x 15.6 AORTA: No aneurysmal dilatation. IVC: Unremarkable. OTHER FINDINGS: Intra-abdominal fluid identified although better visualized on recent CT scan. IMPRESSION: Hepatomegaly, cirrhotic appearing liver. Splenomegaly. Intra-abdominal ascites. Small echogenic focus in the gallbladder likely polyp.
[2018-07-06] MEDS ORDERED: Influenza Vaccine 60 mcg/0.5 mL SYR (4YR UP) IM ONE (08:58)
[2018-07-06] MEDS: Potassium Chloride 20 mEq/15 ml LIQ UD PO SCH (09:18)
[2018-07-06] MEDS: Pantoprazole 40 mg EC Tab PO SCH (09:29)
[2018-07-06] MEDS: Multiple Vitamins Tab PO SCH (09:29)
[2018-07-06 09:30] VITALS: BP 111/68
[2018-07-06 09:35] VITALS: PULSE 100; RESP 18; TEMP 98; O2SAT 99
--- NOTE | 2018-07-06 09:58 | CP.PCM.PN ---
Subjective - Date & Time of Evaluation Date of Evaluation: 07/06/18 Time of Evaluation: 09:55 - Subjective Subjective: pt has no pain today tolerating diet no vaginal bleeding Objective - Vital Signs/Intake and Output Vital Signs (last 24 hours): Temp Pulse Resp BP Pulse Ox 98 F 100 H 18 111/68 99 07/06/18 08:00 07/06/18 08:00 07/06/18 08:00 07/06/18 09:20 07/06/18 08:00 - Medications Medications: Current Medications Acetaminophen (Tylenol 325mg Tab) 650 mg PO Q8H PRN PRN Reason: fever >100.0 Last Admin: 07/06/18 00:16 Dose: 650 mg Acetaminophen (Tylenol 325mg Tab) 650 mg PO Q8 PRN PRN Reason: Pain, Mild (1-3) Last Admin: 07/03/18 09:48 Dose: 650 mg Alprazolam (Xanax) 0.25 mg PO Q8H PRN PRN Reason: Anxiety Stop: 07/10/18 14:09 Last Admin: 07/06/18 00:16 Dose: 0.25 mg Ferrous Sulfate (Feosol) 325 mg PO DAILY [facility] Last Admin: 07/06/18 09:29 Dose: 325 mg Furosemide (Lasix) 40 mg IVP DAILY [facility] Last Admin: 07/06/18 09:20 Dose: 40 mg Medroxyprogesterone Acetate (Provera) 10 mg PO BID [facility] Last Admin: 07/06/18 09:29 Dose: 10 mg Multivitamins (Hexavitamin) 1 tab PO DAILY [facility] Last Admin: 07/06/18 09:29 Dose: 1 tab Pantoprazole Sodium (Protonix Ec Tab) 40 mg PO DAILY [facility] Last Admin: 07/06/18 09:29 Dose: 40 mg Potassium Chloride (Potassium Chloride Oral Soln) 10 meq PO BRK [facility] Last Admin: 07/06/18 09:18 Dose: 10 meq Trazodone HCl (Desyrel) 50 mg PO HS [facility] Last Admin: 07/05/18 22:30 Dose: Not Given - Labs Labs: 07/04/18 10:27 07/04/18 10:27 - Constitutional Appears: Non-toxic - Head Exam Head Exam: ATRAUMATIC - Eye Exam Eye Exam: Normal appearance Pupil Exam: NORMAL ACCOMODATION - ENT Exam ENT Exam: Mucous Membranes Moist - Neck Exam Neck Exam: Full ROM - Respiratory Exam Respiratory Exam: Clear to Ausculation Bilateral - Cardiovascular Exam Cardiovascular Exam: REGULAR RHYTHM - GI/Abdominal Exam GI & Abdominal Exam: Normal Bowel Sounds - Rectal Exam Rectal Exam: NORMAL INSPECTION - Exam Exam: NORMAL INSPECTION - Extremities Exam Extremities Exam: Normal Capillary Refill - Back Exam Back Exam: NORMAL INSPECTION - Neurological Exam Neurological Exam: Alert, Awake, Normal Gait, Oriented x3 - Psychiatric Exam Psychiatric exam: Normal Affect - Skin Skin Exam: Pallor Assessment and Plan - Assessment and Plan (Free Text) Assessment: s/p vaginal bleeding aneamia needed transfusion stable now s/p liver scirosis ascitis will cont on med Plan: discharge home today f/u in one [place] 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
== END 2018-07-06 13:16 | disposition home or self-care (01) | DRG 574 ==
LOC: C.ER 10:06 → C.9E 12:02 → C.4M 17:42
PROVIDERS: ADMIT Internal Medicine; ATTEND Internal Medicine
PROC: 30233N1 Transfusion of Nonautologous Red Blood Cells into Peripheral Vein, Percutaneous Approach (ICD-10-PCS; principal; 2018-07-03)
DX: D50.0 Iron deficiency anemia secondary to blood loss (chronic) (principal); K85.90 Acute pancreatitis without necrosis or infection, unspecified; N93.8 Other specified abnormal uterine and vaginal bleeding; K70.31 Alcoholic cirrhosis of liver with ascites; I10 Essential (primary) hypertension; J45.909 Unspecified asthma, uncomplicated; K29.20 Alcoholic gastritis without bleeding; K76.0 Fatty (change of) liver, not elsewhere classified; N92.0 Excessive and frequent menstruation with regular cycle; Z87.891 Personal history of nicotine dependence; Z98.84 Bariatric surgery status; F41.9 Anxiety disorder, unspecified; F32.9 Major depressive disorder, single episode, unspecified

== ENCOUNTER 2018-07-14 17:47 | Observation (INO) | payer OTHER ==
[2018-07-14 17:48] VITALS: BMI 34.9
--- NOTE | 2018-07-14 18:47 | C.PDOC ---
History Of Present Illness 33 y/o female w/PMhx of ETOB abuse liver cirrhosis, presents to the ER for evaluation of abdominal pain, back pain, leg pain, and ankle pain secondary to anasarca. Patient states that she was recently admitted for vaginal bleeding and she received blood transfusions in [facility]. Patient reports that she gained 50 pound of water weight after she was discharged.Denies having CP and SOB. Time Seen by Provider: 07/14/18 18:25 Chief Complaint (Nursing): Shortness Of Breath History Per: Patient History/Exam Limitations: no limitations Onset/Duration Of Symptoms: Days Current Symptoms Are (Timing): Still Present Severity: Moderate Past Medical History Reviewed: Historical Data, Nursing Documentation, Vital Signs Vital Signs: Last Vital Signs Temp 98.4 F 07/14/18 17:52 Pulse 102 H 07/14/18 17:52 Resp 18 07/14/18 17:52 BP 124/73 07/14/18 17:52 Pulse Ox 100 07/14/18 17:52 - Medical History PMH: Anemia, Anxiety, Arthritis, Asthma, Back Problems, Depression, HTN Denies: Alzheimer's Disease, Atrial Fibrillation, Bronchitis, Cardia Arrhythmia, CHF, COPD, Dementia, Emphysema, Fractures, HIV, Hypercholesterolemia, Kidney Stones, Migraine, Mitral Valve Prolapse, Multiple Sclerosis, Osteoporosis, Parkinson's Disease, Peripheral Edema, Pneumonia, Pulmonary Embolism, Chronic Kidney Disease, Rheumatoid Arthritis, Seizures, Sickle Cell Disease, Sleep Apnea, TIA Surgical History: Tonsillectomy, Denies: Pacemaker - [facility] Procedures EXCISION OF STOMACH, ENDO, DIAGN (12/04/16) INDIVIDUAL PSYCHOTHERAPY, SUPPORTIVE (12/04/16) TRANSFUSE NONAUT RED BLOOD CELLS IN PERIPH VEIN, PERC (07/02/18) Family History: States: No Known Family Hx - Social History Hx Tobacco Use: Yes Hx Alcohol Use: Yes Hx Substance Use: No - Immunization History Hx Tetanus Toxoid Vaccination: No Hx Influenza Vaccination: Yes Hx Pneumococcal Vaccination: No Review Of Systems Except As Marked, All Systems Reviewed And Found Negative. Constitutional: Negative for: Fever, Chills Gastrointestinal: Positive for: Abdominal Pain. Negative for: Nausea, Vomiting Musculoskeletal: Positive for: Back Pain, Leg Pain Physical Exam - Physical Exam Appears: Other (morbidly obese) Skin: Normal Color, Warm, Dry Head: Atraumatic, Normacephalic Eye(s): bilateral: Normal Inspection Nose: Normal Oral Mucosa: Moist Neck: Supple Chest: Symmetrical Cardiovascular: Rhythm Regular Respiratory: Decreased Breath Sounds (decreased breath sounds at bilateral bases), No Rales, No Rhonchi, No Wheezing Gastrointestinal/Abdominal: Soft, No Tenderness, No Guarding, No Rebound, Other (large pannus hanging off abdomen) Extremity: Other (pitting edema to bilateral lower extremities) Neurological/Psych: Oriented x3, Normal Speech ED Course And Treatment O2 Sat by Pulse Oximetry: 100 (RA) Pulse Ox Interpretation: Normal Medical Decision Making Medical Decision Making: Plan: --Labs --UA --CXR --Lasix IV --Pepcid IV --Toradol IV Disposition - Disposition Disposition Time: 18:55 Condition: STABLE Forms: [facility] (Yi) - POA Present On Arrival: None - Clinical Impression Clinical Impression: Liver cirrhosis, Anasarca - Scribe Statement The provider has reviewed the documentation as recorded by the Chioibe John Pena Provider Attestation: All medical record entries made by the Scribe were at my direction and p ersonally dictated by me. I have reviewed the chart and agree that the record accurately reflects my personal performance of the history, physical exam, medical decision making, and the department course for this patient. I have also personally directed, reviewed, and agree with the discharge instructions and disposition. Physician Patient Turnover Patient Signed Over To: Lazarus Ocampo Handoff Comments: pending labs and dispo
--- NOTE | 2018-07-14 18:56 | RAD ---
Date of service: 07/14/2018 PROCEDURE: CHEST RADIOGRAPH, 1 VIEW HISTORY: abd pain COMPARISON: Chest radiograph dated 07/02/2018 FINDINGS: LUNGS: Clear. PLEURA: No pneumothorax or pleural fluid seen. CARDIOVASCULAR: No aortic atherosclerotic calcification present. Normal. OSSEOUS STRUCTURES: No significant abnormalities. VISUALIZED UPPER ABDOMEN: Normal. OTHER FINDINGS: None. IMPRESSION: No active disease.
[2018-07-14 19:10] LABS: INR 1.4; PROTHROMBIN TIME 15.8 SECONDS (9.7-12.2)
[2018-07-14 19:24] LABS: BASO % 0.9 % (0.0-2.0); EOS # 0.1 K/uL (0.0-0.7); EOS % 2.7 % (0.0-4.0); LYMPH # 1.3 K/uL (1.0-4.3); LYMPH % 24.8 % (20.0-40.0); MEAN CELL VOLUME 86.8 fL (81.0-99.0); MEAN CORPUSCULAR HEMOGLOBIN 26.8 pg (27.0-31.0); MEAN CORPUSCULAR HGB CONC 30.9 g/dL (33.0-37.0); MEAN PLATELET VOLUME 8.5 fL (7.2-11.7); MONO # 0.4 K/uL (0.0-0.8); MONO % 8.5 % (0.0-10.0); NEUT # 3.3 K/uL (1.8-7.0); NEUT % 63.1 % (50.0-75.0); NRBC % 0.1 % (0.0-2.0); RBC 2.97 Mil/uL (3.80-5.20); RED CELL DISTRIBUTION WIDTH 21.1 % (11.5-14.5); WHITE BLOOD COUNT 5.2 K/uL (4.8-10.8)
[2018-07-14] MEDS ORDERED: Potassium Chloride 10 mEq ER Tab PO STA (19:24)
[2018-07-14 19:30] LABS: B-TYPE NATRIURETIC PEPTIDE 118 pg/mL (0-450)
[2018-07-14 19:32] LABS: ALB/GLOB RATIO 0.7 (1.0-2.1); ALBUMIN 2.9 g/dL (3.5-5.0); ALT/SGPT 21 U/L (9-52); AST/SGOT 125 U/L (14-36); BLOOD UREA NITROGEN 6 mg/dL (7-17); CALCIUM 6.8 mg/dl (8.6-10.4); GFR NON-AFRICAN AMERICAN > 60
[2018-07-14] MEDS ORDERED: Potassium Chloride 20 mEq/15 ml LIQ UD ONE (19:52)
[2018-07-14 20:00] LABS: SQUAMOUS EPITHIAL 24 /hpf (0-5); URINE BILIRUBIN 1+ (NEGATIVE); URINE BLOOD 3+ (NEGATIVE); URINE CLARITY Clear (Clear); URINE GLUCOSE (UA) NORMAL (Normal); URINE LEUKOCYTE ESTERASE NEG Leu/uL (Negative); URINE PROTEIN NEGATIVE (NEGATIVE)
[2018-07-14 20:12] LABS: BARBITURATES, UR NEGATIVE (NEGATIVE); BENZODIAZEPINES, UR NEGATIVE (NEGATIVE); OPIATES, UR NEGATIVE (NEGATIVE); PHENCYCLIDINE, UR NEGATIVE (NEGATIVE)
[2018-07-14 20:20] LABS: URINE COLOR YELLOW (YELLOW)
[2018-07-14] MEDS ORDERED: Phytonadione 10 mg/ml Inj (Adult) SC STA (22:01)
[2018-07-15 08:26] LABS: HEMOGLOBIN 7.4 g/dL (11.0-16.0); MEAN CORPUSCULAR HEMOGLOBIN 27.4 pg (27.0-31.0); MEAN CORPUSCULAR HGB CONC 31.2 g/dL (33.0-37.0); MEAN PLATELET VOLUME 9.4 fL (7.2-11.7); RBC 2.71 Mil/uL (3.80-5.20); RED CELL DISTRIBUTION WIDTH 20.3 % (11.5-14.5); WHITE BLOOD COUNT 3.3 K/uL (4.8-10.8)
[2018-07-15 08:33] LABS: BLOOD UREA NITROGEN 9 mg/dL (7-17); CALCIUM 6.7 mg/dl (8.6-10.4); GFR NON-AFRICAN AMERICAN > 60
[2018-07-15] MEDS ORDERED: Lidocaine 2% MPF (5 ml) Inj ONE (09:09)
[2018-07-15] MEDS ORDERED: Potassium Chloride 20 mEq ER Tab PO SCH (10:00)
--- NOTE | 2018-07-15 10:09 | PCM.SURG1 ---
Surgeon's Initial Post Op Note - Surgeon's Notes Surgeon: Chadwick Tellez MD Owner Spa Director: NONE Type of Anesthesia: Local Pre-Operative Diagnosis: Ascits, cirrhosis Operative Findings: US showed moderate ascites Post-Operative Diagnosis: Ascites, cirrhosis Operation Performed: US guided paracentesis Specimen/Specimens Removed: 2.5 liters of clear yellow fluid Estimated Blood Loss: EBL {In ML}: 0 Blood Products Given: N/A Drains Used: No Drains Post-Op Condition: Fair Date of Surgery/Procedure: 07/15/18 Time of Surgery/Procedure: 10:05
[2018-07-15] MEDS: Multiple Vitamins Tab PO SCH (10:24)
[2018-07-15] MEDS ORDERED: Potassium Chloride 20 mEq/15 ml LIQ UD PO ONE (10:30)
--- NOTE | 2018-07-15 10:33 | CP.PCM.HP ---
History of Present Illness - History of Present Illness History of Present Illness: PT CAME ABDOMINAL DISTENSION ASCITIS SOB ALCOHOLIC Present on Admission - Present on Admission Any Indicators Present on Admission: No Review of Systems - Review of Systems Systems not reviewed;Unavailable: Acuity of Condition - Constitutional Constitutional: Fatigue - EENT Eyes: As Per HPI Nose/Mouth/Throat: As Per HPI - Breasts Breasts: As Per HPI - Cardiovascular Cardiovascular: As Per HPI - Respiratory Respiratory: Dyspnea on Exertion - Gastrointestinal Gastrointestinal: Bloating - Genitourinary Genitourinary: Urinary Frequency - Reproductive: Female Reproductive:Female: As Per HPI - Menstruation Menstruation: As Per HPI - Musculoskeletal Musculoskeletal: As Per HPI - Integumentary Integumentary: As Per HPI - Neurological Neurological: As Per HPI - Psychiatric Psychiatric: As Per HPI - Endocrine Endocrine: As Per HPI Past Patient History - Infectious Disease Hx of Infectious Diseases: None - Past Medical History & Family History Past Medical History?: No - Past Social History Smoking Status: Never Smoked - CARDIAC Hx Atrial Fibrillation: No Hx Cardia Arrhythmia: No Hx Congestive Heart Failure: No Hx Hypercholesterolemia: No Hx Hypertension: Yes Hx Mitral Valve Prolapse: No Hx Pacemaker: No Hx Peripheral Edema: No - PULMONARY Hx Asthma: Yes Hx Bronchitis: No Hx Chronic Obstructive Pulmonary Disease (COPD): No Hx Emphysema: No Hx Pneumonia: No Hx Pulmonary Embolism: No Hx Sleep Apnea: No - NEUROLOGICAL Hx Alzheimer's Disease: No Hx Dementia: No Hx Migraine: No Hx Multiple Sclerosis: No Hx Parkinson's Disease: No Hx Seizures: No Hx Transient Ischemic Attacks (TIA): No - HEENT Hx HEENT Problems: No Hx Blind: No Hx Cataracts: No Hx Deafness: No Hx Difficulty Chewing: No Hx Epistaxis: No Hx Glaucoma: No Hx Macular Degeneration: No - RENAL Hx Chronic Kidney Disease: No Hx Kidney Stones: No - ENDOCRINE/METABOLIC Hx Endocrine Disorders: No - HEMATOLOGICAL/ONCOLOGICAL Hx Anemia: Yes Hx Human Immunodeficiency Virus (HIV): No Hx Sickle Cell Disease: No - INTEGUMENTARY Hx Dermatological Problems: No - MUSCULOSKELETAL/RHEUMATOLOGICAL Hx Arthritis: Yes Hx Fractures: No Hx Osteoporosis: No Hx Rheumatoid Arthritis: No - GASTROINTESTINAL Hx Gastrointestinal Disorders: Yes Hx Fatty Liver Disease: Yes (H/O LIVER CIHRRHOSIS) Other/Comment: Liver Cirrhosis. Generalized Edema. Patient stated has fluid around spleen - GENITOURINARY/GYNECOLOGICAL Hx Genitourinary Disorders: No - PSYCHIATRIC Hx Anxiety: Yes Hx Depression: Yes Hx Substance Use: No - SURGICAL HISTORY Hx Tonsillectomy: Yes - ANESTHESIA Hx Anesthesia: Yes Hx Anesthesia Reactions: No Hx Malignant Hyperthermia: No Meds Allergies/Adverse Reactions: Allergies Allergy/AdvReac Type Severity Reaction Status Date / Time Penicillins Allergy Severe ANAPHYLAXIS Verified 07/14/18 17:56 Physical Exam - Constitutional Appears: Non-toxic - Head Exam Head Exam: ATRAUMATIC - Eye Exam Eye Exam: Normal appearance Pupil Exam: NORMAL ACCOMODATION - ENT Exam ENT Exam: Mucous Membranes Moist - Neck Exam Neck exam: Positive for: Full Rom - Respiratory Exam Respiratory Exam: Decreased Breath Sounds - Cardiovascular Exam Cardiovascular Exam: REGULAR RHYTHM - GI/Abdominal Exam GI & Abdominal Exam: Distended, Normal Bowel Sounds, Tenderness Additional comments: ASCITIS - Rectal Exam Rectal Exam: NORMAL INSPECTION - Exam Exam: NORMAL INSPECTION - Extremities Exam Extremities exam: Positive for: normal inspection, pedal edema Results - Vital Signs Recent Vital Signs: Last Vital Signs Temp 99.0 F 07/15/18 07:00 Pulse 87 07/15/18 07:05 Resp 20 07/15/18 07:00 BP 111/72 07/15/18 10:24 Pulse Ox 99 07/15/18 07:00 - Labs Result Diagrams: 07/15/18 08:09 07/15/18 08:09 Labs: Laboratory Results - last 24 hr 07/14/18 07/14/18 07/14/18 18:56 18:56 19:20 WBC 5.2 RBC 2.97 L Hgb 8.0 L Hct 25.8 L MCV 86.8 MCH 26.8 L MCHC 30.9 L RDW 21.1 H Plt Count 135 MPV 8.5 Neut % (Auto) 63.1 Lymph % (Auto) 24.8 Hill % (Auto) 8.5 Eos % (Auto) 2.7 Baso % (Auto) 0.9 Neut # (Auto) 3.3 Lymph # (Auto) 1.3 Hill # (Auto) 0.4 Eos # (Auto) 0.1 Baso # (Auto) 0.0 PT 15.8 H INR 1.4 APTT 37 H Sodium 137 Potassium 4.2 Chloride 109 H Carbon Dioxide 23 Anion Gap 9 L BUN 6 L Creatinine 0.6 L Est GFR ( Amer) > 60 Est GFR (Non-Af Amer) > 60 Random Glucose 97 Calcium 6.8 L Total Bilirubin 3.3 H AST 125 H D ALT 21 Alkaline Phosphatase 123 Ammonia Troponin I < 0.0120 NT-Pro-B Natriuret Pep 118 Total Protein 7.1 Albumin 2.9 L D Globulin 4.3 H Albumin/Globulin Ratio 0.7 L Urine Color Urine Clarity Urine pH Ur Specific [place] Urine Protein Urine Glucose (UA) Urine Ketones Urine Blood Urine Nitrate Urine Bilirubin Urine Urobilinogen Ur Leukocyte Esterase Urine WBC (Auto) Urine RBC (Auto) Ur Squamous Epith Cells Urine HCG, Qual Urine Opiates Screen Urine Methadone Screen Ur Barbiturates Screen Ur Phencyclidine Scrn Ur Amphetamines Screen U Benzodiazepines Scrn U Oth Cocaine Metabols U Cannabinoids Screen Alcohol, Quantitative 07/14/18 07/14/18 07/14/18 19:45 19:45 20:03 WBC RBC Hgb Hct MCV MCH MCHC RDW Plt Count MPV Neut % (Auto) Lymph % (Auto) Hill % (Auto) Eos % (Auto) Baso % (Auto) Neut # (Auto) Lymph # (Auto) Hill # (Auto) Eos # (Auto) Baso # (Auto) PT INR APTT Sodium Potassium Chloride Carbon Dioxide Anion Gap BUN Creatinine Est GFR ( Amer) Est GFR (Non-Af Amer) Random Glucose Calcium Total Bilirubin AST ALT Alkaline Phosphatase Ammonia Troponin I NT-Pro-B Natriuret Pep Total Protein Albumin Globulin Albumin/Globulin Ratio Urine Color Yellow Urine Clarity Clear Urine pH 6.0 Ur Specific [place] 1.017 Urine Protein Negative Urine Glucose (UA) Normal Urine Ketones Negative Urine Blood 3+ H Urine Nitrate Negative Urine Bilirubin 1+ H Urine Urobilinogen 4.0 H Ur Leukocyte Esterase Neg Urine WBC (Auto) 6 H Urine RBC (Auto) 25 H Ur Squamous Epith Cells 24 H Urine HCG, Qual Urine Opiates Screen Negative Urine Methadone Screen Negative Ur Barbiturates Screen Negative Ur Phencyclidine Scrn Negative Ur Amphetamines Screen Negative U Benzodiazepines Scrn Negative U Oth Cocaine Metabols Negative U Cannabinoids Screen Negative Alcohol, Quantitative 114 H 07/14/18 07/15/18 07/15/18 20:03 00:38 08:09 WBC 3.3 L RBC 2.71 L Hgb 7.4 L Hct 23.9 L MCV 88.0 MCH 27.4 MCHC 31.2 L RDW 20.3 H Plt Count 125 L MPV 9.4 Neut % (Auto) Lymph % (Auto) Hill % (Auto) Eos % (Auto) Baso % (Auto) Neut # (Auto) Lymph # (Auto) Hill # (Auto) Eos # (Auto) Baso # (Auto) PT INR APTT Sodium Potassium Chloride Carbon Dioxide Anion Gap BUN Creatinine Est GFR ( Amer) Est GFR (Non-Af Amer) Random Glucose Calcium Total Bilirubin AST ALT Alkaline Phosphatase Ammonia 17 D Troponin I NT-Pro-B Natriuret Pep Total Protein Albumin Globulin Albumin/Globulin Ratio Urine Color Urine Clarity Urine pH Ur Specific [place] Urine Protein Urine Glucose (UA) Urine Ketones Urine Blood Urine Nitrate Urine Bilirubin Urine Urobilinogen Ur Leukocyte Esterase Urine WBC (Auto) Urine RBC (Auto) Ur Squamous Epith Cells Urine HCG, Qual Negative Urine Opiates Screen Urine Methadone Screen Ur Barbiturates Screen Ur Phencyclidine Scrn Ur Amphetamines Screen U Benzodiazepines Scrn U Oth Cocaine Metabols U Cannabinoids Screen Alcohol, Quantitative 07/15/18 07/15/18 08:09 08:09 WBC RBC Hgb Hct MCV MCH MCHC RDW Plt Count MPV Neut % (Auto) Lymph % (Auto) Hill % (Auto) Eos % (Auto) Baso % (Auto) Neut # (Auto) Lymph # (Auto) Hill # (Auto) Eos # (Auto) Baso # (Auto) PT INR APTT Sodium 136 Potassium 3.5 L Chloride 105 Carbon Dioxide 27 Anion Gap 7 L BUN 9 Creatinine 0.6 L Est GFR ( Amer) > 60 Est GFR (Non-Af Amer) > 60 Random Glucose 83 Calcium 6.7 L Total Bilirubin AST ALT Alkaline Phosphatase Ammonia 24 D Troponin I NT-Pro-B Natriuret Pep Total Protein Albumin Globulin Albumin/Globulin Ratio Urine Color Urine Clarity Urine pH Ur Specific [place] Urine Protein Urine Glucose (UA) Urine Ketones Urine Blood Urine Nitrate Urine Bilirubin Urine Urobilinogen Ur Leukocyte Esterase Urine WBC (Auto) Urine RBC (Auto) Ur Squamous Epith Cells Urine HCG, Qual Urine Opiates Screen Urine Methadone Screen Ur Barbiturates Screen Ur Phencyclidine Scrn Ur Amphetamines Screen U Benzodiazepines Scrn U Oth Cocaine Metabols U Cannabinoids Screen Alcohol, Quantitative Assessment & Plan - Assessment and Plan (Free Text) Assessment: AC UTI ASCITIS ALC LIVER SCIROSIS ANEAMIA Plan: GIOVANNI SYNTESIS DON 2 LITER FLUID CAME OUT - Date & Time Date: 07/15/18 Time: 10:37
[2018-07-15] MEDS: CIPROFLOXACIN 400 MG/200 ML IVPB SCH (12:14)
[2018-07-15] MEDS: D5W IVPB SCH (12:14)
[2018-07-16] MEDS: CIPROFLOXACIN 400 MG/200 ML IVPB SCH ×2 (00:14→11:48)
[2018-07-16] MEDS: D5W IVPB SCH ×2 (00:14→11:48)
[2018-07-16 07:36] LABS: EOS # 0.1 K/uL (0.0-0.7); EOS % 4.5 % (0.0-4.0); HEMOGLOBIN 7.5 g/dL (11.0-16.0); LYMPH % 31.4 % (20.0-40.0); MEAN CELL VOLUME 88.2 fL (81.0-99.0); MEAN CORPUSCULAR HEMOGLOBIN 27.4 pg (27.0-31.0); MEAN CORPUSCULAR HGB CONC 31.1 g/dL (33.0-37.0); MEAN PLATELET VOLUME 9.2 fL (7.2-11.7); MONO # 0.3 K/uL (0.0-0.8); MONO % 8.3 % (0.0-10.0); NEUT # 1.7 K/uL (1.8-7.0); NEUT % 54.8 % (50.0-75.0); NRBC % 0.1 % (0.0-2.0); RBC 2.74 Mil/uL (3.80-5.20); RED CELL DISTRIBUTION WIDTH 19.8 % (11.5-14.5); WHITE BLOOD COUNT 3.1 K/uL (4.8-10.8)
[2018-07-16 08:09] LABS: ALB/GLOB RATIO 0.6 (1.0-2.1); ALBUMIN 2.1 g/dL (3.5-5.0); ALT/SGPT 33 U/L (9-52); AST/SGOT 66 U/L (14-36); BLOOD UREA NITROGEN 8 mg/dL (7-17); CALCIUM 6.7 mg/dl (8.6-10.4); GFR NON-AFRICAN AMERICAN > 60
[2018-07-16] MEDS: Multiple Vitamins Tab PO SCH (10:37)
[2018-07-16] MEDS: Potassium Chloride 20 mEq/15 ml LIQ UD PO SCH (10:39)
--- NOTE | 2018-07-16 12:41 | CP.PCM.PN ---
Subjective - Date & Time of Evaluation Date of Evaluation: 07/16/18 Time of Evaluation: 12:38 - Subjective Subjective: c/o of abd pain nausea vomiting aneamia reqwired transfusion Objective - Vital Signs/Intake and Output Vital Signs (last 24 hours): Temp Pulse Resp BP Pulse Ox 99.2 F 83 20 119/75 100 07/16/18 07:00 07/16/18 08:00 07/16/18 07:00 07/16/18 10:38 07/16/18 07:00 Intake and Output: 07/16/18 07/16/18 06:59 18:59 Intake Total 500 Balance 500 - Medications Medications: Current Medications Alprazolam (Xanax) 0.5 mg PO BID PRN PRN Reason: Anxiety Last Admin: 07/15/18 22:59 Dose: 0.5 mg Furosemide (Lasix) 40 mg IVP BID [facility] Last Admin: 07/16/18 10:38 Dose: 40 mg Ciprofloxacin (Cipro 400mg/200ml Dsw) 400 mg in 200 mls @ 133 mls/hr IVPB Q12H [facility]; Protocol Last Admin: 07/16/18 11:48 Dose: 133 mls/hr Multivitamins (Hexavitamin) 1 tab PO DAILY [facility] Last Admin: 07/16/18 10:37 Dose: 1 tab Ondansetron HCl (Zofran Tab) 4 mg PO Q6 PRN PRN Reason: Nausea/Vomiting Last Admin: 07/15/18 20:17 Dose: 4 mg Potassium Chloride (Potassium Chloride Oral Soln) 20 meq PO DAILY [facility] Stop: 07/18/18 10:01 Last Admin: 07/16/18 10:39 Dose: 20 meq Tramadol HCl (Ultram) 50 mg PO Q6 PRN PRN Reason: Pain, moderate (4-7) Last Admin: 07/16/18 08:09 Dose: 50 mg - Labs Labs: 07/16/18 07:15 07/16/18 07:15 PT 15.8 SECONDS (9.7-12.2) H 07/14/18 18:56 INR 1.4 07/14/18 18:56 APTT 37 SECONDS (21-34) H 07/14/18 18:56 - Constitutional Appears: Non-toxic - Head Exam Head Exam: ATRAUMATIC - Eye Exam Eye Exam: Normal appearance Pupil Exam: NORMAL ACCOMODATION - ENT Exam ENT Exam: Normal Exam - Neck Exam Neck Exam: Full ROM - Respiratory Exam Respiratory Exam: Clear to Ausculation Bilateral - Cardiovascular Exam Cardiovascular Exam: REGULAR RHYTHM - GI/Abdominal Exam GI & Abdominal Exam: Tenderness, Normal Bowel Sounds - Exam Exam: NORMAL INSPECTION - Extremities Exam Extremities Exam: Normal Capillary Refill - Neurological Exam Neurological Exam: Alert, Oriented x3 - Psychiatric Exam Psychiatric exam: Normal Affect - Skin Skin Exam: Pallor Assessment and Plan - Assessment and Plan (Free Text) Assessment: alc abuse aneamia menorhagia withdrwal adb pain hepaic scirosis ascitis Plan: transfuseblood cont med
--- NOTE | 2018-07-16 13:14 | US ---
Date of Procedure: 07/15/2018 PROCEDURE: Ultrasound-guided paracentesis, CPT 40841 Medications: 7 cc 1% Lidocaine HISTORY: Ascites, abdominal pain, cirrhosis TECHNIQUE: Following informed consent , the patient was placed supine on the stretcher and the site was marked. A limited abdominal ultrasound was performed that showed a large amount of intra-abdominal fluid. Procedural time out was called and the Pt's abdomen was marked and prepped and draped in the usual sterile fashion. Ultrasound-guided large volume paracentesis performed. A total of 2.5 Liters of straw colored fluid was removed without complication. IMPRESSION: Ultrasound-guided large volume paracentesis.
[2018-07-16 14:15] LABS: IRON 24 ug/dL (37-170)
[2018-07-16 14:23] LABS: % IRON SATURATION 9 (20-55); TOTAL IRON BINDING CAPACITY 248 ug/dL (250-450)
[2018-07-16 14:24] LABS: % IRON SATURATION 10 (20-55); TOTAL IRON BINDING CAPACITY 248 ug/dL (250-450)
[2018-07-17] MEDS: D5W IVPB SCH ×2 (00:40→12:30)
[2018-07-17] MEDS: CIPROFLOXACIN 400 MG/200 ML IVPB SCH ×2 (00:40→12:30)
[2018-07-17 07:08] LABS: BASO % 0.9 % (0.0-2.0); EOS # 0.2 K/uL (0.0-0.7); EOS % 5.6 % (0.0-4.0); HEMOGLOBIN 8.2 g/dL (11.0-16.0); LYMPH # 1.1 K/uL (1.0-4.3); LYMPH % 32.4 % (20.0-40.0); MEAN CELL VOLUME 87.8 fL (81.0-99.0); MEAN CORPUSCULAR HEMOGLOBIN 26.9 pg (27.0-31.0); MEAN CORPUSCULAR HGB CONC 30.6 g/dL (33.0-37.0); MEAN PLATELET VOLUME 9.2 fL (7.2-11.7); MONO # 0.3 K/uL (0.0-0.8); NEUT # 1.7 K/uL (1.8-7.0); NEUT % 51.1 % (50.0-75.0); NRBC % 0.2 % (0.0-2.0); RBC 3.05 Mil/uL (3.80-5.20); RED CELL DISTRIBUTION WIDTH 18.4 % (11.5-14.5); WHITE BLOOD COUNT 3.3 K/uL (4.8-10.8)
[2018-07-17] MEDS: Multiple Vitamins Tab PO SCH (09:27)
[2018-07-17] MEDS: Potassium Chloride 20 mEq/15 ml LIQ UD PO SCH (09:27)
[2018-07-17] MEDS ORDERED: Ferric Sodium Gluconat Complex 62.5 mg/5 ml Vial IVPB SCH (10:00)
[2018-07-17] MEDS: Ferric Sodium Gluconat Complex 125 MG in Sodium Chloride 0.9% 100 ML IVPB SCH (10:39)
[2018-07-17 16:26] VITALS: RESP 20
--- NOTE | 2018-07-17 18:09 | CP.PCM.PN ---
Subjective - Date & Time of Evaluation Date of Evaluation: 07/17/18 Time of Evaluation: 18:07 - Subjective Subjective: still abdominal distension ascitis pain lower abd wall Objective - Vital Signs/Intake and Output Vital Signs (last 24 hours): Temp Pulse Resp BP Pulse Ox 99.3 F 85 20 110/64 98 07/17/18 15:10 07/17/18 15:10 07/17/18 15:10 07/17/18 17:22 07/17/18 15:10 Intake and Output: 07/17/18 07/17/18 06:59 18:59 Intake Total 340 Balance 340 - Medications Medications: Current Medications Alprazolam (Xanax) 0.5 mg PO BID PRN PRN Reason: Anxiety Last Admin: 07/17/18 00:39 Dose: 0.5 mg Diphenhydramine HCl (Benadryl) 25 mg PO Q8 PRN PRN Reason: Itching / Pruritus Folic Acid (Folic Acid) 1 mg PO DAILY [facility] Last Admin: 07/17/18 15:20 Dose: 1 mg Furosemide (Lasix) 40 mg IVP BID [facility] Last Admin: 07/17/18 17:22 Dose: 40 mg Ciprofloxacin (Cipro 400mg/200ml Dsw) 400 mg in 200 mls @ 133 mls/hr IVPB Q12H [facility]; Protocol Last Admin: 07/17/18 12:30 Dose: 133 mls/hr Ferric Sodium Gluconate Complex 125 mg/ Sodium Chloride 110 mls @ 110 mls/hr IVPB DAILY [facility] Stop: 07/21/18 10:59 Last Admin: 07/17/18 10:39 Dose: 110 mls/hr Multivitamins (Hexavitamin) 1 tab PO DAILY [facility] Last Admin: 07/17/18 09:27 Dose: 1 tab Ondansetron HCl (Zofran Tab) 4 mg PO Q6 PRN PRN Reason: Nausea/Vomiting Last Admin: 07/15/18 20:17 Dose: 4 mg Potassium Chloride (Potassium Chloride Oral Soln) 20 meq PO DAILY [facility] Stop: 07/18/18 10:01 Last Admin: 07/17/18 09:27 Dose: 20 meq Spironolactone (Aldactone) 25 mg PO BID [facility] Last Admin: 07/17/18 17:22 Dose: 25 mg Thiamine HCl (Vitamin B1 Tab) 100 mg PO DAILY [facility] Last Admin: 07/17/18 15:20 Dose: 100 mg Tramadol HCl (Ultram) 50 mg PO Q6 PRN PRN Reason: Pain, moderate (4-7) Last Admin: 07/17/18 05:25 Dose: 50 mg - Labs Labs: 07/17/18 07:00 07/16/18 07:15 PT 15.8 SECONDS (9.7-12.2) H 07/14/18 18:56 INR 1.4 07/14/18 18:56 APTT 37 SECONDS (21-34) H 07/14/18 18:56 - Constitutional Appears: Non-toxic, Unkempt - Head Exam Head Exam: ATRAUMATIC - Eye Exam Eye Exam: Normal appearance Pupil Exam: NORMAL ACCOMODATION - ENT Exam ENT Exam: Normal Exam - Neck Exam Neck Exam: Full ROM - Respiratory Exam Respiratory Exam: NORMAL BREATHING PATTERN - Cardiovascular Exam Cardiovascular Exam: REGULAR RHYTHM - GI/Abdominal Exam GI & Abdominal Exam: Tenderness Additional comments: ascitis - Extremities Exam Extremities Exam: Full ROM - Back Exam Back Exam: NORMAL INSPECTION - Neurological Exam Neurological Exam: Alert, Awake, Normal Gait, Oriented x3 - Psychiatric Exam Psychiatric exam: Normal Affect - Skin Skin Exam: Normal Color Assessment and Plan - Assessment and Plan (Free Text) Assessment: abd pain ascitis abdominal wall oeadeama tundisc aneamia Plan: as orderd
[2018-07-18] MEDS: D5W IVPB SCH ×2 (00:28→11:35)
[2018-07-18] MEDS: CIPROFLOXACIN 400 MG/200 ML IVPB SCH ×2 (00:28→11:35)
[2018-07-18 08:25] VITALS: PULSE 71; TEMP 99; O2SAT 99
[2018-07-18 08:40] LABS: HEMOGLOBIN 8.6 g/dL (11.0-16.0); MEAN CELL VOLUME 88.2 fL (81.0-99.0); MEAN CORPUSCULAR HEMOGLOBIN 27.6 pg (27.0-31.0); MEAN CORPUSCULAR HGB CONC 31.3 g/dL (33.0-37.0); MEAN PLATELET VOLUME 9.3 fL (7.2-11.7); RBC 3.13 Mil/uL (3.80-5.20); RED CELL DISTRIBUTION WIDTH 19.4 % (11.5-14.5); WHITE BLOOD COUNT 3.5 K/uL (4.8-10.8)
[2018-07-18 09:00] LABS: ALB/GLOB RATIO 0.6 (1.0-2.1); ALBUMIN 2.3 g/dL (3.5-5.0); ALT/SGPT 30 U/L (9-52); AST/SGOT 65 U/L (14-36); BLOOD UREA NITROGEN 6 mg/dL (7-17); CALCIUM 6.9 mg/dl (8.6-10.4); GFR NON-AFRICAN AMERICAN > 60
[2018-07-18] MEDS: Multiple Vitamins Tab PO SCH (09:33)
[2018-07-18] MEDS: Potassium Chloride 20 mEq/15 ml LIQ UD PO SCH (09:34)
[2018-07-18 09:39] VITALS: BP 104/66
[2018-07-18] MEDS: Ferric Sodium Gluconat Complex 125 MG in Sodium Chloride 0.9% 100 ML IVPB SCH (10:39)
[2018-07-18] MEDS ORDERED: Potassium Chloride 20 mEq ER Tab PO ONE (11:00)
--- NOTE | 2018-07-18 11:22 | CP.PCM.PN ---
Subjective - Date & Time of Evaluation Date of Evaluation: 07/18/18 Time of Evaluation: 11:19 - Subjective Subjective: pt less abd paini distension slight discomfort Objective - Vital Signs/Intake and Output Vital Signs (last 24 hours): Temp Pulse Resp BP Pulse Ox 99.0 F 71 20 104/66 99 07/18/18 07:00 07/18/18 07:00 07/18/18 07:00 07/18/18 09:32 07/18/18 07:00 - Medications Medications: Current Medications Alprazolam (Xanax) 0.5 mg PO BID PRN PRN Reason: Anxiety Last Admin: 07/17/18 23:09 Dose: 0.5 mg Diphenhydramine HCl (Benadryl) 25 mg PO Q8 PRN PRN Reason: Itching / Pruritus Folic Acid (Folic Acid) 1 mg PO DAILY [facility] Last Admin: 07/18/18 09:33 Dose: 1 mg Furosemide (Lasix) 40 mg IVP BID [facility] Last Admin: 07/18/18 09:32 Dose: 40 mg Ciprofloxacin (Cipro 400mg/200ml Dsw) 400 mg in 200 mls @ 133 mls/hr IVPB Q12H [facility]; Protocol Last Admin: 07/18/18 00:28 Dose: 133 mls/hr Ferric Sodium Gluconate Complex 125 mg/ Sodium Chloride 110 mls @ 110 mls/hr IVPB DAILY [facility] Stop: 07/21/18 10:59 Last Admin: 07/18/18 10:39 Dose: 110 mls/hr Multivitamins (Hexavitamin) 1 tab PO DAILY [facility] Last Admin: 07/18/18 09:33 Dose: 1 tab Ondansetron HCl (Zofran Tab) 4 mg PO Q6 PRN PRN Reason: Nausea/Vomiting Last Admin: 07/18/18 09:41 Dose: 4 mg Spironolactone (Aldactone) 25 mg PO BID [facility] Last Admin: 07/18/18 09:33 Dose: 25 mg Thiamine HCl (Vitamin B1 Tab) 100 mg PO DAILY [facility] Last Admin: 07/18/18 09:33 Dose: 100 mg Tramadol HCl (Ultram) 50 mg PO Q6 PRN PRN Reason: Pain, moderate (4-7) Last Admin: 07/18/18 07:26 Dose: 50 mg - Labs Labs: 07/18/18 08:29 07/18/18 08:29 PT 15.8 SECONDS (9.7-12.2) H 07/14/18 18:56 INR 1.4 07/14/18 18:56 APTT 37 SECONDS (21-34) H 07/14/18 18:56 - Constitutional Appears: Non-toxic - Head Exam Head Exam: NORMAL INSPECTION - Eye Exam Eye Exam: Normal appearance Pupil Exam: NORMAL ACCOMODATION - ENT Exam ENT Exam: Mucous Membranes Moist - Neck Exam Neck Exam: Normal Inspection - Respiratory Exam Respiratory Exam: Clear to Ausculation Bilateral - Cardiovascular Exam Cardiovascular Exam: REGULAR RHYTHM - GI/Abdominal Exam GI & Abdominal Exam: Distended, Normal Bowel Sounds Additional comments: ascitis - Extremities Exam Extremities Exam: Normal Inspection - Back Exam Back Exam: NORMAL INSPECTION - Neurological Exam Neurological Exam: Alert, Awake, Normal Gait, Oriented x3 - Psychiatric Exam Psychiatric exam: Normal Affect - Skin Skin Exam: Normal Color Assessment and Plan - Assessment and Plan (Free Text) Assessment: ascitis liver scirosis hypokaleamia aneamia s/p alc abuse Plan: will d/c cont med f.u in office one weeke
--- NOTE | 2018-07-18 11:39 | CP.PCM.PN ---
Subjective - Date & Time of Evaluation Date of Evaluation: 07/18/18 Time of Evaluation: 11:39 - Subjective Subjective: PATIENT SEEN AND EXAMINED AT THE BEDSIDE Objective - Vital Signs/Intake and Output Vital Signs (last 24 hours): Temp Pulse Resp BP Pulse Ox 99.0 F 71 20 104/66 99 07/18/18 07:00 07/18/18 07:00 07/18/18 07:00 07/18/18 09:32 07/18/18 07:00 - Medications Medications: Current Medications Alprazolam (Xanax) 0.5 mg PO BID PRN PRN Reason: Anxiety Last Admin: 07/17/18 23:09 Dose: 0.5 mg Diphenhydramine HCl (Benadryl) 25 mg PO Q8 PRN PRN Reason: Itching / Pruritus Folic Acid (Folic Acid) 1 mg PO DAILY [facility] Last Admin: 07/18/18 09:33 Dose: 1 mg Furosemide (Lasix) 40 mg IVP BID [facility] Last Admin: 07/18/18 09:32 Dose: 40 mg Ciprofloxacin (Cipro 400mg/200ml Dsw) 400 mg in 200 mls @ 133 mls/hr IVPB Q12H [facility]; Protocol Last Admin: 07/18/18 11:35 Dose: 133 mls/hr Ferric Sodium Gluconate Complex 125 mg/ Sodium Chloride 110 mls @ 110 mls/hr IVPB DAILY [facility] Stop: 07/21/18 10:59 Last Admin: 07/18/18 10:39 Dose: 110 mls/hr Multivitamins (Hexavitamin) 1 tab PO DAILY [facility] Last Admin: 07/18/18 09:33 Dose: 1 tab Ondansetron HCl (Zofran Tab) 4 mg PO Q6 PRN PRN Reason: Nausea/Vomiting Last Admin: 07/18/18 09:41 Dose: 4 mg Spironolactone (Aldactone) 25 mg PO BID [facility] Last Admin: 07/18/18 09:33 Dose: 25 mg Thiamine HCl (Vitamin B1 Tab) 100 mg PO DAILY [facility] Last Admin: 07/18/18 09:33 Dose: 100 mg Tramadol HCl (Ultram) 50 mg PO Q6 PRN PRN Reason: Pain, moderate (4-7) Last Admin: 07/18/18 07:26 Dose: 50 mg - Labs Labs: 07/18/18 08:29 07/18/18 08:29 PT 15.8 SECONDS (9.7-12.2) H 07/14/18 18:56 INR 1.4 07/14/18 18:56 APTT 37 SECONDS (21-34) H 07/14/18 18:56 Assessment and Plan - Assessment and Plan (Free Text) Assessment: FOLLOW UP WITH DR BLACKMAN IN HER OFFICE -----CALL FOR APPOINTMENT FOLLOW UP WITH DR BENTON IN HIS OFFICE -----CALL FOR APPOINTMENT ADDRESS YOUR LIVER CIRRHOSIS AT YOUR VISIT [facility] MEDICATION NEW PRESCRIPTION GIVEN FOLIC ACID 1 MG ONE TAB BY MOUTH DAILY VIT B1 100 MG ONE TAB BY MOUTH DAILY ALDACTONE 25 MG ONE TAB TWICE A DAY TRAMADOL 50 MG ONE TAB BY MOUTH EVERY 12 H FOR 3 DAYS MULTIVITA ONE TAB DAILY BY MOUTH ACTIVITY TOLERATED CALL DR BLACKMAN OR GO TO THE EMERGENCY ROOM IF SYMPTOM RETURN OR WORSENING
[2018-07-18] MEDS ORDERED: Potassium Chloride 20 mEq/15 ml LIQ UD PO ONE (12:00)
== END 2018-07-18 14:22 | disposition home or self-care (01) ==
LOC: C.ER 17:47 → C.6T 19:45
PROVIDERS: ADMIT Internal Medicine; ATTEND Internal Medicine
DX: K70.31 Alcoholic cirrhosis of liver with ascites (principal); F10.10 Alcohol abuse, uncomplicated; D64.9 Anemia, unspecified; I10 Essential (primary) hypertension; J45.909 Unspecified asthma, uncomplicated; M19.90 Unspecified osteoarthritis, unspecified site; F32.9 Major depressive disorder, single episode, unspecified; Z88.0 Allergy status to penicillin
CPT/HCPCS: 36415; 36430; 49083; 71045; 80048; 80053; 80320; 80324; 80345; 80346; 80349; 80353; 80358; 80361; 81001; 82140; 83540; 83550; 83735; 83880; 83992; 84484; 84703; 85025; 85027; 85610; 85730; 86850; 86900; 86920; 96365; 96366; 96367; 96372; 96375; 96376; 99285; G0328; G0378; J0744; J1885; J1940; J2916; J3430; P9051

== ENCOUNTER 2018-07-30 08:51 | Day surgery (SDC) | payer OTHER ==
[2018-07-24 09:54] VITALS: BMI 43.6
[2018-07-30 09:41] LABS: HEMOGLOBIN 9.9 g/dL (11.0-16.0); MEAN CELL VOLUME 86.7 fL (81.0-99.0); MEAN CORPUSCULAR HEMOGLOBIN 27.7 pg (27.0-31.0); MEAN CORPUSCULAR HGB CONC 31.9 g/dL (33.0-37.0); MEAN PLATELET VOLUME 9.1 fL (7.2-11.7); RBC 3.57 Mil/uL (3.80-5.20); RED CELL DISTRIBUTION WIDTH 18.6 % (11.5-14.5); WHITE BLOOD COUNT 3.3 K/uL (4.8-10.8)
[2018-07-30] MEDS ORDERED: Propofol 10 mg/ml Inj (20 ML) ONE (10:07)
[2018-07-30] MEDS ORDERED: Midazolam 2 MG/2 ML VIAL ONE (10:08)
[2018-07-30 12:43] VITALS: O2SAT 100
[2018-07-30 12:51] VITALS: BP 105/49; PULSE 58; RESP 15; TEMP 97.6
--- NOTE | 2018-07-31 08:15 | OP ---
PROCEDURE DATE: 07/30/2018 PREOPERATIVE DIAGNOSIS: This is a 33-year-old 2, para 2, with menometrorrhagia, fibroid uterus . POSTOPERATIVE DIAGNOSIS: This is a 33-year-old 2, para 2, with menometrorrhagia and fibroid uterus . SURGEON: Fernando Varela MD GEOSCIENCE SPECIALIST SURGEON: None. ANESTHESIA: General anesthesia. ANESTHESIOLOGIST: . COMPLICATIONS: None. PROCEDURE PERFORMED: Suction dilation and curettage and hysteroscopy.. DESCRIPTION OF PROCEDURE: After informed consent was obtained, the patient was brought to the operating room, placed on the table where general anesthesia was given. Once the anesthesia was given, the patient was prepped and draped in normal sterile fashion. Examination found the uterus to be about 8 weeks' size. No pelvic or adnexal mass. The anterior lip of cervix was grasped with a tenaculum. Gentle dilatation of the cervix was done and then hysteroscope was introduced and found that there was a fibroid, submucosal fibroid on the posterior wall of the uterus. Decision was made to use the MyoSure. MyoSure was used to take out the fibroid. It was later sent to Pathology. Then after sharp curettage at the wall of the uterus was done. Then ECC was sent to Pathology. After that, tenaculum was taken out. The patient tolerated the procedure well. All lap, sponge, and instrument counts were correct x2. Deficit was less than 300 mL. Fernando Varela MD
== END 2018-07-30 13:04 | disposition home or self-care (01) ==
LOC: C.SDS 08:51
PROVIDERS: ATTEND Obstetrics & Gynecology
DX: N92.1 Excessive and frequent menstruation with irregular cycle (principal); N84.1 Polyp of cervix uteri
CPT/HCPCS: 36415; 58558; 85027; 88305; J2250; J2270; J2405; J2704; J3010